=== PATIENT | female | born 1935 | race Caucasian/White ===

== ENCOUNTER 2016-09-03 09:01 | Emergency (ER) | payer MEDICARE, BC ==
[~2016-09-03] VITALS: Ht 170.2 cm; Wt 65.0 kg
[~2016-09-03 09:01] MED LIST: ALBU17I INH; AMIO200T PO; ATOR40TA16 PO; CALC750T PO; DIPH25CA PO; FURO20TA PO; GUAI200UDC PO; IPRA0.03; JINT1TAB PO; LISI10TA3 PO; METO50TA11 PO; MULT-65 PO; OMEG12002 PO; POTA-163 PO; PRED20 PO; VENTAER INH; XARE20TA PO
[2016-09-03 09:05] VITALS: BP 112/74; PULSE 106; RESP 20; TEMP 98.6; O2SAT 94; O2SAT 95
[2016-09-03] MEDS ORDERED: TRAM1CAP21 PO (09:12)
[2016-09-03] MEDS ORDERED: OMEG12002 PO (09:12)
[2016-09-03] MEDS ORDERED: CALC1TAB77 PO (09:12)
[2016-09-03] MEDS ORDERED: JINT1TAB PO (09:12)
[2016-09-03] MEDS ORDERED: VENTAER INH (09:16)
[2016-09-03] MEDS ORDERED: IPRA17I INH (09:16)
--- NOTE | 2016-09-03 09:27 | PD ---
HPI Chief Complaint: weak and dizzy Time Seen by Provider: 09:05 Travel History International Travel<30 days: No Contact w/Intl Traveler<30days: No Traveled to known affect area: No History of Present Illness HPI The patient was seen and examined in the presence of the nurse. This patient complains of feeling dizziness and generalized weakness. Duration one day. Severity is moderate. No alleviating factors. She has had a stroke before and is wheelchair bound. sHe has chronic A. fib on Xarelto. She denies injury or acute pain. PFSH Past Medical History Hx Anticoagulant Therapy: Yes (ASA) Arthritis: Yes (whole body) Asthma: No Autoimmune Disease: No Heart Rhythm Problems: No Cancer: No Cardiovascular Problems: Yes High Cholesterol: Yes Chest Pain: No Congestive Heart Failure: Yes COPD: No Cerebrovascular Accident: Yes (RT SIDE WEAKNESS A RESULT) Diminished Hearing: No Endocrine: No Gastrointestinal Disorders: No GERD: No Genitourinary: No Headaches: No Hiatal Hernia: No Hypertension: Yes (25 years ago) Immune Disorder: No Implanted Vascular Access Dvce: Yes Kidney Stones: No Musculoskeletal: Yes Neurologic: Yes Psychiatric: No Reproductive: No Respiratory: Yes Immunizations Current: Yes Migraines: No Renal Failure: No Seizures: No Sickle Cell Disease: No Sleep Apnea: Yes Menopausal: Yes Dilation and Curettage (D&C): Yes Tubal Ligation: Yes Past Surgical History Abdominal Surgery: No AICD: No Arteriovenous Shunt: No Body Medical Devices: hx: left shoulder surgery with hardware Cardiac Surgery: No Ear Surgery: No Endocrine Surgery: No Eye Surgery: No Genitourinary Surgery: No Gynecologic Surgery: No Insulin Pump: No Joint Replacement: No Neurologic Surgery: Yes (C7 FUSION 25 years ago) Oral Surgery: No Pacemaker: No Thoracic Surgery: No Tonsillectomy: Yes Other Surgery: Yes Social History Alcohol Use: Yes (2 glasses of wine on occasion) Tobacco Use: No Substance Use: No Allergies-Medications (Allergen,Severity, Reaction): Uncoded Allergies: narcotics (Allergy, Intermediate, Hives, 05/01/14) Reported Meds & Prescriptions Reported Meds & Active Scripts Active Reported Ventolin Hfa 18 GM Inh (Albuterol Sulfate) 90 Mcg/Act Aer 2 Puff INH Q4-6H PRN Atrovent HFA 12.9 GM Inh (Ipratropium [facility]) 17 Mcg/Act Aer 2 Puff INH TID Pelham 3 1200 mg (Pelham-3 Fatty Acids) 1 Cap Cap 1 Cap PO DAILY Calcium 500+D3 (Calcium Carbonate-Cholecalciferol) 1,250-400 Mg-Unit Tab 1 Tab PO DAILY Tramadol ER 24 HR (Tramadol HCl) 100 Mg Caper 100 Mg PO DAILY Jinteli 1/5 (Norethindrone-Ethinyl Estradiol) 1-5 Mg-Mcg Tab 1 Tab PO DAILY Multi-Vitamin Daily (Multiple Vitamin) 1 Tab Tab 1 Tab PO DAILY Atorvastatin (Atorvastatin Calcium) 40 Mg Tab 40 Mg PO HS Xarelto (Rivaroxaban) 20 Mg Tab 20 Mg PO DAILY@2100 30 Days Amiodarone (Amiodarone HCl) 200 Mg Tab 200 Mg PO DAILY Diphenhydramine (Diphenhydramine HCl) 25 Mg Cap 25 Mg PO HS Furosemide 20 Mg Tab 20 Mg PO DAILY 30 Days Metoprolol Succinate ER 24 HR (Metoprolol Succinate) 50 Mg Tab 50 Mg PO BID Potassium Chloride ER (Potassium Chloride) 20 Meq Tab 20 Meq PO DAILY Review of Systems General / Constitutional: No: Fever Eyes: No: Visual changes HENT: Positive: Lightheadedness, No: Headaches Cardiovascular: No: Chest Pain or Discomfort Respiratory: No: Shortness of Breath Gastrointestinal: Positive: Diarrhea, No: Abdominal Pain Genitourinary: No: Dysuria Musculoskeletal: Positive: Weakness, No: Pain Skin: No Rash Neurologic: Positive: Weakness, Dizziness Psychiatric: No: Depression Endocrine: No: Polydipsia Hematologic/Lymphatic: No: Easy Bruising Physical Exam Narrative GENERAL: Well-nourished, well-developed patient in no apparent distress. SKIN: Warm and dry. HEAD: Atraumatic. Normocephalic. EYES: Pupils equal and round. No scleral icterus. No injection or drainage. ENT: No nasal bleeding or discharge. Mucous membranes pink and moist. NECK: Trachea midline. No JVD. No meningeal signs CARDIOVASCULAR: Irregularly irregular rhythm. No murmur appreciated. RESPIRATORY: No accessory muscle use. Clear to auscultation. Breath sounds equal bilaterally. GASTROINTESTINAL: Abdomen soft, non-tender, nondistended. Hepatic and splenic margins not palpable. MUSCULOSKELETAL: No obvious deformities. No clubbing. No cyanosis. Minor symmetric edema the feet and ankles. NEUROLOGICAL: Awake and alert. No obvious cranial nerve deficits. Motor grossly within normal limits. Normal speech. PSYCHIATRIC: Appropriate mood and affect; insight and judgment seems a bit reduced Data Data Last Documented VS Vital Signs Date Time Temp Pulse Resp B/P Pulse Ox O2 Delivery O2 Flow Rate FiO2 09/03/16 09:34 95 Nasal Cannula 3 09/03/16 09:05 98.6 106 20 112/74 Orders Basic Metabolic Panel (Bmp) (09/03/16 09:18) Complete Blood Count With Diff (09/03/16:18) Urinalysis - C+S If Indicated (09/03/16:18) Ct Brain W/O Iv Contrast(Rout) (09/03/16:18) Ecg Monitoring (09/03/16:18) Iv Access Insert/Monitor (09/03/16:18) Oximetry (09/03/16:18) Sodium Chloride 0.9% Flush (Ns Flush) (09/03/16 09:30) Cath For Specimen (09/03/16:18) Labs Laboratory Tests Test 09/03/16 09:30 White Blood Count 14.2 TH/MM3 Red Blood Count 4.80 MIL/MM3 Hemoglobin 15.1 GM/DL Hematocrit 45.2 % Mean Corpuscular Volume 94.2 FL Mean Corpuscular Hemoglobin 31.4 PG Mean Corpuscular Hemoglobin 33.4 % Concent Red Cell Distribution Width 13.5 % Platelet Count 292 TH/MM3 Mean Platelet Volume 8.5 FL Neutrophils (%) (Auto) 85.9 % Lymphocytes (%) (Auto) 5.2 % Monocytes (%) (Auto) 6.4 % Eosinophils (%) (Auto) 2.3 % Basophils (%) (Auto) 0.2 % Neutrophils # (Auto) 12.2 TH/MM3 Lymphocytes # (Auto) 0.7 TH/MM3 Monocytes # (Auto) 0.9 TH/MM3 Eosinophils # (Auto) 0.3 TH/MM3 Basophils # (Auto) 0.0 TH/MM3 CBC Comment DIFF FINAL Differential Comment Urine Color YELLOW Urine Turbidity CLEAR Urine pH 6.5 Urine Specific [place] 1.018 Urine Protein NEG mg/dL Urine Glucose (UA) NEG mg/dL Urine Ketones NEG mg/dL Urine Occult Blood NEG Urine Nitrite NEG Urine Bilirubin NEG Urine Urobilinogen LESS THAN 2.0 MG/DL Urine Leukocyte Esterase NEG Urine RBC LESS THAN 1 /hpf Urine WBC 2 /hpf Urine Squamous Epithelial 3 /hpf Cells Urine Mucus FEW /lpf Microscopic Urinalysis Comment CATH-CULT NOT IND Sodium Level 139 MEQ/L Potassium Level 4.1 MEQ/L Chloride Level 107 MEQ/L Carbon Dioxide Level 26.1 MEQ/L Anion Gap 6 MEQ/L Blood Urea Nitrogen 19 MG/DL Creatinine 1.18 MG/DL Estimat Glomerular Filtration 44 ML/MIN Rate Random Glucose 78 MG/DL Calcium Level 8.2 MG/DL [facility] Medical Decision Making Medical Screen Exam Complete: Yes Emergency Medical Condition: Yes Medical Record Reviewed: Yes Differential Diagnosis Dehydration, intracranial hemorrhage, bronchitis Narrative Course I have reviewed the patient's electronic medical record. History of A. fib. Has been here for stroke and A. fib problems before IV placed CBC is normal Metabolic profile is normal Catheterized urine is clean I reviewed her EKG which shows A. fib with a rate of about 100 Extended cardiac monitoring reveals A. fib Brain CT is normal On recheck she is now a sinus rhythm in the 70s She feels much better. I have observed her for almost 3 hours and she has had no recurrence of symptoms Her is now at bedside reports that he thinks that she was straining on the toilet and passed out. She may have had a vasovagal type episode I don't see any neurologic deficits to suggest stroke Stable at this point for outpatient follow-up He is going to call the primary care and shuttle spotter for follow-ups and bring her back if she has a recurrent episode Diagnosis Primary Impression: Syncopal episodes Qualified Code: R55 - Vasovagal syncope Additional Impressions: Atrial fibrillation with rapid ventricular response Weakness Additional Instructions: The patient was advised to follow up with their physician and return if they worsen. Med/Other Pt SpecificInfo: Other Disposition: DISCHARGE HOME Condition: Stable Kingsley Clayton MD Sep 03, 2016 09:26
[2016-09-03] MEDS ORDERED: SODIUM CHLORIDE 0.9% FLUSH 5 ML FLUSH IVF PRN (09:30)
[2016-09-03 09:48] LABS: AUTOMATED NEUTROPHIL # 12.2 TH/MM3 (1.8-7.7); BASOPHIL % 0.2 % (0.0-2.0); EOSINOPHIL # 0.3 TH/MM3 (0-0.4); EOSINOPHIL % 2.3 % (0.0-4.0); HEMATOCRIT 45.2 % (35.0-46.0); HEMO FLAGS DIFF FINAL; LYMPH % 5.2 % (9.0-44.0); LYMPHOCYTE # 0.7 TH/MM3 (1.0-4.8); MEAN CELL VOLUME 94.2 FL (80.0-100.0); MEAN CORPUSCULAR HEMOGLOBIN 31.4 PG (27.0-34.0); MEAN CORPUSCULAR HGB CONC 33.4 % (32.0-36.0); MONO % 6.4 % (0.0-8.0); NEUT % 85.9 % (16.0-70.0); PLATELET COUNT 292 TH/MM3 (150-450); RED CELL DISTRIBUTION WIDTH 13.5 % (11.6-17.2); WHITE BLOOD COUNT 14.2 TH/MM3 (4.0-11.0)
[2016-09-03 09:54] LABS: BLOOD, URINE NEG (NEG); COMMENT (UR) CATH-CULT NOT IND; CULTURE IF INDICATED CATH CULTURE NOT IND; GLUCOSE,URINE NEG (NEG); KETONE, URINE NEG (NEG); MUCUS URINE FEW /lpf (OCC); NITRITE,URINE NEG (NEG); PH, URINE 6.5 (5.0-8.5); SQUAMOUS EPITHELIAL CELL URINE 3 /hpf (0-5); URINE COLOR YELLOW (YELLW/STRAW)
[2016-09-03 10:10] LABS: BICARBONATE 26.1 MEQ/L (21.0-32.0); POTASSIUM 4.1 MEQ/L (3.5-5.1)
--- NOTE | 2016-09-03 10:36 | RADRPT ---
EXAM DATE/TIME: 09/03/2016 09:33 [facility] COMPARISON: CT BRAIN W/O CONTRAST, April 30, 2016, 19:06. INDICATIONS : Dizziness. General weakness. RADIATION DOSE: 56.35 CTDIvol (mGy) MEDICAL HISTORY : Cerebrovascular disease. SURGICAL HISTORY : Fusion, cervical. ENCOUNTER: Initial ACUITY: 1 day PAIN SCALE: 0/10 LOCATION: cranial TECHNIQUE: Multiple contiguous axial images were obtained of the head. Using automated exposure control and adj ustment of the mA and/or kV according to patient size, radiation dose was kept as low as reasonably a chievable to obtain optimal diagnostic quality images. FINDINGS: There is stable symmetric ventriculomegaly and prominent periventricular white matter hypodensity whi ch appears grossly stable. There are old bilateral central gaines matter lacunar infarcts. There is no evidence of intracranial hemorrhage or mass. There is nothing to suggest acute infarction. The extrac ranial structures are stable, benign intact. CONCLUSION: No acute cranial findings Bg Johnson MD on September 03, 2016 at 10:07 Board Certified Radiologist. This report was verified electronically.
[2016-09-03 11:30] VITALS: BP 151/99; PULSE 71; RESP 20; O2SAT 98
[2016-09-03 13:00] VITALS: BP 130/72; PULSE 84; RESP 20; O2SAT 94
--- NOTE | 2016-09-03 14:16 | EKG ---
Date Performed: 09/03/2016 Time Performed: 09:15:16 PTAGE: 80 years EKG: ATRIAL FIBRILLATION BORDERLINE RIGHT AXIS DEVIATION MODERATE ST DEPRESSION ABNORMAL ECG PREVIOUS TRACING : 04/30/2016 19.15 DOCTOR: Rui Chavez Interpretating Date/Time 09/03/2016 14:13:10
== END 2016-09-03 13:22 | disposition home or self-care (01) ==
LOC: NEPE 09:01
DX: R55 Syncope and collapse (principal); I48.2 Chronic atrial fibrillation; R53.1 Weakness; Z79.01 Long term (current) use of anticoagulants
CPT/HCPCS: 70450; 80048; 81001; 85025; 93005; 99285; P9612

== ENCOUNTER → 2017-02-04 | Outpatient (CLI) | payer MEDICARE, BC ==
[~2017-02-04] MED LIST changes: -ALBU17I INH; +CALC1TAB77 PO; -CALC750T PO; -GUAI200UDC PO; -IPRA0.03; +IPRA17I INH; -LISI10TA3 PO; -PRED20 PO; +TRAM1CAP21 PO
[2017-02-04 13:39] LABS: BLOOD GAS BASE EXCESS -2.8 mmol/L (-2-2); BLOOD GAS CARBOXYHEMOGLOBIN 1.6 % (0-4); BLOOD GAS HCO3 21 mmol/L (22-26); BLOOD GAS METHEMOGLOBIN 1.2 % (0-2); BLOOD GAS O2 HGB SATURATION 90 % (90-100); BLOOD GAS OXYGEN CONTENT 17.2 Vol % (12.0-20.0); BLOOD GAS PCO2 30 mmHg (38-42); BLOOD GAS PO2 65 mmHg (61-120); BLOOD GAS TOTAL HGB 13.5 G/DL (12.0-16.0); TEMP CORR TO 98.6
[2017-02-04 13:40] LABS: CRITICAL VALUE NO; DRAW SITE RT RADIAL; FIO2 21 %; NUMBER OF ARTERIAL PUNCTURES 1; STAT NO; ULNAR PULSE PRESENT
--- NOTE | 2017-02-05 08:43 | RSPPFT ---
DATE OF PROCEDURE: 02/04/17 COMMENTS: VOLUMES DYNAMIC: FVC and FEV1 severely reduced. FLOWS: FEV1% mildly reduced; FEF 25-75 severely reduced. FLOW VOLUME LOOP: Pattern of variable intrathoracic airways obstruction. IMPRESSION: Severe obstructive ventilatory defect with a very good response to bronchodilator treatment. Patient was unable to perform diffusion or static lung volumes.
== END ==
LOC: HRSP 11:46
PROVIDERS: ATTEND Internal Medicine
DX: J44.9 Chronic obstructive pulmonary disease, unspecified (principal)
CPT/HCPCS: 36600; 82805; 94060

== ENCOUNTER 2017-09-05 13:08 | Inpatient (IN) | payer MEDICARE, BC ==
[~2017-09-05] VITALS: Ht 167.6 cm; Wt 55.0 kg
[2017-09-05] VITALS (10 sets, daily range): BP systolic 100–126; BP diastolic 56–69; PULSE 74–82; RESP 16–24; TEMP 96.3–98; O2SAT 77–97
[~2017-09-05 13:08] MED LIST changes: +METO1TAB9 PO; -METO50TA11 PO
[2017-09-05] MEDS: RESP: ALBUTEROL 2.5 MG/IPRATROPIUM 0.5 MG NEB (SCH) INH ×2 (13:26→13:27)
[2017-09-05] MEDS ORDERED: IPRA0.06 EACH NARE (13:35)
[2017-09-05] MEDS ORDERED: ALBUAER3 PO (13:35)
[2017-09-05] MEDS ORDERED: ACET-898 PO (13:35)
[2017-09-05] MEDS ORDERED: XARE15TA PO (13:35)
[2017-09-05] MEDS ORDERED: METO50TA PO (13:35)
[2017-09-05] MEDS ORDERED: ARTISOL3 EACH EYE (13:35)
[2017-09-05] MEDS ORDERED: ADVA100A INH (13:35)
[2017-09-05] MEDS ORDERED: METO-426 PO (13:35)
[2017-09-05] MEDS ORDERED: CETI10 PO (13:35)
[2017-09-05] MEDS ORDERED: DILT1CAP3 PO (13:35)
--- NOTE | 2017-09-05 13:37 | PD ---
HPI Chief Complaint: Respiratory Distress Time Seen by Provider: 13:12 Travel History International Travel<30 days: No Contact w/Intl Traveler<30days: No Traveled to known affect area: No History of Present Illness HPI This 81-year-old female is complaining of shortness of breath. She has a history of COPD. She says that she woke up this morning and was feeling short of breath. She is not aware of any fever or chills. She is not having any chest pain. She has a history of stroke and has not ambulatory. She has not been able to walk for about 2 years. She has severe rheumatoid arthritis. She has minimal smoking history. Today at the [facility] her oxygen saturation was in the 70s which is much lower than she has been previously PFSH Past Medical History Hx Anticoagulant Therapy: Yes (ASA) Arthritis: Yes (whole body) Asthma: No Autoimmune Disease: No Heart Rhythm Problems: No Cancer: No Cardiovascular Problems: Yes High Cholesterol: Yes Chest Pain: No Congestive Heart Failure: Yes COPD: No Cerebrovascular Accident: Yes (RT SIDE WEAKNESS A RESULT) Diminished Hearing: No Endocrine: No Gastrointestinal Disorders: No GERD: No Genitourinary: No Headaches: No Hiatal Hernia: No Hypertension: Yes (25 years ago) Immune Disorder: No Implanted Vascular Access Dvce: Yes Kidney Stones: No Musculoskeletal: Yes Neurologic: Yes Psychiatric: No Reproductive: No Respiratory: Yes Immunizations Current: Yes Migraines: No Renal Failure: No Seizures: No Sickle Cell Disease: No Sleep Apnea: Yes Menopausal: Yes Dilation and Curettage (D&C): Yes Tubal Ligation: Yes Past Surgical History Abdominal Surgery: No AICD: No Arteriovenous Shunt: No Body Medical Devices: hx: left shoulder surgery with hardware Cardiac Surgery: No Ear Surgery: No Endocrine Surgery: No Eye Surgery: No Genitourinary Surgery: No Gynecologic Surgery: No Insulin Pump: No Joint Replacement: No Neurologic Surgery: Yes (C7 FUSION 25 years ago) Oral Surgery: No Pacemaker: No Thoracic Surgery: No Tonsillectomy: Yes Other Surgery: Yes Social History Alcohol Use: Yes (2 glasses of wine on occasion) Tobacco Use: No (former) Substance Use: No Allergies-Medications (Allergen,Severity, Reaction): Coded Allergies: adhesive tape (Verified Allergy, Intermediate, 09/05/17) Uncoded Allergies: narcotics (Allergy, Intermediate, Hives., 09/05/17) Reported Meds & Prescriptions Reported Meds & Active Scripts Active Reported Proair Hfa (Albuterol Sulfate) 90 Mcg Hfa.aer.ad 2 Puff PO QID PRN Artificial Tears (Dextran 70/Hypromellose) 1 Each Droperette 1-2 Drop EACH EYE DIRECTED Acetaminophen Extra Strength (Acetaminophen) 500 Mg Tablet 1,000 Mg PO Q6HR PRN Metoprolol Tartrate 75 Mg Tab 75 Mg PO DAILY Metoprolol Tartrate 50 Mg Tab 50 Mg PO HS Ipratropium Nasal 0.06% Tobyhanna 2 Tobyhanna EACH NARE TID Diltiazem 24Hr ER (Diltiazem HCl) 180 Mg Cap.sa.24h 180 Mg PO DAILY Cetirizine (Cetirizine HCl) 10 Mg Tab 10 Mg PO DAILY Advair Diskus Inh (Fluticasone-Salmeterol Inh) 100-50 Mcg/Blist Aer 1 Puff INH BID Rinse mouth after use. Xarelto (Rivaroxaban) 15 Mg Tab 15 Mg PO DAILY Tramadol ER 24 HR (Tramadol HCl) 100 Mg Caper 100 Mg PO BID PRN Jinteli 1/5 (Norethindrone-Ethinyl Estradiol) 1-5 Mg-Mcg Tab 1 Tab PO DAILY Multi-Vitamin Daily (Multiple Vitamin) 1 Tab Tab 1 Tab PO DAILY Atorvastatin (Atorvastatin Calcium) 40 Mg Tab 40 Mg PO HS Amiodarone (Amiodarone HCl) 200 Mg Tab 200 Mg PO DAILY Furosemide 20 Mg Tab 20 Mg PO DAILY 30 Days Potassium Chloride ER (Potassium Chloride) 20 Meq Tab 10 Meq PO DAILY Review of Systems Except as stated in HPI: all other systems reviewed are Neg General / Constitutional: No: Fever, Chills Eyes: No: Diploplia HENT: No: Headaches, Vertigo Cardiovascular: No: Chest Pain or Discomfort Respiratory: Positive: Cough, Shortness of Breath, Wheezing Gastrointestinal: No: Vomiting, Diarrhea Genitourinary: No: Urgency, Frequency Musculoskeletal: Positive: Arthralgias, No: Myalgias Skin: No Rash Neurologic: Positive: Weakness Endocrine: No: Heat Intolerance, Cold Intolerance Physical Exam Narrative GENERAL: Thin chronically ill appearing female. She tilts to the right SKIN: Focused skin assessment warm/dry. There is senile purpura HEAD: Atraumatic. Normocephalic. EYES: Pupils equal and round. No scleral icterus. No injection or drainage. ENT: No nasal bleeding or discharge. Mucous membranes pink and moist. NECK: Trachea midline. No JVD. CARDIOVASCULAR: Regular rate and rhythm. No murmur appreciated. RESPIRATORY: accessory muscle use. Diminished breath sounds bilaterally, occasional rhonchi and scattered wheezes GASTROINTESTINAL: Abdomen soft, non-tender, nondistended. Hepatic and splenic margins not palpable. MUSCULOSKELETAL: Multiple deformities of the hands consistent with rheumatoid arthritis. There is weakness of both legs NEUROLOGICAL: Awake and alert. No obvious cranial nerve deficits. Motor grossly within normal limits. Normal speech. PSYCHIATRIC: Appropriate mood and affect; insight and judgment normal. Data Data Last Documented VS Vital Signs Date Time Temp Pulse Resp B/P (MAP) Pulse Ox O2 Delivery O2 Flow Rate FiO2 09/05/17 14:03 18 96 Nasal Cannula 4.00 09/05/17 13:20 98.0 78 126/69 (88) Orders Orders Complete Blood Count With Diff (09/05/17 13:19) Comprehensive Metabolic Panel (09/05/17 13:19) B-Type Natriuretic Peptide (09/05/17 13:19) Act Partial Throm Time (Ptt) (09/05/17 13:19) Prothrombin Time / Inr (Pt) (09/05/17 13:19) Troponin I (09/05/17 13:19) Urinalysis - C+S If Indicated (09/05/17 13:19) Influenzae A/B Antigen (09/05/17 13:19) Blood Culture (09/05/17 13:19) Iv Access Insert/Monitor (09/05/17 13:19) Electrocardiogram (09/05/17 13:19) Ecg Monitoring (09/05/17 13:19) Oximetry (09/05/17 13:19) Oxygen Administration (09/05/17 13:19) Chest, Single Ap (09/05/17 13:19) Sodium Chloride 0.9% Flush (Ns Flush) (09/05/17 13:30) Albuterol-Ipratropium Neb (Duoneb Neb) (09/05/17 13:30) Admit Order (Ed Use Only) (09/05/17 15:01) Labs Laboratory Tests Test 09/05/17 13:45 White Blood Count 11.6 TH/MM3 Red Blood Count 4.24 MIL/MM3 Hemoglobin 12.9 GM/DL Hematocrit 38.6 % Mean Corpuscular Volume 91.0 FL Mean Corpuscular Hemoglobin 30.4 PG Mean Corpuscular Hemoglobin Concent 33.4 % Red Cell Distribution Width 13.3 % Platelet Count 351 TH/MM3 Mean Platelet Volume 7.9 FL Neutrophils (%) (Auto) 81.6 % Lymphocytes (%) (Auto) 7.2 % Monocytes (%) (Auto) 5.9 % Eosinophils (%) (Auto) 3.2 % Basophils (%) (Auto) 2.1 % Neutrophils # (Auto) 9.5 TH/MM3 Lymphocytes # (Auto) 0.8 TH/MM3 Monocytes # (Auto) 0.7 TH/MM3 Eosinophils # (Auto) 0.4 TH/MM3 Basophils # (Auto) 0.2 TH/MM3 CBC Comment AUTO DIFF Differential Comment AUTO DIFF CONFIRMED Prothrombin Time 14.0 SEC Prothromb Time International Ratio 1.4 RATIO Activated Partial Thromboplast Time 37.8 SEC Blood Urea Nitrogen 20 MG/DL Creatinine 1.50 MG/DL Random Glucose 88 MG/DL Total Protein 7.5 GM/DL Albumin 2.5 GM/DL Calcium Level 8.0 MG/DL Alkaline Phosphatase 63 U/L Aspartate Amino Transf (AST/SGOT) 64 U/L Alanine Aminotransferase (ALT/SGPT) 62 U/L Total Bilirubin 0.9 MG/DL Sodium Level 136 MEQ/L Potassium Level 4.5 MEQ/L Chloride Level 103 MEQ/L Carbon Dioxide Level 24.9 MEQ/L Anion Gap 8 MEQ/L Estimat Glomerular Filtration Rate 33 ML/MIN Troponin I LESS THAN 0.02 NG/ML B-Type Natriuretic Peptide 205 PG/ML [facility] Medical Decision Making Medical Screen Exam Complete: Yes Emergency Medical Condition: Yes Medical Record Reviewed: Yes Differential Diagnosis Differential includes pneumonia, CHF, COPD exacerbation Narrative Course Patient had been given Solu-Medrol en route by paramedics. She has been given repeated nebulizer treatments her wheezing has resolved she still has occasional rhonchi. Her oxygen saturation on 5 L is 94%. I did cut off her oxygen and her saturation dropped to 86 very quickly. Chest x-ray shows progression of some interstitial bilateral changes. Her white count is 11,000. Case discussed with Dr. Duarte. She will be admitted for COPD exacerbation Diagnosis Primary Impression: COPD exacerbation Additional Impression: Hypoxia Admitting Information Admitting Physician Requests: Admit Ramon Andres MD Sep 05, 2017 13:37
[2017-09-05 14:04] LABS: AUTOMATED NEUTROPHIL # 9.5 TH/MM3 (1.8-7.7); BASOPHIL # 0.2 TH/MM3 (0-0.2); BASOPHIL % 2.1 % (0.0-2.0); EOSINOPHIL # 0.4 TH/MM3 (0-0.4); EOSINOPHIL % 3.2 % (0.0-4.0); HEMATOCRIT 38.6 % (35.0-46.0); HEMOGLOBIN 12.9 GM/DL (11.6-15.3); LYMPH % 7.2 % (9.0-44.0); LYMPHOCYTE # 0.8 TH/MM3 (1.0-4.8); MEAN CORPUSCULAR HEMOGLOBIN 30.4 PG (27.0-34.0); MEAN CORPUSCULAR HGB CONC 33.4 % (32.0-36.0); MEAN PLATELET VOLUME 7.9 FL (7.0-11.0); MONO % 5.9 % (0.0-8.0); MONOCYTE # 0.7 TH/MM3 (0-0.9); NEUT % 81.6 % (16.0-70.0); PLATELET COUNT 351 TH/MM3 (150-450); RED BLOOD COUNT 4.24 MIL/MM3 (4.00-5.30); RED CELL DISTRIBUTION WIDTH 13.3 % (11.6-17.2); WHITE BLOOD COUNT 11.6 TH/MM3 (4.0-11.0)
[2017-09-05 14:12] LABS: CHLORIDE 103 MEQ/L (98-107); SODIUM (NA) 136 MEQ/L (136-145)
[2017-09-05 14:16] LABS: ALBUMIN 2.5 GM/DL (3.4-5.0); BICARBONATE 24.9 MEQ/L (21.0-32.0); BLOOD UREA NITROGEN 20 MG/DL (7-18); GLUCOSE,RANDOM 88 MG/DL (74-106)
[2017-09-05 14:18] LABS: INTERNATIONAL NORMALIZED RATIO 1.4 RATIO
[2017-09-05 14:19] LABS: ALT (GPT) 62 U/L (10-53); AST (GOT) 64 U/L (15-37); GLOMERULAR FILTRATION RATE 33 ML/MIN (>89)
[2017-09-05 14:20] LABS: TOTAL BILIRUBIN ADULT 0.9 MG/DL (0.2-1.0); TOTAL PROTEIN 7.5 GM/DL (6.4-8.2)
[2017-09-05 14:22] LABS: ALKALINE PHOSPHATASE 63 U/L (45-117)
[2017-09-05 14:24] LABS: TROPONIN I LESS THAN 0.02 NG/ML (0.02-0.05)
--- NOTE | 2017-09-05 14:25 | RADRPT ---
EXAM DATE/TIME: 09/05/2017 13:41 [facility] COMPARISON: CHEST PA & LAT, April 30, 2016, 22:31. CHEST SINGLE AP, February 24, 2016, 10:10. INDICATIONS : Short of breath. MEDICAL HISTORY : Congestive heart failure. Hypercholesterolemia. Rheumatoid arthritis. Hypertension. Stroke. Osteo porosis. Gout. A-fib. Sleep apnea. SURGICAL HISTORY : Fusion, cervical. Tubal ligation. Right shoulder. D&C. ENCOUNTER: Initial ACUITY: 1 day PAIN SCORE: 0/10 LOCATION: chest FINDINGS: A single portable frontal view the chest shows interstitial prominence throughout the lungs bilateral ly. This involves the upper lobes and lower lobes. These have progressed from the prior study. No int ra-alveolar infiltrates. No effusions. Heart is normal in size. Aorta is calcified. Orthopedic screw is seen involving the left scapula. CONCLUSION: Progression in bilateral chronic interstitial changes. No acute infiltrate. Shaggy Cantor Jr., MD on September 05, 2017 at 14:21 Board Certified Radiologist. This report was verified electronically.
[2017-09-05] MEDS: SODIUM CHLOR 0.9% 1000 ML INJ 1,000 ML IV SCH (16:54)
[2017-09-05] MEDS: RESP: ALBUTEROL 2.5 MG/IPRATROPIUM 0.5 MG NEB (SCH) NEB (19:06)
--- NOTE | 2017-09-05 19:46 | MH ---
cc: HALLEY EPPS MD DATE OF ADMISSION 09/05/2017 ADMISSION DIAGNOSIS Exacerbation of COPD, hypoxemia. HISTORY OF PRESENT ILLNESS This 81-year white female, relatively new to the undersigned physician, has a history of COPD and normally is not oxygen dependent. She has been complaining of some increased shortness of breath and was started on nebulizer treatments with albuterol and Ipratropium bromide. The patient initially had some improvement, but over the last 48 hours she has had increasing shortness of breath. On the morning of admission, she was lethargic and visibly short of breath. The home health nurse was there to see her and checked oxygen saturation which revealed a level of 79% on room air. At that time, the undersigned physician was notified and the personnel at the assisted living facility were instructed to contact EMS and have the patient transferred to this facility for further evaluation and treatment. The patient denies any cough or sputum production. She has no chest pain or palpitations. She has had no abdominal pain, nausea or vomiting. The patient spends most of the day in the bed, but she is up in a wheelchair for several hours each day. She requires total assistance with all of her activities of daily living. She has a previous history of a cerebrovascular accident and she also has rheumatoid arthritis with advanced musculoskeletal deformities as a result. The patient has a history of atrial fibrillation and remains on Xarelto for prophylaxis against embolism. She has had no melena or hematochezia. She states her bowels are moving regularly. She is continent of urine for the most part. She has had no lateralizing neurologic deficits. No visual changes. No headache. She does have some audible wheezing at times. Her appetite has been good. PAST MEDICAL HISTORY 1. Rheumatoid arthritis 2. Cervical and lumbar disk disease with spinal stenosis, 3. Hypertension, 4. Peripheral vascular disease, 5. History of CVA 6. Paroxysmal atrial fibrillation for which she sees Dr. Velez 7. Chronic obstructive pulmonary disease 8. Osteoporosis. 9. History of alcohol abuse. 10. Status post cervical spine surgery 11. Tonsillectomy 12. Foot surgery. 13. History of recurrent postmenopausal vaginal bleeding from a probable fibroid. It is being treated with hormone suppression. MEDICATIONS Current are 1. Ipratropium bromide. 2. Albuterol nebulizer solution 0.5 mg/2.5 mg per three mL, 3 mL four times a day as needed. 3. Artificial tears 1.4% 1-2 drops in each eye four times a day as needed. 4. Acetaminophen 500 mg 2 tablets every 6 hours as needed for mild pain 5. Xarelto 15 mg daily. 6. Multivitamin 1 tablet daily. 7. Cetirizine 10 mg at bedtime 8. Ipratropium bromide nasal spray 0.03% two sprays in each nostril three times a day as needed. 9. Diltiazem ER 180 mg daily. 10. Advair diskus 100/50 mcg one inhalation twice daily. 11. Albuterol sulfate inhaler two puffs four times a day as needed. 12. Klor-Con 20 mEq 1/2 tablet daily. 13. Metoprolol tartrate 50 mg 1.5 tablets in the morning and 1 tablet in the evening. 14. Furosemide 20 mg daily. 15. Amiodarone 200 mg daily. 16. Atorvastatin 40 mg daily 17. Ginteli 1/5 mg - mcg 1 tablet daily. 18. Tramadol ER 100 mg 1-2 tablets daily as needed for pain 19. Melatonin 5 mg at bedtime as needed for insomnia. ALLERGIES NARCOTIC ANALGESICS - RASH FAMILY HISTORY Noncontributory SOCIAL HISTORY She is . She lives in an assisted living facility. 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 She smoked one pack of cigarettes a day for 30 years but quit in the . She does drink two glasses of wine each night with dinner. REVIEW OF SYSTEMS Negative except as outlined above. PHYSICAL EXAMINATION VITAL SIGNS: Upon arrival to the emergency department, blood pressure 126/69 with a heart rate of 78, respirations 24, temperature 98 degrees Fahrenheit, oxygen saturation on room air was 77%. At the current time, blood pressure is 113/59 with a heart rate of 82, respirations 16, temperature 96.9 degrees Fahrenheit, oxygen saturation on three liters per minute per nasal cannula is between 94 and 95%. GENERAL: This is a well-nourished elderly white female lying in bed with obvious extensive musculoskeletal deformities but in no acute distress. HEENT: Pupils equal, round, reactive to light. Extraocular movements are intact. Sclerae anicteric. Conjunctivae are pink. Mouth and throat reveal dry mucous membranes. No erythema or exudates. NECK: Supple without lymphadenopathy, JVD, bruits or thyromegaly. CARDIOVASCULAR: An irregular rate and rhythm with 2/6 systolic murmur heard best at the right upper sternal border. LUNGS: Expiratory wheezes bilaterally. There is restricted air exchange. No rhonchi or rales noted. BACK/SPINE: Reveal kyphotic and scoliotic deformities of the thoracic spine. ABDOMEN: Soft, nontender, nondistended with bowel sounds present. No masses palpable. No HSM. /RECTAL: Deferred. LOWER EXTREMITIES: No appreciable edema. No calf tenderness. No Homans' sign. Absent distal pulses. MUSCULOSKELETAL: Flexion contractures of the bilateral hands and elbows. There is reduced range of motion of bilateral shoulders. There is flexion contractures of bilateral knees. There is wasting of the large muscle groups of the extremities and upper back. NEUROLOGIC: The patient is awake and alert, oriented x3. Speech is intact. Cranial nerves are intact. There are no obvious lateralizing deficits. Mood good. Affect appropriate. LABORATORY DATA White blood cell count was 11.6, hemoglobin 12.9, hematocrit 38.6, platelet count normal at 351,000, white blood count differential showed 81.6 polys, 7.2 lymphocytes, 5.9 monocytes. Comprehensive metabolic profile was significant for a BUN of 20, creatinine of 1.5, calcium was low at 8.0. AST was 64 which is elevated. ALT elevated at 62. Albumin low at 2.5. BNP was 205, troponin less than 0.02. INR 1.4, APTT of 37.8. IMAGING STUDIES Chest x-ray revealed progression of bilateral chronic interstitial changes. No acute infiltrate. CARDIOLOGY STUDIES EKG reveals sinus rhythm with a rate of 78 bpm, no acute ST or T-wave changes. No conduction abnormalities noted. IMPRESSION AND PLAN 1. This 81-year-old white female presents with hypoxemia and wheezing consistent with an exacerbation of COPD. She will be admitted to a medical-surgical bed with telemetry. She will be provided with supplemental oxygen to bring oxygen saturations greater than 92%. We will provide nebulizer treatments with DuoNebs and begin Solu-Medrol. I am going to order a CT scan of the chest without contrast to evaluate the extent of the pulmonary interstitial fibrotic changes, as the patient may have progressing pulmonary fibrosis which could be contributing to her current status. We will monitor oxygen saturations and wean oxygen as tolerated. I do not believe patient needs an antibiotic at this point as she has no cough. No evidence of an infiltrate, no fever. 2. History of paroxysmal atrial fibrillation. She is going to continue with current dosage of Xarelto. No evidence of any bleeding complications. She is currently in sinus rhythm. We will place the patient on telemetry to monitor for any recurrence of atrial fibrillation and any rapid ventricular response. I have ordered a TSH as the patient is on Amiodarone which can affect thyroid studies. Based on results, we will determine if the patient needs any thyroid supplementation. 3. Elevated creatinine. The patient's creatinine is higher than it has been previously, based on previous hospital records. She appears to have some mild dehydration. I am going to provide the patient with some IV fluids. We will monitor BUN and creatinine. We will track intake and output closely. 4. Abnormal liver function studies. Her AST and ALT are elevated. I have reviewed her prior medical records and her hospitalizations as far back is 2014 have revealed abnormal LFTs. I do not see that there has ever been an evaluation. At this point, I am going to check hepatitis titers, JAUN, ferritin level and iron level. We will consider CT or ultrasound of the liver if needed. I have discontinued the patient's atorvastatin, as it could be contributing to elevation in liver function studies. 5. Bilateral severe rheumatoid arthritis with musculoskeletal deformities. The patient will have Tylenol and tramadol available to receive as needed for pain relief. 6. Allergic rhinitis. We will continue with Cetirizine at 10 mg daily. I have explained to the patient her current condition and the plan of care. She expressed understanding and agreement. MD JONG Perez/ /6:39 PM /7:11 PM
[2017-09-05] MEDS: METOPROLOL TARTRATE 50 MG TAB PO SCH (21:00)
[2017-09-05] MEDS ORDERED: ATORVASTATIN 40 MG TAB PO SCH (21:00)
[2017-09-05] MEDS: methylPREDNISolone SOD SUCC 40 MG/1 ML VIAL IV PUSH SCH (21:28)
--- NOTE | 2017-09-05 23:35 | RADRPT ---
EXAM DATE/TIME: 09/05/2017 22:57 [facility] COMPARISON: No previous studies available for comparison. INDICATIONS : Short of breath. Evaluate for pulmonary fibrosis. RADIATION DOSE: 11.23 CTDIvol (mGy) MEDICAL HISTORY : Chronic obstructive pulmonary disease. Cerebrovascular disease. Congestive heart failure. Hypertensi on. SURGICAL HISTORY : Tubal ligation. ENCOUNTER: Initial ACUITY: 1 day PAIN SCALE: 0/10 LOCATION: Bilateral chest TECHNIQUE: Volumetric scanning of the chest was performed. Using automated exposure control and adjustment of t he mA and/or kV according to patient size, radiation dose was kept as low as reasonably achievable to obtain optimal diagnostic quality images. DICOM format image data is available electronically for r eview and comparison. Follow-up recommendations for detected pulmonary nodules are based at a minimum on nodule size and pa tient risk factors according to Fleischner Society Guidelines. FINDINGS: Moderate to severe thickening of the interlobular septa with honeycombing seen of both lungs. This is fairly diffuse but with a slight upper lobe predominance, not typical of usual interstitial pneumoni tis. Tiny pleural effusions are present. Heart is enlarged, especially the left atrium. There is aortic and mitral valve calcification. There is atherosclerosis and tortuosity of the thoracic aorta. No aneurysm. Multiple mediastinal lymph nodes measuring up to 12 mm in greater short axis dimension are present. Diffusely increased density liver present. CONCLUSION: 1. Moderate to severe nonspecific chronic interstitial lung disease. 2. Trace bilateral pleural effusions. 3. Upper limits of normal to slightly enlarged mediastinal lymph nodes. 4. Tortuous and atherosclerotic thoracic aorta. No aneurysm. 5. Left atrial enlargement. There is aortic and mitral valve calcification. 6. Increased density liver. Differential includes side effects from medication such as amiodarone and mineral deposition. If the patient has a history of amiodarone use, this may also explain the pulmon ed fibrosis findings. Bg Haley MD on September 05, 2017 at 23:24 Board Certified Radiologist. This report was verified electronically.
[2017-09-05 23:48] LABS: BILIRUBIN, URINE NEG (NEG); BLOOD, URINE MOD (NEG); GLUCOSE,URINE NEG (NEG); KETONE, URINE TRACE mg/dL (NEG); NITRITE,URINE NEG (NEG); URINE LEUKOCYTE ESTERASE SMALL (NEG)
[2017-09-05 23:59] LABS: URINE COLOR YELLOW (YELLW/STRAW)
[2017-09-06] VITALS (8 sets, daily range): BP systolic 104–121; BP diastolic 56–83; PULSE 76–87; RESP 18–24; TEMP 95.8–98.2; O2SAT 92–94
[2017-09-06] LABS: BACTERIA, URINE MOD /hpf
[2017-09-06] MEDS: SODIUM CHLOR 0.9% 1000 ML INJ 1,000 ML IV SCH ×2 (06:35→17:58)
[2017-09-06] MEDS: methylPREDNISolone SOD SUCC 40 MG/1 ML VIAL IV PUSH SCH ×3 (06:35→20:38)
[2017-09-06 07:17] LABS: AUTOMATED NEUTROPHIL # 7.7 TH/MM3 (1.8-7.7); BASOPHIL % 0.4 % (0.0-2.0); EOSINOPHIL % 0.1 % (0.0-4.0); HEMATOCRIT 32.3 % (35.0-46.0); HEMOGLOBIN 11.2 GM/DL (11.6-15.3); LYMPH % 4.2 % (9.0-44.0); LYMPHOCYTE # 0.3 TH/MM3 (1.0-4.8); MEAN CELL VOLUME 91.6 FL (80.0-100.0); MEAN CORPUSCULAR HEMOGLOBIN 31.7 PG (27.0-34.0); MEAN CORPUSCULAR HGB CONC 34.6 % (32.0-36.0); MEAN PLATELET VOLUME 7.7 FL (7.0-11.0); MONOCYTE # 0.2 TH/MM3 (0-0.9); NEUT % 93.3 % (16.0-70.0); PLATELET COUNT 328 TH/MM3 (150-450); RED BLOOD COUNT 3.53 MIL/MM3 (4.00-5.30); RED CELL DISTRIBUTION WIDTH 13.3 % (11.6-17.2); WHITE BLOOD COUNT 8.2 TH/MM3 (4.0-11.0)
[2017-09-06 07:35] LABS: ALBUMIN 2.1 GM/DL (3.4-5.0); BICARBONATE 23.4 MEQ/L (21.0-32.0); CALCIUM 7.3 MG/DL (8.5-10.1)
[2017-09-06 07:41] LABS: CALCIUM-PROTEIN CORRECTED 7.8 MG/DL (8.5-10.1); CREATININE 1.2 MG/DL (0.50-1.00); TOTAL BILIRUBIN ADULT 0.8 MG/DL (0.2-1.0); TOTAL PROTEIN 6.2 GM/DL (6.4-8.2)
[2017-09-06] MEDS: RESP: ALBUTEROL 2.5 MG/IPRATROPIUM 0.5 MG NEB (SCH) NEB ×3 (07:52→19:45)
--- NOTE | 2017-09-06 08:46 | HHI.PR ---
Subjective Remarks Feeling better. States no SOB with O2 in place. No cough. Appetite good. Denies chest pain, nausea or emesis. Current Medications Medications (Trade) Dose Ordered Sig/Mart Route Start Time Stop Time Status Last Admin (NS Flush) 2 ml UNSCH PRN IVF 09/05/17 13:30 Sodium Chloride 1,000 ml @ 84 mls/hr [id number] IV 09/05/17 16:30 09/06/17 06:35 (Duoneb Neb) 1 ampule Q6HR WHILE AWAKE NEB NEB 09/05/17 20:00 09/06/17 07:52 (Tylenol) 1,000 mg Q6HR PRN PO 09/05/17 20:00 (Cordarone) 200 mg DAILY PO 09/06/17 09:00 (ZyrTEC) 10 mg DAILY PO 09/06/17 09:00 (Lasix) 20 mg DAILY PO 09/06/17 09:00 (Lopressor) 50 mg HS PO 09/05/17 21:00 (Lopressor) 75 mg DAILY PO 09/06/17 09:00 (KCl) 10 meq DAILY PO 09/06/17 09:00 (Xarelto) 15 mg DAILY PO 09/06/17 09:00 (Tears Naturale Opth Soln) 1 drop TID EACH EYE 09/06/17 09:00 (Cardizem Cd) 180 mg DAILY PO 09/06/17 09:00 Non-Formulary Medication 1 tab DAILY PO 09/06/17 09:00 Future Hold (SoluMEDROL INJ) 40 mg Q8HR IV PUSH 09/05/17 22:00 09/06/17 06:35 (Ultram) 50 mg Q8HR PRN PO 09/05/17 22:00 Objective Vital Signs Date Time Temp Pulse Resp B/P (MAP) Pulse Ox O2 Delivery O2 Flow Rate FiO2 09/06/17 04:00 96.2 84 20 116/56 (76) 92 09/06/17 02:00 95.8 76 24 121/83 (96) 94 09/05/17 20:20 74 09/05/17 20:06 77 09/05/17 20:00 96.3 80 16 100/59 (73) 94 09/05/17 20:00 94 Nasal Cannula 4.00 Humidified 09/05/17 19:06 93 Nasal Cannula 4.00 09/05/17 16:37 96.9 82 16 113/59 (77) 94 09/05/17 15:57 90 18 105/56 (72) 95 Nasal Cannula 3.00 09/05/17 14:03 18 96 Nasal Cannula 4.00 09/05/17 14:03 96 Nasal Cannula 4.00 09/05/17 13:45 100 Nasal Cannula 6.00 09/05/17 13:28 97 Nasal Cannula 6.00 09/05/17 13:20 98.0 78 24 126/69 (88) 95 09/05/17 13:10 24 77 Room Air I/O 09/05/17 09/05/17 09/05/17 09/06/17 09/06/17 09/06/17 07:00 15:00 23:00 07:00 15:00 23:00 Intake Total 1194 ml Balance 1194 ml Intake Oral 240 ml IV Total 954 ml # Voids 3 # Bowel Movements 0 CV: RRR with systolic murmur Lungs: CTA Abd: soft, NT, ND, +BS Result Diagram: 09/06/17 0635 09/06/17 0635 Assessment and Plan Problem List: (1) Hypoxemia ICD Codes: R09.02 - Hypoxemia Status: Acute Plan: CT chest reveals increased interstitial lung disease. Radiology suggests possible result of Amiodarone. Amiodarone induced pulmonary toxicity can present in similar fashion as acute or subacute fibrosis with hypoxemia. 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 Will consult Pulmonology for assistance with treatment. Patient is currently receiving Solumedrol. Continue with supplemental O2 and nebs. Wheezing improved. I explained to the patient about the possible Amiodarone induced toxicity and that it will need to be treated for months with uncertain prognosis of improvement. (2) Paroxysmal atrial fibrillation ICD Codes: I48.0 - Paroxysmal atrial fibrillation Status: Chronic Plan: Will discontinue Amiodarone as above. Cont Metoprolol and Xarelto. Monitor for RVR (3) Abnormal LFTs ICD Codes: R94.5 - Abnormal results of liver function studies Status: Chronic Plan: The patient has had abnormal LFT's in past. Since she is new to me, I do not have recent labs to see if this is chronic or recurrent. I have discontinued Statin. LFT's better today. Will follow. Hepatitis titers pending. Iron low and ferritin normal. JAUN pending. Portion of liver visualized on CT may be suggestive of Amiodarone induced hepatotoxicity. (4) Hyperlipidemia ICD Codes: E78.5 - Hyperlipidemia, unspecified Status: Chronic Plan: Statin discontinued due to abnormal LFT's (5) Rheumatoid arthritis ICD Codes: M06.9 - Rheumatoid arthritis, unspecified Status: Chronic Plan: Patient has extensive joint deformities and disability. Tylenol and Tramadol prn. (6) Hypertension ICD Codes: I10 - Hypertension Status: Chronic Plan: Blood pressure under adequate control with current medications Problem Qualifiers (1) Hyperlipidemia: Qualified Codes: E78.2 - Mixed hyperlipidemia (2) Rheumatoid arthritis: (3) Hypertension: Qualified Codes: I10 - Essential (primary) hypertension Riki Duarte MD Sep 06, 2017 08:46
[2017-09-06] MEDS ORDERED: AMIODARONE 200 MG TAB PO SCH (09:00)
[2017-09-06] MEDS ORDERED: NORETHINDRONE ETHINYL ESTRADIOL PO SCH (09:00)
[2017-09-06] MEDS: ARTIFICIAL TEARS OPTH SOLN 15 ML BTL EACH EYE SCH ×3 (09:04→17:58)
[2017-09-06] MEDS: METOPROLOL TARTRATE 25 MG TAB PO SCH (09:08)
[2017-09-06] MEDS: CETIRIZINE HCL 10 MG TAB PO SCH (09:08)
[2017-09-06] MEDS: DILTIAZEM-CD 180 MG CAP ER PO SCH (09:08)
[2017-09-06] MEDS: RIVAROXABAN 15 MG TAB PO SCH (09:08)
[2017-09-06] MEDS: FUROSEMIDE 20 MG TAB PO SCH (09:10)
[2017-09-06] MEDS: POTASSIUM CHLORIDE 20 MEQ CONTROLLED RELEASE TAB PO SCH (09:10)
[2017-09-06 11:32] LABS: HEPATITIS A AB IGM NEGATIVE (NEGATIVE); HEPATITIS B CORE AB IGM NEGATIVE (NEGATIVE)
--- NOTE | 2017-09-06 14:12 | EKG ---
Date Performed: 09/05/2017 Time Performed: 13:37:35 PTAGE: 81 years EKG: Sinus rhythm NORMAL ECG PREVIOUS TRACING : 09/03/2016 09.15 Since the prior tracing, the rhythm is more regular and the serial change may represent resolution of atrial fibrillation. There is too much baseline artifact o n both tracings to be certain that the prior tracing was definitely atrial fibrillation. Clinical cor relation remains important. DOCTOR: Sharon Manuel Interpretating Date/Time 09/06/2017 14:11:10
[2017-09-06] MEDS: [UNRECOGNIZED DRUG - OTHER] PO SCH (14:27)
[2017-09-06 15:35] LABS: ANA SCREEN NEG (NEG)
--- NOTE | 2017-09-06 18:32 | MB ---
cc: DAYNE OSCAR M.D. DATE OF CONSULTATION: 09/06/2017. REASON FOR CONSULTATION: COPD exacerbation, pulmonary fibrosis. HISTORY OF PRESENT ILLNESS: The patient is a 81-year-old female who was admitted with increasing shortness of breath, no cough, no expectoration. No fever. No chills. Treated with intravenous steroids and bronchodilator with improvement. Chest x-ray with pulmonary fibrosis, etiology not clear. The patient does have multiple medical problems including rheumatoid arthritis and she is on amiodarone as well. PAST MEDICAL HISTORY: Her past medical history is that of: 1. COPD. 2. Rheumatoid arthritis. 3. Hypertension. 4. Previous CVA. 5. Paroxysmal atrial fibrillation. 6. Alcohol abuse. 7. Cervical spine surgery. 8. Tonsillectomy and adenoidectomy as a child. MEDICATIONS: Her medications include: 1. Nebulized albuterol and Ipratropium. 2. Xarelto. 3. Cetirizine. 4. Diltiazem. 5. Advair twice a day. 6. Albuterol PRN. 7. Potassium. 8. Metoprolol. 9. Lasix. 10. Amiodarone. 11. Atorvastatin. 12. . 13. Tramadol. 14. Melatonin. ALLERGIES: NARCOTIC ANALGESICS. FAMILY HISTORY: Noncontributory. SOCIAL HISTORY: The patient has a thirty pack/year smoking history; however, has not smoked since 1989. She drinks two glasses of wine a day with dinner. REVIEW OF SYSTEMS: A twelve-point review of systems is as per the history of present illness and past history, otherwise negative. PHYSICAL EXAMINATION: GENERAL: On exam, the patient is alert. She tells me she is breathing a little bit better since she came in. VITAL SIGNS: Temperature 98, pulse 80, respirations 20, blood pressure 126/70. HEAD, EYES, EARS, NOSE, THROAT: Unremarkable. Eyes without icterus. NECK: Without adenopathy, thyroid enlargement, central trachea. CHEST: A few scattered rhonchi at the bases. CARDIAC: PMI not appreciated. S1 and S2 audible. No murmur, no rub. ABDOMEN: Lax. Bowel sounds audible. EXTREMITIES: No cyanosis, clubbing or edema. SKIN: Normal. LYMPHATIC: No lymphadenopathy. LABORATORY STUDIES: White count 11,000, hemoglobin 12, hematocrit 38. BUN is 20, creatinine 1.5, INR 1.4. IMAGING STUDIES: Chest x-ray shows worsening chronic interstitial change. IMPRESSION: 1. COPD exacerbation. 2. Pulmonary fibrosis, questionably worsening. 3. Paroxysmal atrial fibrillation. 4. Abnormal liver functions. 5. Rheumatoid arthritis. PLAN: The patient does have pulmonary fibrosis of significance, the etiology of which is not obvious. The patient has several reasons for developing interstitial lung disease including her rheumatoid arthritis, amiodarone therapy or chronic fibrosis with no specific etiology. At this point, she seems to be improving with IV steroid therapy, bronchodilator therapy and this should be continued as long as she continues improving. Amiodarone therapy has been discontinued because of possible toxicity which is appropriate as well. We will follow her course along with you, and depending on progress proceed further. I do thank you for asking me to partake in Mrs. López's care. Dayne Oscar MD WWW/SILVIO /5:58 PM /6:20 PM
[2017-09-06] MEDS: METOPROLOL TARTRATE 50 MG TAB PO SCH (20:38)
[2017-09-07] VITALS (23 sets, daily range): BP systolic 103–149; BP diastolic 50–71; PULSE 75–85; RESP 17–60; TEMP 97.1–98.6; O2SAT 85–100
[2017-09-07] MEDS: RESP: ALBUTEROL 2.5 MG/IPRATROPIUM 0.5 MG NEB (SCH) NEB ×5 (05:02→20:55)
[2017-09-07] MEDS: methylPREDNISolone SOD SUCC 40 MG/1 ML VIAL IV PUSH SCH ×4 (05:10→23:53)
[2017-09-07] MEDS: SODIUM CHLOR 0.9% 1000 ML INJ 1,000 ML IV SCH (05:11)
[2017-09-07 08:47] LABS: CHLORIDE 112 MEQ/L (98-107); SODIUM (NA) 142 MEQ/L (136-145)
[2017-09-07 08:50] LABS: ALBUMIN 2.3 GM/DL (3.4-5.0); CALCIUM 7.9 MG/DL (8.5-10.1)
[2017-09-07 08:51] LABS: BLOOD UREA NITROGEN 20 MG/DL (7-18); GLUCOSE,RANDOM 121 MG/DL (74-106)
--- NOTE | 2017-09-07 08:52 | RADRPT ---
EXAM DATE/TIME: 09/07/2017 08:25 [facility] COMPARISON: CHEST PA & LAT, April 30, 2016, 22:31. CHEST SINGLE AP, September 05, 2017, 13:41. INDICATIONS : Short of breath. MEDICAL HISTORY : Congestive heart failure. Hypercholesterolemia. Rheumatoid arthritis. SURGICAL HISTORY : Fusion, cervical. Tubal ligation. Right shoulder. D&C. ENCOUNTER: Initial ACUITY: 4 - 6 days PAIN SCORE: 3/10 LOCATION: Bilateral chest FINDINGS: The heart size is normal. There is diffuse chronic appearing interstitial disease being worse at the upper lungs. There is minimal blunting of the costophrenic angles which may represent minimal effusio ns. Surgical hardware is seen at the left scapula. CONCLUSION: Diffuse interstitial disease. Much of this appears chronic. Some degree of superimposed edema cannot be excluded. Bg Silverman MD on September 07, 2017 at 8:46 Board Certified Radiologist. This report was verified electronically.
[2017-09-07 08:54] LABS: ALT (GPT) 62 U/L (10-53); AST (GOT) 47 U/L (15-37); GLOMERULAR FILTRATION RATE 53 ML/MIN (>89)
[2017-09-07 08:55] LABS: TOTAL BILIRUBIN ADULT 0.8 MG/DL (0.2-1.0); TOTAL PROTEIN 6.9 GM/DL (6.4-8.2)
[2017-09-07 08:56] LABS: ALKALINE PHOSPHATASE 55 U/L (45-117)
[2017-09-07] MEDS ORDERED: FUROSEMIDE 20 MG/2 ML VIAL IV PUSH ONE (09:00)
[2017-09-07] MEDS ORDERED: methylPREDNISolone SOD SUCC 125 MG/2 ML VIAL IV ONE (09:00)
[2017-09-07] MEDS: ARTIFICIAL TEARS OPTH SOLN 15 ML BTL EACH EYE SCH ×3 (09:00→18:00)
--- NOTE | 2017-09-07 09:24 | PQ ---
Physician Query Response Document PATIENT: MARCUS CABAN : 1935 ADMIT DATE: 09/05/2017 3:02 PM DISCH DATE: RESPONDING PROVIDER #: Nicole QUERY TEXT: Respiratory Failure Acuity and Type Based on your medical judgment, please clarify which, if any, of the following conditions are respons ible for these findings:. Please specify the type and acuity (includes suspected or probable cause ) Such as: -- Acute respiratory failure - With hypoxia - With hypercapnia -- Chronic respiratory failure - With hypoxia - With hypercapnia -- Acute on chronic respiratory failure - With hypoxia - With hypercapnia -- Other, please specify The patient's Clinical Indicators include: Physical exam on admission w finding of Respiratory distress and initial o2 sats 77% INDICATIONS RR > 20 accessory muscle use. Diminished breath sounds bilaterally, occasional rhonchi and scattered wheezes with labored breathing. Patient is not on oxygen at home. INITIAL TREATMENT WITH O2 6L WITH TITRATED Q 2 HR / PRN AND IS CURRENTLY ON 02 3 - 4 L DUONEB Q 15 MIN X3 AND Q 6 HR WA AND SOLUMEDROL IV Q 8 HR Query created by: Soni Juarez on 09/06/2017 8:13 AM RESPONSE TEXT: the patient has acute respiratory failure with hypoxemia due to subacute pulmonary fibrosis. The etio logy of the pulmonary fibrosis is uncertain but pulmonary toxicity from amiodarone is suspected. Electronically signed by: Riki Duarte MD 09/07/2017 9:20 AM
[2017-09-07] MEDS: POTASSIUM CHLORIDE 20 MEQ CONTROLLED RELEASE TAB PO SCH (09:38)
[2017-09-07] MEDS: DILTIAZEM-CD 180 MG CAP ER PO SCH (09:38)
[2017-09-07] MEDS: [UNRECOGNIZED DRUG - OTHER] PO SCH (09:38)
[2017-09-07] MEDS: CETIRIZINE HCL 10 MG TAB PO SCH (09:39)
[2017-09-07] MEDS: METOPROLOL TARTRATE 25 MG TAB PO SCH (09:39)
[2017-09-07] MEDS: RIVAROXABAN 15 MG TAB PO SCH (09:39)
[2017-09-07] MEDS: FUROSEMIDE 20 MG/2 ML VIAL IV PUSH ONE (10:00)
[2017-09-07] MEDS ORDERED: CHLORHEXIDINE GLUCONATE 2 % 1 PACK (2 CLOTHS)(extra cloths) TOPICAL PRN (10:00)
--- NOTE | 2017-09-07 10:00 | HHI.PR ---
Subjective Remarks Patient had worsening hypoxemia and shortness of breath overnight. Her oxygen was titrated to a 50% Venti mask I was not notified until this morning of the change in status. The patient had received additional nebulizer treatments which symptomatically seem to help but oxygen saturations were remaining between 90-92% on the 50% Ventimask. Respiratory effort had increased. The patient denies any chest pain, palpitations, nausea or vomiting. She has no cough or sputum production. The patient was transferred to the ICU for close monitoring of respiratory status. She has been given additional nebulizer treatments and high-dose steroids IV. ABG pending at this time. Current Medications Medications (Trade) Dose Ordered Sig/Mart Route Start Time Stop Time Status Last Admin (NS Flush) 2 ml UNSCH PRN IVF 09/05/17 13:30 Sodium Chloride 1,000 ml @ 84 mls/hr [id number] IV 09/05/17 16:30 09/07/17 05:11 (Duoneb Neb) 1 ampule Q6HR WHILE AWAKE NEB NEB 09/05/17 20:00 09/07/17 08:08 (Tylenol) 1,000 mg Q6HR PRN PO 09/05/17 20:00 (ZyrTEC) 10 mg DAILY PO 09/06/17 09:00 09/06/17 09:08 (Lasix) 20 mg DAILY PO 09/06/17 09:00 Future hold 09/06/17 09:10 (Lopressor) 50 mg HS PO 09/05/17 21:00 09/06/17 20:38 (Lopressor) 75 mg DAILY PO 09/06/17 09:00 09/06/17 09:08 (KCl) 10 meq DAILY PO 09/06/17 09:00 09/06/17 09:10 (Xarelto) 15 mg DAILY PO 09/06/17 09:00 09/06/17 09:08 (Tears Naturale Opth Soln) 1 drop TID EACH EYE 09/06/17 09:00 (Cardizem Cd) 180 mg DAILY PO 09/06/17 09:00 09/06/17 09:08 (SoluMEDROL INJ) 40 mg Q8HR IV PUSH 09/05/17 22:00 09/07/17 05:10 (Ultram) 50 mg Q8HR PRN PO 09/05/17 22:00 Patient Own Medication PT OWN MED:FYAVOLV 1MG-5... DAILY PO 09/06/17 14:00 09/06/17 14:27 Objective Vital Signs Date Time Temp Pulse Resp B/P (MAP) Pulse Ox O2 Delivery O2 Flow Rate FiO2 09/07/17 09:15 97.5 85 21 140/70 (93) 90 09/07/17 04:00 98.1 83 17 149/67 (94) 91 09/07/17 00:00 97.2 75 18 108/60 (76) 94 09/06/17 20:00 96.3 78 18 113/58 (76) 94 09/06/17 20:00 94 Nasal Cannula 4.00 09/06/17 20:00 78 09/06/17 19:50 92 Nasal Cannula 4.00 09/06/17 16:00 98.2 81 22 113/72 (86) 92 09/06/17 12:00 97.0 82 24 104/72 (83) 92 I/O 09/06/17 09/06/17 09/06/17 09/07/17 09/07/17 09/07/17 07:00 15:00 23:00 07:00 15:00 23:00 Intake Total 1194 ml 725 ml 955 ml 948 ml Balance 1194 ml 725 ml 955 ml 948 ml Intake Oral 240 ml 725 ml 0 ml IV Total 954 ml 955 ml 948 ml # Voids 3 2 2 # Bowel Movements 0 0 In general the patient is in mild respiratory distress at this time Cardiovascular: Regular rate and rhythm Lungs: Fibrotic rales bilaterally worse on the left than the right, no wheezes or rhonchi Abdomen: Soft, nontender nondistended with bowel sounds present Result Diagram: 09/06/17 0635 09/07/17 0751 Imaging Last 48 hours Impressions Chest X-Ray 09/07/17 0000 Signed Impressions: Service Date/Time: Thursday, September 07, 2017 08:25 - CONCLUSION: Diffuse interstitial disease. Much of this appears chronic. Some degree of superimposed edema cannot be excluded. Bg Silverman MD Chest X-Ray 09/05/17 1319 Signed Impressions: Service Date/Time: August 13:41 - CONCLUSION: Progression in bilateral chronic interstitial changes. No acute infiltrate. Shaggy Cantor Jr., MD Assessment and Plan Problem List: (1) Acute idiopathic pulmonary fibrosis ICD Codes: J84.112 - Idiopathic pulmonary fibrosis Status: Acute Plan: The patient is experiencing an acute exacerbation of pulmonary fibrosis. She has worsening hypoxemia. She is been transferred to the intensive care unit. I have increased steroids, started IV antibiotics and patient currently on a partial nonrebreather mask with adequate oxygenation. ABG reveals no CO2 retention. I've explained to the patient and her by telephone that this is a very serious situation. Prognosis is guarded. We'll continue to aggressively treat the patient. I have discussed the patient's desires if her respiratory status were to deteriorate further. The patient has a DNR and living will. She does not wish to be intubated or have any CPR or defibrillation. I have made her a no code. Patient states she would agree to BiPAP if needed. (2) Paroxysmal atrial fibrillation ICD Codes: I48.0 - Paroxysmal atrial fibrillation Status: Chronic Plan: The patient is currently in sinus rhythm. Continue with anticoagulation. (3) Abnormal LFTs ICD Codes: R94.5 - Abnormal results of liver function studies Status: Chronic Plan: Liver function studies are essentially stable with elevation. JAUN was negative. Hepatitis titers are negative. Ammonia level was within normal limits. Will follow. Consider further evaluation once patient is more stable. (4) Rheumatoid arthritis ICD Codes: M06.9 - Rheumatoid arthritis, unspecified Status: Chronic Plan: Patient has extensive joint deformities and disability. Tylenol and Tramadol prn. (5) Hypertension ICD Codes: I10 - Hypertension Status: Chronic Plan: Blood pressure under adequate control with current medications (6) Hyperlipidemia ICD Codes: E78.5 - Hyperlipidemia, unspecified Status: Chronic Plan: Statin discontinued due to abnormal LFT's Physician Attestation 60 minutes spent [id number] with the patient and on the unit conferring with the nurses in reference to patient's current condition, performing examination and communicating with patient's by telephone. Problem Qualifiers (1) Rheumatoid arthritis: (2) Hypertension: Qualified Codes: I10 - Essential (primary) hypertension (3) Hyperlipidemia: Qualified Codes: E78.2 - Mixed hyperlipidemia Riki Duarte MD Sep 07, 2017 10:00
[2017-09-07] MEDS ORDERED: Vancomycin Consult Pharmacy 1 EA OTHER SCH (10:15)
[2017-09-07] MEDS ORDERED: VANCOMYCIN INJ 1,000 MG in SODIUM CHLOR 0.9% 250 ML INJ 250 ML IV ONE (10:15)
[2017-09-07] MEDS ORDERED: AZITHROMYCIN INJ 500 MG in SODIUM CHLOR 0.9% 250 ML INJ 250 ML IV SCH (11:00)
[2017-09-07] MEDS: cefTRIAXone INJ 1,000 MG in SODIUM CHLORIDE 0.9% INJ 100 ML IV SCH (12:31)
[2017-09-07] MEDS: PANTOPRAZOLE SOD 40 MG DELAYED RELEASE TAB PO SCH (12:41)
[2017-09-07] MEDS: DEXT 5%-NACL 0.45% 1000 ML INJ 1,000 ML IV SCH (12:45)
[2017-09-07] MEDS: DOCUSATE SODIUM 100 MG CAP PO SCH ×2 (14:00→21:08)
--- NOTE | 2017-09-07 15:27 | HHI.PR ---
Subjective Remarks no acute distress on O2 by simple mask Objective Vital Signs Date Time Temp Pulse Resp B/P (MAP) Pulse Ox O2 Delivery O2 Flow Rate FiO2 09/07/17 14:01 97 Venturi Mask 6.00 09/07/17 14:00 78 60 113/57 (75) 98 09/07/17 13:00 80 24 116/57 (76) 97 09/07/17 12:00 82 19 132/58 (82) 92 09/07/17 11:36 96 Venturi Mask 6.00 50 09/07/17 11:19 97.5 09/07/17 11:00 84 31 97 09/07/17 10:00 84 23 98 09/07/17 09:30 96 Partial Rebreather 10.00 09/07/17 09:30 92 Partial Non-Rebreather 7.00 09/07/17 09:15 97.5 85 21 140/70 (93) 90 09/07/17 09:15 84 09/07/17 09:00 90 Venturi Mask 6.00 50 09/07/17 08:00 97.1 81 18 117/58 (77) 85 09/07/17 04:00 98.1 83 17 149/67 (94) 91 09/07/17 00:00 97.2 75 18 108/60 (76) 94 09/06/17 20:00 96.3 78 18 113/58 (76) 94 09/06/17 20:00 94 Nasal Cannula 4.00 09/06/17 20:00 78 09/06/17 19:50 92 Nasal Cannula 4.00 09/06/17 16:00 98.2 81 22 113/72 (86) 92 I/O 09/06/17 09/06/17 09/06/17 09/07/17 09/07/17 09/07/17 07:00 15:00 23:00 07:00 15:00 23:00 Intake Total 1194 ml 725 ml 955 ml 948 ml 606 ml Balance 1194 ml 725 ml 955 ml 948 ml 606 ml Intake Oral 240 ml 725 ml 0 ml 240 ml IV Total 954 ml 955 ml 948 ml 366 ml # Voids 3 2 2 3 # Bowel Movements 0 0 1 Result Diagram: 09/06/17 0635 09/07/17 0758 Objective Remarks GENERAL: SKIN: Warm and dry. HEAD: Atraumatic. Normocephalic. EYES: Pupils equal and round. No scleral icterus. No injection or drainage. ENT: No nasal bleeding or discharge. Mucous membranes pink and moist. NECK: Trachea midline. No JVD. CARDIOVASCULAR: Regular rate and rhythm. RESPIRATORY: No accessory muscle use. bilateral rhonchi. GASTROINTESTINAL: Abdomen soft, non-tender, nondistended. Hepatic and splenic margins not palpable. MUSCULOSKELETAL: Extremities without clubbing, cyanosis, or edema. No obvious deformities. NEUROLOGICAL: Awake and alert. No obvious cranial nerve deficits. Motor grossly within normal limits. Five out of 5 muscle strength in the arms and legs. Normal speech. PSYCHIATRIC: Appropriate mood and affect; insight and judgment normal. Assessment and Plan Assessment and Plan respiratory filure copd pulm fibrosis plan O2 NEEDED BRONCHODILATORS STEROIDS WILL FOLLOW Discharge Planning Vital Signs Date Time Temp Pulse Resp B/P (MAP) Pulse Ox O2 Delivery O2 Flow Rate FiO2 09/07/17 14:01 97 Venturi Mask 6.00 09/07/17 14:00 78 60 113/57 (75) 98 09/07/17 13:00 80 24 116/57 (76) 97 09/07/17 12:00 82 19 132/58 (82) 92 09/07/17 11:36 96 Venturi Mask 6.00 50 09/07/17 11:19 97.5 09/07/17 11:00 84 31 97 09/07/17 10:00 84 23 98 09/07/17 09:30 96 Partial Rebreather 10.00 09/07/17 09:30 92 Partial Non-Rebreather 7.00 09/07/17 09:15 97.5 85 21 140/70 (93) 90 09/07/17 09:15 84 09/07/17 09:00 90 Venturi Mask 6.00 50 09/07/17 08:00 97.1 81 18 117/58 (77) 85 09/07/17 04:00 98.1 83 17 149/67 (94) 91 09/07/17 00:00 97.2 75 18 108/60 (76) 94 09/06/17 20:00 96.3 78 18 113/58 (76) 94 09/06/17 20:00 94 Nasal Cannula 4.00 09/06/17 20:00 78 09/06/17 19:50 92 Nasal Cannula 4.00 09/06/17 16:00 98.2 81 22 113/72 (12) 92 Dayne Oscar MD Sep 07, 2017 15:27
[2017-09-07] MEDS: RESP: ALBUTEROL 2.5 MG/IPRATROPIUM 0.5 MG NEB (PRN) NEB (17:53)
[2017-09-07] MEDS: traMADol HCL 50 MG TAB PO PRN (19:12)
[2017-09-07] MEDS: METOPROLOL TARTRATE 50 MG TAB PO SCH (21:08)
[2017-09-08] VITALS (38 sets, daily range): BP systolic 104–188; BP diastolic 51–105; PULSE 63–89; RESP 21–43; TEMP 97.6–98.3; O2SAT 84–99
[2017-09-08] MEDS: CHLORHEXIDINE GLUCONATE 2 % 1 PACK (2 CLOTHS)(taper/protocol) TOPICAL SCH (03:08)
[2017-09-08] MEDS: RESP: ALBUTEROL 2.5 MG/IPRATROPIUM 0.5 MG NEB (SCH) NEB ×4 (03:54→22:25)
[2017-09-08] MEDS: methylPREDNISolone SOD SUCC 40 MG/1 ML VIAL IV PUSH SCH ×4 (05:49→23:50)
[2017-09-08 07:07] LABS: AUTOMATED NEUTROPHIL # 14.6 TH/MM3 (1.8-7.7); EOSINOPHIL % 0.2 % (0.0-4.0); HEMATOCRIT 32.6 % (35.0-46.0); HEMOGLOBIN 11.1 GM/DL (11.6-15.3); LYMPH % 1.7 % (9.0-44.0); LYMPHOCYTE # 0.3 TH/MM3 (1.0-4.8); MEAN CELL VOLUME 91.8 FL (80.0-100.0); MEAN CORPUSCULAR HEMOGLOBIN 31.4 PG (27.0-34.0); MEAN CORPUSCULAR HGB CONC 34.2 % (32.0-36.0); MEAN PLATELET VOLUME 7.6 FL (7.0-11.0); MONO % 2.4 % (0.0-8.0); MONOCYTE # 0.4 TH/MM3 (0-0.9); NEUT % 95.7 % (16.0-70.0); PLATELET COUNT 356 TH/MM3 (150-450); RED BLOOD COUNT 3.55 MIL/MM3 (4.00-5.30); RED CELL DISTRIBUTION WIDTH 13.5 % (11.6-17.2); WHITE BLOOD COUNT 15.3 TH/MM3 (4.0-11.0)
[2017-09-08 08:23] LABS: ALBUMIN 2.2 GM/DL (3.4-5.0); BICARBONATE 23.1 MEQ/L (21.0-32.0); CALCIUM 7.3 MG/DL (8.5-10.1); CALCIUM-PROTEIN CORRECTED 7.8 MG/DL (8.5-10.1); CREATININE 1.1 MG/DL (0.50-1.00); TOTAL BILIRUBIN ADULT 0.7 MG/DL (0.2-1.0); TOTAL PROTEIN 6.2 GM/DL (6.4-8.2)
[2017-09-08] MEDS: ARTIFICIAL TEARS OPTH SOLN 15 ML BTL EACH EYE SCH ×3 (09:00→18:00)
--- NOTE | 2017-09-08 09:26 | HHI.PR ---
Subjective Remarks Patient reports that she is comfortable with high flow oxygen at FiO2 70% and 25 L/m. Blood gas this morning done on partial nonrebreather revealed oxygen saturation <90%. Current saturation 99%. No cough or sputum production. Ate breakfast well this morning. Denies pain. Has not had a bowel movement but feels like she may have one today. Urine output has been adequate. Current Medications Medications (Trade) Dose Ordered Sig/Mart Route Start Time Stop Time Status Last Admin (NS Flush) 2 ml UNSCH PRN IVF 09/05/17 13:30 (Tylenol) 1,000 mg Q6HR PRN PO 09/05/17 20:00 (Lasix) 20 mg DAILY PO 09/06/17 09:00 Future hold 09/06/17 09:10 (Lopressor) 50 mg HS PO 09/05/17 21:00 09/07/17 21:08 (Lopressor) 75 mg DAILY PO 09/06/17 09:00 09/07/17 09:39 (KCl) 10 meq DAILY PO 09/06/17 09:00 09/07/17 09:38 (Xarelto) 15 mg DAILY PO 09/06/17 09:00 09/07/17 09:39 (Tears Naturale Opth Soln) 1 drop TID EACH EYE 09/06/17 09:00 (Cardizem Cd) 180 mg DAILY PO 09/06/17 09:00 09/07/17 09:38 (Ultram) 50 mg Q8HR PRN PO 09/05/17 22:00 09/07/17 19:12 Patient Own Medication PT OWN MED:FYAVOLV 1MG-5... DAILY PO 09/06/17 14:00 09/07/17 09:38 (SoluMEDROL INJ) 60 mg Q6HR IV PUSH 09/07/17 12:00 09/08/17 05:49 Ceftriaxone Sodium 1000 mg/ Sodium Chloride 100 ml @ 200 mls/hr Q24H IV 09/07/17 10:00 09/07/17 12:31 Dextrose/Sodium Chloride 1,000 ml @ 42 mls/hr [id number] IV 09/07/17 09:45 09/07/17 12:45 Miscellaneous Information Patient in critical care unit? Ass... Q361D .XX 09/07/17 10:00 09/07/17 10:00 (Chlorhexidine 2% Cloth) 3 pack DAILY@04 TOPICAL 09/08/17 04:00 09/12/17 04:01 09/08/17 03:08 (Chlorhexidine 2% Cloth) 3 pack UNSCH PRN TOPICAL 09/07/17 10:00 09/12/17 09:51 (Protonix) 40 mg DAILY PO 09/07/17 10:00 09/07/17 12:41 (Duoneb Neb) 1 ampule Q6HR NEB NEB 09/07/17 10:00 09/08/17 03:54 (Duoneb Neb) 1 ampule Q2HR NEB PRN NEB 09/07/17 10:00 09/07/17 17:53 Pharmacy Profile Note 0 ml @ 0 mls/hr UNSCH OTHER 09/07/17 10:15 Vancomycin HCl 1000 mg/Sodium Chloride 250 ml @ 250 mls/hr Q36H IV 09/09/17 01:00 Miscellaneous Information SPECIFIC LAB TO BE MELBA... ONCE ONCE .XX 09/12/17 00:45 09/12/17 00:46 (Colace) 100 mg BID PO 09/07/17 14:00 09/07/17 21:08 Objective Vital Signs Date Time Temp Pulse Resp B/P (MAP) Pulse Ox O2 Delivery O2 Flow Rate FiO2 09/08/17 08:23 98 High Flow Nasal Cannula 25.00 70 09/08/17 08:00 78 09/08/17 08:00 78 25 120/62 (81) 97 09/08/17 07:01 78 26 116/59 (78) 97 09/08/17 07:00 Partial Non-Rebreather 10.00 50 09/08/17 06:25 Partial Rebreather 10.00 09/08/17 06:17 90 Partial Non-Rebreather 09/08/17 06:00 80 26 118/58 (78) 89 09/08/17 06:00 80 09/08/17 05:00 78 26 122/61 (81) 94 09/08/17 04:01 97.7 78 26 131/64 (86) 94 09/08/17 04:00 79 09/08/17 03:00 21 127/64 (85) 97 09/08/17 02:00 80 09/08/17 02:00 28 137/72 (93) 88 09/08/17 01:00 31 117/61 (79) 97 09/08/17 00:00 63 09/08/17 00:00 97.8 78 21 114/57 (76) 97 09/07/17 23:00 78 23 116/61 (79) 99 09/07/17 22:00 79 09/07/17 22:00 80 20 120/61 (80) 94 09/07/17 21:30 97 6.00 09/07/17 21:00 23 113/54 (73) 96 09/07/17 20:56 97 Nasal Cannula 5.00 09/07/17 20:45 26 09/07/17 20:30 85 6.00 09/07/17 20:00 98.6 76 26 103/50 (67) 96 09/07/17 20:00 81 09/07/17 19:00 78 22 114/52 (72) 99 09/07/17 19:00 95 Nasal Cannula 4.00 09/07/17 18:00 80 37 132/71 (91) 100 09/07/17 17:00 80 26 122/61 (81) 94 09/07/17 16:00 78 22 114/60 (78) 95 09/07/17 15:27 98.2 09/07/17 14:01 97 Venturi Mask 6.00 09/07/17 14:00 78 60 113/57 (75) 98 09/07/17 13:00 80 24 116/57 (76) 97 09/07/17 12:00 82 19 132/58 (82) 92 09/07/17 11:36 96 Venturi Mask 6.00 50 09/07/17 11:19 97.5 09/07/17 11:00 84 31 97 09/07/17 10:00 84 23 98 09/07/17 09:30 96 Partial Rebreather 10.00 09/07/17 09:30 92 Partial Non-Rebreather 7.00 I/O 09/07/17 09/07/17 09/07/17 09/08/17 09/08/17 09/08/17 07:00 15:00 23:00 07:00 15:00 23:00 Intake Total 948 ml 606 ml 470 ml 1056 ml Output Total 200 ml Balance 948 ml 606 ml 470 ml 856 ml Intake Oral 0 ml 240 ml 120 ml 60 ml IV Total 948 ml 366 ml 350 ml 996 ml Output Urine Total 200 ml # Voids 2 3 5 # Bowel Movements 1 2 1 Cardiovascular: Regular rhythm with systolic murmur Lungs: Fibrotic rales bilaterally, no rales or rhonchi, good air exchange Abdomen: Soft, mildly distended, nontender with bowel sounds present Extremities: No edema or calf tenderness. Result Diagram: 09/08/1754809/08/17548 Assessment and Plan Problem List: (1) Acute idiopathic pulmonary fibrosis ICD Codes: J84.112 - Idiopathic pulmonary fibrosis Status: Acute Plan: Continue with current dosage of steroids. Will try to wean FiO2 keeping oxygen saturation >92%. Continue with IV antibiotics and nebulizer treatments. (2) Paroxysmal atrial fibrillation ICD Codes: I48.0 - Paroxysmal atrial fibrillation Status: Chronic Plan: The patient is currently in sinus rhythm. Continue with anticoagulation. (3) Abnormal LFTs ICD Codes: R94.5 - Abnormal results of liver function studies Status: Chronic Plan: LFTs are essentially stable. Will follow. Further workup once patient is medically stable. (4) Rheumatoid arthritis ICD Codes: M06.9 - Rheumatoid arthritis, unspecified Status: Chronic Plan: Patient has extensive joint deformities and disability. Tylenol and Tramadol prn. (5) Hypertension ICD Codes: I10 - Hypertension Status: Chronic Plan: Blood pressure under adequate control with current medications (6) Hyperlipidemia ICD Codes: E78.5 - Hyperlipidemia, unspecified Status: Chronic Plan: Statin discontinued due to abnormal LFT's (7) Bacteremia ICD Codes: R78.81 - Bacteremia Status: Acute Plan: Blood culture was positive for gram-positive cocci. Patient receiving vancomycin IV. Awaiting final culture results with ID and OLAYINKA's. Currently afebrile Problem Qualifiers (1) Rheumatoid arthritis: (2) Hypertension: Qualified Codes: I10 - Essential (primary) hypertension (3) Hyperlipidemia: Qualified Codes: E78.2 - Mixed hyperlipidemia Riki Duarte MD Sep 08, 2017 09:26
[2017-09-08] MEDS: DEXT 5%-NACL 0.45% 1000 ML INJ 1,000 ML IV SCH (09:34)
[2017-09-08] MEDS: cefTRIAXone INJ 1,000 MG in SODIUM CHLORIDE 0.9% INJ 100 ML IV SCH (10:03)
[2017-09-08] MEDS: DOCUSATE SODIUM 100 MG CAP PO SCH ×2 (10:03→20:38)
[2017-09-08] MEDS: POTASSIUM CHLORIDE 20 MEQ CONTROLLED RELEASE TAB PO SCH (10:03)
[2017-09-08] MEDS: DILTIAZEM-CD 180 MG CAP ER PO SCH (10:03)
[2017-09-08] MEDS: FUROSEMIDE 20 MG TAB PO SCH (10:04)
[2017-09-08] MEDS: PANTOPRAZOLE SOD 40 MG DELAYED RELEASE TAB PO SCH (10:04)
[2017-09-08] MEDS: RIVAROXABAN 15 MG TAB PO SCH (10:20)
[2017-09-08] MEDS: METOPROLOL TARTRATE 25 MG TAB PO SCH (10:20)
[2017-09-08] MEDS: ACETAMINOPHEN 500 MG CPLT PO PRN (10:21)
[2017-09-08] MEDS: traMADol HCL 50 MG TAB PO PRN (10:26)
[2017-09-08] MEDS: [UNRECOGNIZED DRUG - OTHER] PO SCH (10:32)
--- NOTE | 2017-09-08 11:41 | HHI.PR ---
Subjective Remarks no acute distress on O2 by simple mask Objective Vital Signs Date Time Temp Pulse Resp B/P (MAP) Pulse Ox O2 Delivery O2 Flow Rate FiO2 09/08/17 10:01 80 29 113/52 (72) 97 09/08/17 10:00 71 09/08/17 09:34 96 High Flow Nasal Cannula 25.00 50 09/08/17 09:26 99 High Flow Nasal Cannula 55 09/08/17 09:01 97.7 82 35 120/75 (90) 97 09/08/17 08:23 98 High Flow Nasal Cannula 25.00 70 09/08/17 08:00 78 09/08/17 08:00 78 25 120/62 (81) 97 09/08/17 07:01 78 26 116/59 (78) 97 09/08/17 07:00 Partial Non-Rebreather 10.00 50 09/08/17 06:25 Partial Rebreather 10.00 09/08/17 06:17 90 Partial Non-Rebreather 09/08/17 06:00 80 26 118/58 (78) 89 09/08/17 06:00 80 09/08/17 05:00 78 26 122/61 (81) 94 09/08/17 04:01 97.7 78 26 131/64 (86) 94 09/08/17 04:00 79 09/08/17 03:00 21 127/64 (85) 97 09/08/17 02:00 80 09/08/17 02:00 28 137/72 (93) 88 09/08/17 01:00 31 117/61 (79) 97 09/08/17 00:00 63 09/08/17 00:00 97.8 78 21 114/57 (76) 97 09/07/17 23:00 78 23 116/61 (79) 99 09/07/17 22:00 79 09/07/17 22:00 80 20 120/61 (80) 94 09/07/17 21:30 97 6.00 09/07/17 21:00 23 113/54 (73) 96 09/07/17 20:56 97 Nasal Cannula 5.00 09/07/17 20:45 26 09/07/17 20:30 85 6.00 09/07/17 20:00 98.6 76 26 103/50 (67) 96 09/07/17 20:00 81 09/07/17 19:00 78 22 114/52 (72) 99 09/07/17 19:00 95 Nasal Cannula 4.00 09/07/17 18:00 80 37 132/71 (91) 100 09/07/17 17:00 80 26 122/61 (81) 94 09/07/17 16:00 78 22 114/60 (78) 95 09/07/17 15:27 98.2 09/07/17 14:01 97 Venturi Mask 6.00 09/07/17 14:00 78 60 113/57 (75) 98 09/07/17 13:00 80 24 116/57 (76) 97 09/07/17 12:00 82 19 132/58 (82) 92 I/O 09/07/17 09/07/17 09/07/17 09/08/17 09/08/17 09/08/17 06:59 14:59 22:59 06:59 14:59 22:59 Intake Total 948 ml 606 ml 470 ml 1056 ml 240 ml Output Total 200 ml 1 ml Balance 948 ml 606 ml 470 ml 856 ml 239 ml Intake Oral 0 ml 240 ml 120 ml 60 ml 240 ml IV Total 948 ml 366 ml 350 ml 996 ml Output Urine Total 200 ml Stool Total 1 ml # Voids 2 3 5 # Bowel Movements 1 2 1 Result Diagram: 09/08/1754809/08/17548 Objective Remarks GENERAL: SKIN: Warm and dry. HEAD: Atraumatic. Normocephalic. EYES: Pupils equal and round. No scleral icterus. No injection or drainage. ENT: No nasal bleeding or discharge. Mucous membranes pink and moist. NECK: Trachea midline. No JVD. CARDIOVASCULAR: Regular rate and rhythm. RESPIRATORY: No accessory muscle use. bilateral rhonchi. GASTROINTESTINAL: Abdomen soft, non-tender, nondistended. Hepatic and splenic margins not palpable. MUSCULOSKELETAL: Extremities without clubbing, cyanosis, or edema. No obvious deformities. NEUROLOGICAL: Awake and alert. No obvious cranial nerve deficits. Motor grossly within normal limits. Five out of 5 muscle strength in the arms and legs. Normal speech. PSYCHIATRIC: Appropriate mood and affect; insight and judgment normal. Assessment and Plan Assessment and Plan respiratory filure copd pulm fibrosis plan O2 NEEDED BRONCHODILATORS STEROIDS WILL FOLLOW Dayne Oscar MD Sep 08, 2017 11:41
[2017-09-08] MEDS: RESP: ALBUTEROL 2.5 MG/IPRATROPIUM 0.5 MG NEB (PRN) NEB (19:59)
[2017-09-08] MEDS: METOPROLOL TARTRATE 50 MG TAB PO SCH (20:38)
[2017-09-09] VITALS (37 sets, daily range): BP systolic 109–144; BP diastolic 55–70; PULSE 68–89; RESP 21–33; TEMP 97.7–98.1; O2SAT 88–100
[2017-09-09] MEDS: VANCOMYCIN 1,000 MG/NS 250 ML IV SCH ×2 (00:52)
[2017-09-09] MEDS: RESP: ALBUTEROL 2.5 MG/IPRATROPIUM 0.5 MG NEB (SCH) NEB ×4 (03:10→21:29)
[2017-09-09] MEDS: CHLORHEXIDINE GLUCONATE 2 % 1 PACK (2 CLOTHS)(taper/protocol) TOPICAL SCH (04:00)
[2017-09-09 04:49] LABS: BASOPHIL % 0.1 % (0.0-2.0); HEMATOCRIT 33.5 % (35.0-46.0); HEMOGLOBIN 10.9 GM/DL (11.6-15.3); LYMPH % 1.5 % (9.0-44.0); LYMPHOCYTE # 0.2 TH/MM3 (1.0-4.8); MEAN CELL VOLUME 91.1 FL (80.0-100.0); MEAN CORPUSCULAR HEMOGLOBIN 29.8 PG (27.0-34.0); MEAN CORPUSCULAR HGB CONC 32.7 % (32.0-36.0); MEAN PLATELET VOLUME 7.6 FL (7.0-11.0); MONO % 3.8 % (0.0-8.0); MONOCYTE # 0.5 TH/MM3 (0-0.9); NEUT % 94.6 % (16.0-70.0); PLATELET COUNT 351 TH/MM3 (150-450); RED BLOOD COUNT 3.68 MIL/MM3 (4.00-5.30); RED CELL DISTRIBUTION WIDTH 13.1 % (11.6-17.2); WHITE BLOOD COUNT 12.7 TH/MM3 (4.0-11.0)
[2017-09-09 05:16] LABS: BICARBONATE 23.1 MEQ/L (21.0-32.0); CALCIUM 7.1 MG/DL (8.5-10.1); MAGNESIUM 2.1 MG/DL (1.5-2.5)
[2017-09-09 05:35] LABS: CALCIUM-PROTEIN CORRECTED 7.8 MG/DL (8.5-10.1); TOTAL PROTEIN 5.7 GM/DL (6.4-8.2)
[2017-09-09] MEDS: methylPREDNISolone SOD SUCC 40 MG/1 ML VIAL IV PUSH SCH ×3 (05:47→17:34)
--- NOTE | 2017-09-09 08:27 | HHI.PR ---
Subjective Remarks The patient remains on high flow oxygen. FiO2 was increased this morning due to decreased oxygen saturations. She reports that she feels weak but denies any shortness of breath with the current oxygen settings. Oral intake has been fair. Denies chest pain, palpitations, nausea or vomiting. patient monitor reveals sinus rhythm. Current Medications Medications (Trade) Dose Ordered Sig/Mart Route Start Time Stop Time Status Last Admin (NS Flush) 2 ml UNSCH PRN IVF 09/05/17 13:30 (Tylenol) 1,000 mg Q6HR PRN PO 09/05/17 20:00 09/08/17 10:21 (Lasix) 20 mg DAILY PO 09/06/17 09:00 Future hold 09/08/17 10:04 (Lopressor) 50 mg HS PO 09/05/17 21:00 09/08/17 20:38 (Lopressor) 75 mg DAILY PO 09/06/17 09:00 09/08/17 10:20 (KCl) 10 meq DAILY PO 09/06/17 09:00 09/08/17 10:03 (Xarelto) 15 mg DAILY PO 09/06/17 09:00 09/08/17 10:20 (Cardizem Cd) 180 mg DAILY PO 09/06/17 09:00 09/08/17 10:03 (Ultram) 50 mg Q8HR PRN PO 09/05/17 22:00 09/08/17 10:26 Patient Own Medication PT OWN MED:FYAVOLV 1MG-5... DAILY PO 09/06/17 14:00 09/08/17 10:32 (SoluMEDROL INJ) 60 mg Q6HR IV PUSH 09/07/17 12:00 09/09/17 05:47 Ceftriaxone Sodium 1000 mg/ Sodium Chloride 100 ml @ 200 mls/hr Q24H IV 09/07/17 10:00 09/08/17 10:03 Dextrose/Sodium Chloride 1,000 ml @ 42 mls/hr [id number] IV 09/07/17 09:45 09/07/17 12:45 Miscellaneous Information Patient in critical care unit? Ass... Q361D .XX 09/07/17 10:00 09/07/17 10:00 (Chlorhexidine 2% Cloth) 3 pack DAILY@04 TOPICAL 09/08/17 04:00 3/1/18 04:01 09/09/17 04:00 (Chlorhexidine 2% Cloth) 3 pack UNSCH PRN TOPICAL 09/07/17 10:00 09/12/17 09:51 (Protonix) 40 mg DAILY PO 09/07/17 10:00 09/08/17 10:04 (Duoneb Neb) 1 ampule Q6HR NEB NEB 09/07/17 10:00 09/09/17 03:10 (Duoneb Neb) 1 ampule Q2HR NEB PRN NEB 09/07/17 10:00 09/08/17 19:59 Pharmacy Profile Note 0 ml @ 0 mls/hr UNSCH OTHER 09/07/17 10:15 Vancomycin HCl 1000 mg/Sodium Chloride 250 ml @ 250 mls/hr Q36H IV 09/09/17 01:00 09/09/17 00:52 Miscellaneous Information SPECIFIC LAB TO BE MELBA... ONCE ONCE .XX 09/12/17 00:45 09/12/17 00:46 (Colace) 100 mg BID PO 09/07/17 14:00 09/08/17 20:38 (Tears Naturale Opth Soln) 1 drop TID EACH EYE 09/09/17 09:00 (Oscal) 500 mg BID PO 09/09/17 09:00 Objective Vital Signs Date Time Temp Pulse Resp B/P (MAP) Pulse Ox O2 Delivery O2 Flow Rate FiO2 09/09/17 08:05 93 High Flow Nasal Cannula 30.00 60 09/09/17 08:00 71 09/09/17 07:41 95 High Flow Nasal Cannula 20.00 50 09/09/17 07:01 97.9 78 24 141/65 (90) 92 09/09/17 07:00 Nasal Cannula 20.00 50 09/09/17 06:01 76 25 128/65 (86) 93 09/09/17 06:00 77 09/09/17 05:01 78 25 133/69 (90) 93 09/09/17 04:01 97.7 78 21 130/70 (90) 91 09/09/17 04:00 78 09/09/17 03:01 76 28 133/64 (87) 95 09/09/17 02:01 74 25 128/62 (84) 95 2/26/18 02:00 75 2/ 01:01 74 25 127/69 (88) 92 09/09/17 00:01 97.8 74 24 109/55 (73) 96 18 00:00 74 18 23:01 76 23 119/61 (80) 87 /18 23:00 74 2//18 22:01 74 24 125/59 (81) 97 18 21:01 74 25 113/56 (75) 95 09/08/17 20:07 95 High Flow Nasal Cannula 20.00 50 09/08/17 20:01 97.7 78 24 148/66 (93) 88 09/08/17 20:00 75 09/08/17 19:01 76 30 120/59 (79) 84 09/08/17 19:00 Partial Non-Rebreather 20.00 40 09/08/17 18:01 98.3 74 22 119/56 (77) 90 09/08/17 18:00 89 09/08/17 17:01 74 24 104/51 (68) 96 09/08/17 16:01 76 26 118/54 (75) 88 09/08/17 16:00 71 09/08/17 15:35 96 High Flow Nasal Cannula 20.00 40 18 15:33 74 22 113/61 (78) 97 18 15:33 74 22 113/61 (78) 97 / 15:01 72 25 142/78 (99) 99 09/08/17 14:00 69 09/08/17 13:01 97.9 76 28 124/66 (85) 96 09/08/17 12:01 78 26 121/61 (81) 95 18 12:00 78 27 121/61 (81) 96 09/08/18 12:00 87 09/08/17 11:49 96 High Flow Nasal Cannula 20.00 50 18 11:21 19 18 11:21 19 //18 11:01 78 43 113/55 (74) 97 18 11:01 78 43 113/55 (74) 97 09/08/17 10:01 80 29 113/52 (72) 97 09/08/18 10:01 80 29 113/52 (72) 97 2/25/18 10:00 71 09/08/17 09:34 96 High Flow Nasal Cannula 25.00 50 09/08/17 09:26 99 High Flow Nasal Cannula 55 09/08/17 09:01 97.7 82 35 120/75 (90) 97 I/O 09/08/17 09/08/17 09/08/17 09/09/17 09/09/17 09/09/17 07:00 15:00 23:00 07:00 15:00 23:00 Intake Total 1056 ml 240 ml 360 ml 1578 ml Output Total 200 ml 1 ml 600 ml Balance 856 ml 239 ml 360 ml 978 ml Intake Oral 60 ml 240 ml 360 ml 60 ml IV Total 996 ml 1518 ml Output Urine Total 200 ml 600 ml Stool Total 1 ml # Voids 5 # Bowel Movements 1 0 Cardiovascular: Regular rate and rhythm Lungs: Fibrotic rales bilaterally but no wheezes, rhonchi Abdomen, soft, nontender, mildly distended with bowel sounds present. No masses. Extremities reveal no edema or calf tenderness. Result Diagram: 09/09/1743209/09/17432 Assessment and Plan Problem List: (1) Acute idiopathic pulmonary fibrosis ICD Codes: J84.112 - Idiopathic pulmonary fibrosis Status: Acute Plan: The patient will continue with high flow oxygen, steroids and antibiotics. Continue with nebulizer treatments. (2) Paroxysmal atrial fibrillation ICD Codes: I48.0 - Paroxysmal atrial fibrillation Status: Chronic Plan: The patient is currently in sinus rhythm. Continue with anticoagulation. (3) Abnormal LFTs ICD Codes: R94.5 - Abnormal results of liver function studies Status: Chronic Plan: LFTs are essentially stable. Will follow. Further workup once patient is medically stable. (4) Rheumatoid arthritis ICD Codes: M06.9 - Rheumatoid arthritis, unspecified Status: Chronic Plan: Patient has extensive joint deformities and disability. Tylenol and Tramadol prn. (5) Hypertension ICD Codes: I10 - Hypertension Status: Chronic Plan: Blood pressure under adequate control with current medications (6) Hyperlipidemia ICD Codes: E78.5 - Hyperlipidemia, unspecified Status: Chronic Plan: Statin discontinued due to abnormal LFT's (7) Bacteremia ICD Codes: R78.81 - Bacteremia Status: Acute Plan: Blood culture positive for staph species coagulase-negative. Awaiting final ID and OLAYINKA's. Continue with vancomycin for now. (8) Hypocalcemia ICD Codes: E83.51 - Hypocalcemia Status: Acute Plan: Patient have started calcium carbonate orally. Will follow calcium level. (9) At high risk for deep venous thrombosis ICD Codes: Z91.89 - Other specified personal risk factors, not elsewhere classified Status: Acute Plan: Patient is currently receiving Xarelto Problem Qualifiers (1) Rheumatoid arthritis: (2) Hypertension: Qualified Codes: I10 - Essential (primary) hypertension (3) Hyperlipidemia: Qualified Codes: E78.2 - Mixed hyperlipidemia Riki Duarte MD Sep 09, 2017 08:27
[2017-09-09] MEDS: DILTIAZEM-CD 180 MG CAP ER PO SCH (09:57)
[2017-09-09] MEDS: cefTRIAXone INJ 1,000 MG in SODIUM CHLORIDE 0.9% INJ 100 ML IV SCH (09:57)
[2017-09-09] MEDS: DOCUSATE SODIUM 100 MG CAP PO SCH ×2 (09:58→20:34)
[2017-09-09] MEDS: CALCIUM CARBONATE 1.25 GM (CA 500 MG) TAB PO SCH ×2 (09:58→20:35)
[2017-09-09] MEDS: METOPROLOL TARTRATE 25 MG TAB PO SCH (09:58)
[2017-09-09] MEDS: PANTOPRAZOLE SOD 40 MG DELAYED RELEASE TAB PO SCH (09:58)
[2017-09-09] MEDS: POTASSIUM CHLORIDE 20 MEQ CONTROLLED RELEASE TAB PO SCH (09:58)
[2017-09-09] MEDS: FUROSEMIDE 20 MG TAB PO SCH (09:58)
[2017-09-09] MEDS: RIVAROXABAN 15 MG TAB PO SCH (09:59)
[2017-09-09] MEDS: [UNRECOGNIZED DRUG - OTHER] PO SCH (10:02)
[2017-09-09] MEDS: ARTIFICIAL TEARS OPTH SOLN 15 ML BTL EACH EYE SCH ×3 (11:20→17:34)
--- NOTE | 2017-09-09 15:58 | HHI.PR ---
Subjective Remarks no SOB on O2 by simple mask Objective Vital Signs Date Time Temp Pulse Resp B/P (MAP) Pulse Ox O2 Delivery O2 Flow Rate FiO2 09/09/17 15:49 98 High Flow Nasal Cannula 20.00 50 09/09/17 14:00 75 09/09/17 14:00 78 26 135/67 (89) 98 09/09/17 13:56 78 27 135/67 (89) 98 09/09/17 13:05 78 27 130/66 (87) 98 09/09/17 12:01 98.1 78 24 128/67 (87) 98 09/09/17 12:00 68 09/09/17 11:01 80 26 127/62 (83) 97 09/09/17 10:01 80 28 123/66 (85) 96 09/09/17 10:00 89 09/09/17 09:46 96 High Flow Nasal Cannula 25.00 60 09/09/17 09:01 86 33 141/70 (93) 94 09/09/17 08:05 93 High Flow Nasal Cannula 30.00 60 09/09/17 08:01 78 23 136/69 (91) 90 09/09/17 08:00 71 09/09/17 07:41 95 High Flow Nasal Cannula 20.00 50 09/09/17 07:01 97.9 78 24 141/65 (90) 92 09/09/17 07:00 Nasal Cannula 20.00 50 09/09/17 06:01 76 25 128/65 (86) 93 09/09/17 06:00 77 09/09/17 05:01 78 25 133/69 (90) 93 09/09/17 04:01 97.7 78 21 130/70 (90) 91 09/09/17 04:00 78 09/09/17 03:01 76 28 133/64 (87) 95 09/09/17 02:01 74 25 128/62 (84) 95 09/09/17 02:00 75 09/09/17 01:01 74 25 127/69 (88) 92 09/09/17 00:01 97.8 74 24 109/55 (73) 96 09/09/17 00:00 74 09/08/17 23:01 76 23 119/61 (80) 87 09/08/17 23:00 74 09/08/17 22:01 74 24 125/59 (81) 97 09/08/17 21:01 74 25 113/56 (75) 95 09/08/17 20:07 95 High Flow Nasal Cannula 20.00 50 09/08/17 20:01 97.7 78 24 148/66 (93) 88 09/08/17 20:00 75 09/08/17 19:01 76 30 120/59 (79) 84 09/08/17 19:00 Partial Non-Rebreather 20.00 40 09/08/17 18:01 98.3 74 22 119/56 (77) 90 09/08/17 18:00 89 09/08/17 17:01 74 24 104/51 (68) 96 09/08/17 16:01 76 26 118/54 (75) 88 09/08/17 16:00 71 I/O 09/08/17 09/08/17 09/08/17 09/09/17 09/09/17 09/09/17 07:00 15:00 23:00 07:00 15:00 23:00 Intake Total 1056 ml 240 ml 360 ml 1578 ml 120 ml Output Total 200 ml 1 ml 600 ml 1 ml Balance 856 ml 239 ml 360 ml 978 ml 119 ml Intake Oral 60 ml 240 ml 360 ml 60 ml 120 ml IV Total 996 ml 1518 ml Output Urine Total 200 ml 600 ml Stool Total 1 ml 1 ml # Voids 5 # Bowel Movements 1 0 1 Result Diagram: 09/09/1743209/09/17432 Objective Remarks GENERAL: SKIN: Warm and dry. HEAD: Atraumatic. Normocephalic. EYES: Pupils equal and round. No scleral icterus. No injection or drainage. ENT: No nasal bleeding or discharge. Mucous membranes pink and moist. NECK: Trachea midline. No JVD. CARDIOVASCULAR: Regular rate and rhythm. RESPIRATORY: No accessory muscle use. bilateral rhonchi. GASTROINTESTINAL: Abdomen soft, non-tender, nondistended. Hepatic and splenic margins not palpable. MUSCULOSKELETAL: Extremities without clubbing, cyanosis, or edema. No obvious deformities. NEUROLOGICAL: Awake and alert. No obvious cranial nerve deficits. Motor grossly within normal limits. Five out of 5 muscle strength in the arms and legs. Normal speech. PSYCHIATRIC: Appropriate mood and affect; insight and judgment normal. Assessment and Plan Assessment and Plan respiratory filure copd pulm fibrosis plan O2 NEEDED BRONCHODILATORS STEROIDS INCREASE ACTIVITY Dayne Oscar MD Sep 09, 2017 15:58
[2017-09-09] MEDS: METOPROLOL TARTRATE 50 MG TAB PO SCH (20:35)
[2017-09-09] MEDS: ACETAMINOPHEN 500 MG CPLT PO PRN (20:38)
[2017-09-10] VITALS (33 sets, daily range): BP systolic 118–156; BP diastolic 53–74; PULSE 70–80; RESP 20–31; TEMP 97.7–98.8; O2SAT 89–98
[2017-09-10] MEDS: methylPREDNISolone SOD SUCC 40 MG/1 ML VIAL IV PUSH SCH ×4 (00:31→18:57)
[2017-09-10] MEDS: SODIUM CHLORIDE 0.9% FLUSH 10 ML FLUSH IVF PRN ×2 (00:32→07:18)
[2017-09-10] MEDS: CHLORHEXIDINE GLUCONATE 2 % 1 PACK (2 CLOTHS)(taper/protocol) TOPICAL SCH (04:00)
[2017-09-10] MEDS: RESP: ALBUTEROL 2.5 MG/IPRATROPIUM 0.5 MG NEB (SCH) NEB ×4 (04:19→21:18)
--- NOTE | 2017-09-10 08:21 | HHI.PR ---
Subjective Remarks Patient's overall stable. She remains on high flow oxygen. Oxygen saturations range between 92-95%. She denies any shortness of breath. The patient is taking by mouth adequately. She had a bowel movement yesterday. Denies any chest pain, palpitations, nausea or vomiting. Patient was evaluated by speech therapy and passed her swallow eval. It was recommended she receive her medications with applesauce. Current Medications Medications (Trade) Dose Ordered Sig/Mart Route Start Time Stop Time Status Last Admin (NS Flush) 2 ml UNSCH PRN IVF 09/05/17 13:30 09/10/17 07:18 (Tylenol) 1,000 mg Q6HR PRN PO 09/05/17 20:00 09/09/17 20:38 (Lasix) 20 mg DAILY PO 09/06/17 09:00 Future hold 09/09/17 09:58 (Lopressor) 50 mg HS PO 09/05/17 21:00 09/09/17 20:35 (Lopressor) 75 mg DAILY PO 09/06/17 09:00 09/09/17 09:58 (KCl) 10 meq DAILY PO 09/06/17 09:00 09/09/17 09:58 (Xarelto) 15 mg DAILY PO 09/06/17 09:00 09/09/17 09:59 (Cardizem Cd) 180 mg DAILY PO 09/06/17 09:00 09/09/17 09:57 (Ultram) 50 mg Q8HR PRN PO 09/05/17 22:00 09/08/17 10:26 Patient Own Medication PT OWN MED:FYAVOLV 1MG-5... DAILY PO 09/06/17 14:00 09/09/17 10:02 (SoluMEDROL INJ) 60 mg Q6HR IV PUSH 09/07/17 12:00 09/10/17 07:18 Ceftriaxone Sodium 1000 mg/ Sodium Chloride 100 ml @ 200 mls/hr Q24H IV 09/07/17 10:00 09/09/17 09:57 Miscellaneous Information Patient in critical care unit? Ass... Q361D .XX 09/07/17 10:00 09/07/17 10:00 (Chlorhexidine 2% Cloth) 3 pack DAILY@04 TOPICAL 09/08/17 04:00 09/12/17 04:01 09/10/17 04:00 (Chlorhexidine 2% Cloth) 3 pack UNSCH PRN TOPICAL 09/07/17 10:00 09/12/17 09:51 (Protonix) 40 mg DAILY PO 09/07/17 10:00 09/09/17 09:58 (Duoneb Neb) 1 ampule Q6HR NEB NEB 09/07/17 10:00 09/10/17 04:19 (Duoneb Neb) 1 ampule Q2HR NEB PRN NEB 09/07/17 10:00 09/08/17 19:59 Pharmacy Profile Note 0 ml @ 0 mls/hr UNSCH OTHER 09/07/17 10:15 Vancomycin HCl 1000 mg/Sodium Chloride 250 ml @ 250 mls/hr Q36H IV 09/09/17 01:00 09/09/17 00:52 Miscellaneous Information SPECIFIC LAB TO BE MELBA... ONCE ONCE .XX 09/12/17 00:45 09/12/17 00:46 (Colace) 100 mg BID PO 09/07/17 14:00 09/09/17 09:58 (Tears Naturale Opth Soln) 1 drop TID EACH EYE 09/09/17 09:00 09/09/17 17:34 (Oscal) 500 mg BID PO 09/09/17 09:00 09/09/17 20:35 Objective Vital Signs Date Time Temp Pulse Resp B/P (MAP) Pulse Ox O2 Delivery O2 Flow Rate FiO2 09/10/17 07:01 74 21 138/65 (89) 92 09/10/17 07:00 88 Nasal Cannula 30.00 50 09/10/17 06:01 76 27 135/65 (88) 95 09/10/17 06:00 75 09/10/17 05:01 76 21 133/65 (87) 90 09/10/17 04:01 98.0 76 28 126/63 (84) 95 09/10/17 04:00 76 09/10/17 03:01 76 24 124/63 (83) 93 09/10/17 02:01 76 25 122/59 (80) 97 09/10/17 02:00 75 09/10/17 01:01 76 26 118/53 (74) 96 09/10/17 00:01 97.7 76 25 134/67 (89) 94 2/27/18 00:00 77 09/09/17 23:01 76 28 144/70 (94) 94 09/09/17 22:01 76 27 132/65 (87) 94 09/09/17 22:00 86 Nasal Cannula 30.00 50 09/09/17 22:00 75 09/09/17 21:30 88 High Flow Nasal Cannula 22.00 50 09/09/17 20:01 98.0 78 31 137/67 (90) 96 09/09/17 20:00 77 09/09/17 20:00 93 Nasal Cannula 20.00 50 09/09/17 18:00 71 09/09/17 18:00 76 25 132/64 (86) 98 09/09/17 17:00 75 22 122/60 (80) 99 09/09/17 16:00 76 24 135/68 (90) 97 09/09/17 16:00 75 09/09/17 15:49 98 High Flow Nasal Cannula 20.00 50 09/09/17 15:00 74 27 132/63 (86) 100 09/09/17 14:00 75 09/09/17 14:00 78 26 135/67 (89) 98 09/09/17 13:56 78 27 135/67 (89) 98 09/09/17 13:05 78 27 130/66 (87) 98 09/09/17 12:01 98.1 78 24 128/67 (87) 98 09/09/17 12:00 68 09/09/17 11:01 80 26 127/62 (83) 97 09/09/17 10:01 80 28 123/66 (85) 96 09/09/17 10:00 89 09/09/17 09:46 96 High Flow Nasal Cannula 25.00 60 09/09/17 09:01 86 33 141/70 (93) 94 I/O 09/09/17 09/09/17 09/09/17 09/10/17 09/10/17 09/10/17 07:00 15:00 23:00 07:00 15:00 23:00 Intake Total 1578 ml 120 ml 120 ml 320 ml Output Total 600 ml 1 ml 700 ml 850 ml Balance 978 ml 119 ml -580 ml -850 ml 320 ml Intake Oral 60 ml 120 ml 120 ml 320 ml IV Total 1518 ml Output Urine Total 600 ml 700 ml 850 ml Stool Total 1 ml # Bowel Movements 0 1 0 Cardiovascular: Regular rate and rhythm with systolic murmur Lungs: Bilateral fibrotic rales otherwise clear to auscultation. Good air exchange Abdomen: Soft, nontender, nondistended with bowel sounds present Extremities: No calf tenderness or Homans sign. No edema. Result Diagram: 09/09/1743209/09/17432 Assessment and Plan Problem List: (1) Acute idiopathic pulmonary fibrosis ICD Codes: J84.112 - Idiopathic pulmonary fibrosis Status: Acute Plan: We'll try to get the patient out of bed today. Continue with steroids, oxygen, nebulizer treatments, antibiotics. She has stabilized at this time. Opened the improvement in respiratory status we can reduce oxygen oxygen. (2) Paroxysmal atrial fibrillation ICD Codes: I48.0 - Paroxysmal atrial fibrillation Status: Chronic Plan: The patient is currently in sinus rhythm. Continue with anticoagulation. (3) Abnormal LFTs ICD Codes: R94.5 - Abnormal results of liver function studies Status: Chronic Plan: LFTs are essentially stable. Will follow. Further workup once patient is medically stable. (4) Rheumatoid arthritis ICD Codes: M06.9 - Rheumatoid arthritis, unspecified Status: Chronic Plan: Patient has extensive joint deformities and disability. Tylenol and Tramadol prn. (5) Hypertension ICD Codes: I10 - Hypertension Status: Chronic Plan: Blood pressure under adequate control with current medications (6) Bacteremia ICD Codes: R78.81 - Bacteremia Status: Acute Plan: Awaiting final culture results. Continue with vancomycin for now. (7) Hypocalcemia ICD Codes: E83.51 - Hypocalcemia Status: Acute Plan: Continue calcium carbonate. Follow calcium level (8) At high risk for deep venous thrombosis ICD Codes: Z91.89 - Other specified personal risk factors, not elsewhere classified Status: Acute Plan: Patient is currently receiving Xarelto (9) Hyperlipidemia ICD Codes: E78.5 - Hyperlipidemia, unspecified Status: Chronic Plan: Statin discontinued due to abnormal LFT's Problem Qualifiers (1) Rheumatoid arthritis: (2) Hypertension: Qualified Codes: I10 - Essential (primary) hypertension (3) Hyperlipidemia: Qualified Codes: E78.2 - Mixed hyperlipidemia Riki Duarte MD Sep 10, 2017 08:21
[2017-09-10] MEDS: [UNRECOGNIZED DRUG - OTHER] PO SCH (08:41)
[2017-09-10] MEDS: PANTOPRAZOLE SOD 40 MG DELAYED RELEASE TAB PO SCH (08:42)
[2017-09-10] MEDS: DILTIAZEM-CD 180 MG CAP ER PO SCH (08:42)
[2017-09-10] MEDS: POTASSIUM CHLORIDE 20 MEQ CONTROLLED RELEASE TAB PO SCH (08:42)
[2017-09-10] MEDS: METOPROLOL TARTRATE 25 MG TAB PO SCH (08:42)
[2017-09-10] MEDS: DOCUSATE SODIUM 100 MG CAP PO SCH ×3 (08:42→21:00)
[2017-09-10] MEDS: RIVAROXABAN 15 MG TAB PO SCH (08:43)
[2017-09-10] MEDS: CALCIUM CARBONATE 1.25 GM (CA 500 MG) TAB PO SCH ×2 (08:43→21:06)
[2017-09-10] MEDS: FUROSEMIDE 20 MG TAB PO SCH (08:43)
[2017-09-10] MEDS: ARTIFICIAL TEARS OPTH SOLN 15 ML BTL EACH EYE SCH ×3 (08:44→17:45)
[2017-09-10] MEDS: FERROUS SULFATE 325 MG (65 MG ELEMENTAL IRON) TAB PO SCH (09:24)
[2017-09-10] MEDS: cefTRIAXone INJ 1,000 MG in SODIUM CHLORIDE 0.9% INJ 100 ML IV SCH (11:00)
[2017-09-10] MEDS: traMADol HCL 50 MG TAB PO PRN (11:10)
[2017-09-10] MEDS: VANCOMYCIN 1,000 MG/NS 250 ML IV SCH ×2 (12:31)
--- NOTE | 2017-09-10 17:15 | ECHRPT ---
Indication: sob CONCLUSIONS Normal left ventricular size. Normal LV systolic function (EF 55%). [id number] mitral valve regurgitation. Aortic valve sclerosis is present. Mild aortic valve regurgitation. Mild to moderate aortic stenosis. Mitral anular calcification. There is mild tricuspid valve regurgitation. The estimated pulmonary arterial pressure is 51 mmHg. BP: / HR: Rhythm: MEASUREMENTS (Male / Female) Normal Values Technical Quality:Fair 2D ECHO LV Diastolic Diameter PLAX 4.2 cm 4.2 - 5.9 / 3.9 - 5.3 cm LV Systolic Diameter PLAX 3.0 cm IVS Diastolic Thickness 1.0 cm 0.6 - 1.0 / 0.6 - 0.9 cm LVPW Diastolic Thickness 0.7 cm 0.6 - 1.0 / 0.6 - 0.9 cm LV Relative Wall Thickness 0.4 RV Internal Dim ED PLAX 2.1 cm LVOT Diameter 2.3 cm M-MODE Aortic Root Diameter MM 3.0 cm LA Systolic Diameter MM 3.5 cm LA Ao Ratio MM 1.2 AV Cusp Separation MM 1.3 cm DOPPLER AV Peak Velocity 276.5 cm/s AV Peak Gradient 30.6 mmHg AV Mean Gradient 14.5 mmHg AV Velocity Time Integral 57.5 cm AI Peak Velocity 413.0 cm/s AI Peak Gradient 68.2 mmHg AI Pressure Half Time 637.0 ms LVOT Peak Velocity 69.9 cm/s LVOT Peak Gradient 2.0 mmHg LVOT Velocity Time Integral 18.4 cm AV Area Cont Eq vti 1.3 cm AV Area Cont Eq pk 1.1 cm LV E' Lateral Velocity 8.4 cm/s LV E' Septal Velocity 7.4 cm/s TR Peak Velocity 321.0 cm/s TR Peak Gradient 41.2 mmHg Right Atrial Pressure 10.0 mmHg Pulmonary Artery Systolic Pressu 51.2 mmHg Right Ventricular Systolic Press 51.2 mmHg FINDINGS LEFT VENTRICLE Normal left ventricular size. The left ventricular systolic function is normal with an estimated ejection fraction of 55%. RIGHT VENTRICLE Normal right ventricular size and systolic function. LEFT ATRIUM The left atrial size is normal. RIGHT ATRIUM The right atrial size is normal. ATRIAL SEPTUM Normal atrial septal thickness without atrial level shunting by limited color doppler interrogation. AORTA The aortic root and proximal ascending aorta are normal in size on limited imaging. MITRAL VALVE Structurally normal mitral valve. [id number] mitral valve regurgitation. AORTIC VALVE Trileaflet aortic valve. Aortic valve sclerosis is present. Mild aortic valve regurgitation. P1/2t 637 Aortic valve area is 1.3 cm. Aortic valve mean gradient is 14.5 mmHg. TRICUSPID VALVE Structurally normal tricuspid valve. There is mild tricuspid valve regurgitation. The estimated pulmonary arterial pressure is 51.2 mmHg. PULMONARY VALVE No pulmonary valve regurgitation or stenosis. VESSELS The inferior vena cava is normal in size. PERICARDIUM No pericardial effusion. Dasha Mock MD, FACC (Electronically Signed) Final Date:10 September 2017 17:14
--- NOTE | 2017-09-10 18:59 | HHI.PR ---
Subjective Remarks no SOB on O2 by simple mask Objective Vital Signs Date Time Temp Pulse Resp B/P (MAP) Pulse Ox O2 Delivery O2 Flow Rate FiO2 09/10/17 18:00 76 27 132/64 (86) 94 09/10/17 18:00 76 09/10/17 17:00 76 20 123/59 (80) 95 09/10/17 16:00 76 09/10/17 16:00 98.4 76 27 131/71 (91) 95 09/10/17 15:52 95 High Flow Nasal Cannula 30.00 45 09/10/17 15:00 74 09/10/17 15:00 74 31 137/74 (95) 90 09/10/17 14:00 74 09/10/17 14:00 74 28 139/63 (88) 95 09/10/17 14:00 74 09/10/17 13:00 74 09/10/17 13:00 74 20 142/67 (92) 96 09/10/17 12:00 74 09/10/17 12:00 98.2 76 21 143/66 (91) 94 09/10/17 12:00 74 09/10/17 11:00 74 24 130/62 (84) 95 09/10/17 10:30 98 High Flow Nasal Cannula 30.00 50 09/10/17 10:00 74 09/10/17 10:00 74 24 130/62 (84) 95 09/10/17 09:00 78 26 123/55 (77) 89 09/10/17 08:00 98.8 80 26 156/72 (100) 89 09/10/17 08:00 80 09/10/17 07:01 74 21 138/65 (89) 92 09/10/17 07:00 88 Nasal Cannula 30.00 50 09/10/17 06:01 76 27 135/65 (88) 95 09/10/17 06:00 75 09/10/17 05:01 76 21 133/65 (87) 90 09/10/17 04:01 98.0 76 28 126/63 (84) 95 09/10/17 04:00 76 09/10/17 03:01 76 24 124/63 (83) 93 09/10/17 02:01 76 25 122/59 (80) 97 09/10/17 02:00 75 09/10/17 01:01 76 26 118/53 (74) 96 09/10/17 00:01 97.7 76 25 134/67 (89) 94 09/10/17 00:00 77 09/09/17 23:01 76 28 144/70 (94) 94 09/09/17 22:01 76 27 132/65 (87) 94 09/09/17 22:00 86 Nasal Cannula 30.00 50 09/09/17 22:00 75 09/09/17 21:30 88 High Flow Nasal Cannula 22.00 50 09/09/17 20:01 98.0 78 31 137/67 (90) 96 09/09/17 20:00 77 09/09/17 20:00 93 Nasal Cannula 20.00 50 I/O 09/09/17 09/09/17 09/09/17 09/10/17 09/10/17 09/10/17 07:00 15:00 23:00 07:00 15:00 23:00 Intake Total 1578 ml 120 ml 120 ml 320 ml 960 ml Output Total 600 ml 1 ml 700 ml 850 ml Balance 978 ml 119 ml -580 ml -850 ml 320 ml 960 ml Intake Oral 60 ml 120 ml 120 ml 320 ml 960 ml IV Total 1518 ml Output Urine Total 600 ml 700 ml 850 ml Stool Total 1 ml # Voids 4 # Bowel Movements 0 1 0 2 Result Diagram: 09/09/1743209/09/17432 Objective Remarks GENERAL: SKIN: Warm and dry. HEAD: Atraumatic. Normocephalic. EYES: Pupils equal and round. No scleral icterus. No injection or drainage. ENT: No nasal bleeding or discharge. Mucous membranes pink and moist. NECK: Trachea midline. No JVD. CARDIOVASCULAR: Regular rate and rhythm. RESPIRATORY: No accessory muscle use. bilateral rhonchi. GASTROINTESTINAL: Abdomen soft, non-tender, nondistended. Hepatic and splenic margins not palpable. MUSCULOSKELETAL: Extremities without clubbing, cyanosis, or edema. No obvious deformities. NEUROLOGICAL: Awake and alert. No obvious cranial nerve deficits. Motor grossly within normal limits. Five out of 5 muscle strength in the arms and legs. Normal speech. PSYCHIATRIC: Appropriate mood and affect; insight and judgment normal. Assessment and Plan Assessment and Plan respiratory filure copd pulm fibrosis plan O2 NEEDED BRONCHODILATORS STEROIDS INCREASE ACTIVITY Dayne Oscar MD Sep 10, 2017 18:59
[2017-09-10] MEDS: METOPROLOL TARTRATE 50 MG TAB PO SCH (21:06)
[2017-09-11] VITALS (34 sets, daily range): BP systolic 123–156; BP diastolic 57–102; PULSE 68–76; RESP 19–30; TEMP 97.9–98.4; O2SAT 87–100
[2017-09-11] MEDS: SODIUM CHLORIDE 0.9% FLUSH 10 ML FLUSH IVF PRN ×2 (00:51→06:17)
[2017-09-11] MEDS: methylPREDNISolone SOD SUCC 40 MG/1 ML VIAL IV PUSH SCH ×4 (00:51→18:28)
[2017-09-11] MEDS: RESP: ALBUTEROL 2.5 MG/IPRATROPIUM 0.5 MG NEB (SCH) NEB (02:50)
[2017-09-11] MEDS: CHLORHEXIDINE GLUCONATE 2 % 1 PACK (2 CLOTHS)(taper/protocol) TOPICAL SCH (04:00)
[2017-09-11 04:50] LABS: AUTOMATED NEUTROPHIL # 15.5 TH/MM3 (1.8-7.7); BASOPHIL # 0.1 TH/MM3 (0-0.2); BASOPHIL % 0.5 % (0.0-2.0); EOSINOPHIL % 0.1 % (0.0-4.0); HEMOGLOBIN 11.3 GM/DL (11.6-15.3); LYMPH % 1.1 % (9.0-44.0); LYMPHOCYTE # 0.2 TH/MM3 (1.0-4.8); MEAN CELL VOLUME 91.6 FL (80.0-100.0); MEAN CORPUSCULAR HEMOGLOBIN 32.5 PG (27.0-34.0); MEAN CORPUSCULAR HGB CONC 35.5 % (32.0-36.0); MEAN PLATELET VOLUME 7.7 FL (7.0-11.0); MONO % 3.6 % (0.0-8.0); MONOCYTE # 0.6 TH/MM3 (0-0.9); NEUT % 94.7 % (16.0-70.0); PLATELET COUNT 358 TH/MM3 (150-450); RED BLOOD COUNT 3.49 MIL/MM3 (4.00-5.30); RED CELL DISTRIBUTION WIDTH 13.5 % (11.6-17.2); WHITE BLOOD COUNT 16.4 TH/MM3 (4.0-11.0)
[2017-09-11 04:56] LABS: CHLORIDE 106 MEQ/L (98-107); SODIUM (NA) 141 MEQ/L (136-145)
[2017-09-11 04:59] LABS: BICARBONATE 25.8 MEQ/L (21.0-32.0); BLOOD UREA NITROGEN 31 MG/DL (7-18); CALCIUM 7.5 MG/DL (8.5-10.1); GLUCOSE,RANDOM 119 MG/DL (74-106)
[2017-09-11 05:02] LABS: ALT (GPT) 69 U/L (10-53); AST (GOT) 39 U/L (15-37); CREATININE 0.99 MG/DL (0.50-1.00); GLOMERULAR FILTRATION RATE 54 ML/MIN (>89)
[2017-09-11 05:04] LABS: TOTAL BILIRUBIN ADULT 0.6 MG/DL (0.2-1.0); TOTAL PROTEIN 5.6 GM/DL (6.4-8.2)
[2017-09-11 05:05] LABS: ALKALINE PHOSPHATASE 56 U/L (45-117)
[2017-09-11] MEDS: ARTIFICIAL TEARS OPTH SOLN 15 ML BTL EACH EYE SCH ×3 (08:38→18:28)
[2017-09-11] MEDS: CALCIUM CARBONATE 1.25 GM (CA 500 MG) TAB PO SCH ×2 (08:39→20:55)
[2017-09-11] MEDS: [UNRECOGNIZED DRUG - OTHER] PO SCH (08:39)
[2017-09-11] MEDS: METOPROLOL TARTRATE 25 MG TAB PO SCH (08:39)
[2017-09-11] MEDS: RIVAROXABAN 15 MG TAB PO SCH (08:39)
[2017-09-11] MEDS: DOCUSATE SODIUM 100 MG CAP PO SCH ×2 (08:40→20:57)
[2017-09-11] MEDS: PANTOPRAZOLE SOD 40 MG DELAYED RELEASE TAB PO SCH (08:40)
[2017-09-11] MEDS: FUROSEMIDE 20 MG TAB PO SCH (08:40)
[2017-09-11] MEDS: POTASSIUM CHLORIDE 20 MEQ CONTROLLED RELEASE TAB PO SCH (08:40)
[2017-09-11] MEDS: DILTIAZEM-CD 180 MG CAP ER PO SCH (08:40)
[2017-09-11] MEDS: FERROUS SULFATE 325 MG (65 MG ELEMENTAL IRON) TAB PO SCH (08:41)
[2017-09-11] MEDS: cefTRIAXone INJ 1,000 MG in SODIUM CHLORIDE 0.9% INJ 100 ML IV SCH (10:17)
[2017-09-11] MEDS: RESP: ALBUTEROL 2.5 MG/IPRATROPIUM 0.5 MG NEB (PRN) NEB ×3 (10:21→19:49)
--- NOTE | 2017-09-11 12:56 | HHI.PR ---
Subjective Remarks Patient is out of bed in a chair. Respiratory therapy has been able to reduce oxygen flow to 25 L/m. Oxygen saturations ranging 90-93%. Patient denies pain , shortness of breath, nausea or vomiting. Bowels are moving regularly. Appetite is good. Urine output is adequate. She remains afebrile. Occasional cough but no sputum production. Current Medications Medications (Trade) Dose Ordered Sig/Mart Route Start Time Stop Time Status Last Admin (NS Flush) 2 ml UNSCH PRN IVF 09/05/17 13:30 09/11/17 06:17 (Tylenol) 1,000 mg Q6HR PRN PO 09/05/17 20:00 09/09/17 20:38 (Lasix) 20 mg DAILY PO 09/06/17 09:00 Future hold 09/10/17 08:43 (Lopressor) 50 mg HS PO 09/05/17 21:00 09/10/17 21:06 (Lopressor) 75 mg DAILY PO 09/06/17 09:00 09/11/17 08:39 (KCl) 10 meq DAILY PO 09/06/17 09:00 09/11/17 08:40 (Xarelto) 15 mg DAILY PO 09/06/17 09:00 09/11/17 08:39 (Cardizem Cd) 180 mg DAILY PO 09/06/17 09:00 09/11/17 08:40 (Ultram) 50 mg Q8HR PRN PO 09/05/17 22:00 09/10/17 11:10 Patient Own Medication PT OWN MED:FYAVOLV 1MG-5... DAILY PO 09/06/17 14:00 09/11/17 08:39 (SoluMEDROL INJ) 60 mg Q6HR IV PUSH 09/07/17 12:00 09/11/17 12:33 Ceftriaxone Sodium 1000 mg/ Sodium Chloride 100 ml @ 200 mls/hr Q24H IV 09/07/17 10:00 09/11/17 10:17 Miscellaneous Information Patient in critical care unit? Ass... Q361D .XX 09/07/17 10:00 09/07/17 10:00 (Chlorhexidine 2% Cloth) 3 pack DAILY@04 TOPICAL 09/08/17 04:00 09/12/17 04:01 09/11/17 04:00 (Chlorhexidine 2% Cloth) 3 pack UNSCH PRN TOPICAL 09/07/17 10:00 09/12/17 09:51 (Protonix) 40 mg DAILY PO 09/07/17 10:00 09/11/17 08:40 (Duoneb Neb) 1 ampule Q2HR NEB PRN NEB 09/07/17 10:00 09/11/17 10:21 Pharmacy Profile Note 0 ml @ 0 mls/hr UNSCH OTHER 09/07/17 10:15 Vancomycin HCl 1000 mg/Sodium Chloride 250 ml @ 250 mls/hr Q36H IV 09/09/17 01:00 09/10/17 12:31 Miscellaneous Information SPECIFIC LAB TO BE MELBA... ONCE ONCE .XX 09/12/17 00:45 09/12/17 00:46 (Colace) 100 mg BID PO 09/07/17 14:00 09/11/17 08:40 (Tears Naturale Opth Soln) 1 drop TID EACH EYE 09/09/17 09:00 09/11/17 12:34 (Oscal) 500 mg BID PO 09/09/17 09:00 09/11/17 08:39 (Ferrous Sulfate) 325 mg DAILY PO 09/10/17 09:00 09/11/17 08:41 Objective Vital Signs Date Time Temp Pulse Resp B/P (MAP) Pulse Ox O2 Delivery O2 Flow Rate FiO2 09/11/17 11:59 96 Nasal Cannula 25.00 40 09/11/17 11:00 74 25 142/63 (89) 92 09/11/17 10:24 91 High Flow Nasal Cannula 30.00 40 09/11/17 10:00 72 09/11/17 10:00 74 28 138/68 (91) 94 09/11/17 09:00 74 29 140/61 (87) 90 09/11/17 08:00 76 25 134/65 (88) 87 09/11/17 08:00 74 09/11/17 07:00 97.9 72 26 145/64 (91) 94 09/11/17 07:00 96 Nasal Cannula 30.00 50 09/11/17 06:01 72 24 150/75 (100) 97 09/11/17 06:00 73 09/11/17 05:01 72 19 138/66 (90) 91 09/11/17 04:01 98.4 72 27 145/70 (95) 94 09/11/17 04:00 72 09/11/17 03:01 72 21 150/73 (98) 93 09/11/17 02:01 72 19 136/68 (90) 90 09/11/17 02:00 72 09/11/17 01:01 72 26 129/62 (84) 94 09/11/17 00:01 98.0 74 24 140/71 (94) 90 09/11/17 00:00 73 09/10/17 23:01 72 25 120/58 (78) 94 09/10/17 22:01 74 21 120/58 (78) 93 09/10/17 22:00 72 09/10/17 21:01 70 26 140/65 (90) 97 09/10/17 20:01 98.0 72 23 126/69 (88) 96 09/10/17 20:00 71 09/10/17 20:00 92 Nasal Cannula 30.00 50 09/10/17 19:25 95 High Flow Nasal Cannula 30.00 40 09/10/17 19:01 74 20 120/58 (78) 91 09/10/17 18:00 76 27 132/64 (86) 94 09/10/17 18:00 76 09/10/17 17:00 76 20 123/59 (80) 95 09/10/17 16:00 76 09/10/17 16:00 98.4 76 27 131/71 (91) 95 09/10/17 15:52 95 High Flow Nasal Cannula 30.00 45 09/10/17 15:00 74 09/10/17 15:00 74 31 137/74 (95) 90 09/10/17 14:00 74 09/10/17 14:00 74 28 139/63 (88) 95 09/10/17 14:00 74 09/10/17 13:00 74 09/10/17 13:00 74 20 142/67 (92) 96 I/O 09/10/17 09/10/17 09/10/17 09/11/17 09/11/17 09/11/17 07:00 15:00 23:00 07:00 15:00 23:00 Intake Total 670 ml 960 ml 620 ml 100 ml Output Total 850 ml Balance -850 ml 670 ml 960 ml 620 ml 100 ml Intake Oral 320 ml 960 ml 620 ml IV Total 350 ml 100 ml Output Urine Total 850 ml # Voids 4 5 1 # Bowel Movements 0 2 0 1 Cardiovascular: Regular rate and rhythm Lungs: Scattered fibrotic rales worse on the left than the right, no wheezes or rhonchi, moderately reduced air exchange Abdomen: Soft, nontender bowel sounds present Lower extremities: No edema. Result Diagram: 09/11/1741909/11/17419 Assessment and Plan Problem List: (1) Acute idiopathic pulmonary fibrosis ICD Codes: J84.112 - Idiopathic pulmonary fibrosis Status: Acute Plan: Oxygen flow rate has been decreased. Patient appears to have some improvement today. Will continue with high-dose steroids, nebulizer treatments , antibiotics. Have encouraged patient to be out of bed as much as tolerated. Have encouraged incentive spirometry. (2) Paroxysmal atrial fibrillation ICD Codes: I48.0 - Paroxysmal atrial fibrillation Status: Chronic Plan: Patient remains in sinus rhythm. Continue anticoagulation (3) Abnormal LFTs ICD Codes: R94.5 - Abnormal results of liver function studies Status: Chronic Plan: LFTs are essentially stable. Will follow. Further workup once patient is medically stable. (4) Rheumatoid arthritis ICD Codes: M06.9 - Rheumatoid arthritis, unspecified Status: Chronic Plan: Patient has extensive joint deformities and disability. Tylenol and Tramadol prn. (5) Hypertension ICD Codes: I10 - Hypertension Status: Chronic Plan: Blood pressure under adequate control with current medications (6) Bacteremia ICD Codes: R78.81 - Bacteremia Status: Acute Plan: Blood cultures positive for coagulase-negative staph species. Awaiting final ID and OLAYINKA's. Patient currently receiving vancomycin (7) Hypocalcemia ICD Codes: E83.51 - Hypocalcemia Status: Acute Plan: Calcium level improving. Continue with calcium carbonate. (8) At high risk for deep venous thrombosis ICD Codes: Z91.89 - Other specified personal risk factors, not elsewhere classified Status: Acute Plan: Patient is currently receiving Xarelto (9) Hyperlipidemia ICD Codes: E78.5 - Hyperlipidemia, unspecified Status: Chronic Plan: Statin discontinued due to abnormal LFT's Discussed Condition With The patient's was at the bedside. I explained to the patient and her that her acute exacerbation of pulmonary fibrosis could've been precipitated by medication. We have discontinued the amiodarone. It may take months to see a significant improvement in her respiratory status. She has now had some improvement as demonstrated by the decrease in oxygen flow rate. We will continue with the current regimen of medication with the ultimate goal of weaning the oxygen down to a standard nasal cannula with a rate less than 10 L/ m. If this occurs, may be able to discharge the patient home. They would prefer for the patient's return to the assisted living facility in which she was residing prior to admission. Problem Qualifiers (1) Rheumatoid arthritis: (2) Hypertension: Qualified Codes: I10 - Essential (primary) hypertension (3) Hyperlipidemia: Qualified Codes: E78.2 - Mixed hyperlipidemia Riki Duarte MD Sep 11, 2017 12:56
[2017-09-11] MEDS: METOPROLOL TARTRATE 50 MG TAB PO SCH (20:55)
[2017-09-12] VITALS (37 sets, daily range): BP systolic 124–158; BP diastolic 53–96; PULSE 68–78; RESP 18–31; TEMP 97.4–98.2; O2SAT 90–100
[2017-09-12] MEDS: SODIUM CHLORIDE 0.9% FLUSH 10 ML FLUSH IVF PRN ×2 (00:40→05:52)
[2017-09-12] MEDS: methylPREDNISolone SOD SUCC 40 MG/1 ML VIAL IV PUSH SCH ×2 (00:40→05:52)
[2017-09-12] MEDS: VANCOMYCIN 1,000 MG/NS 250 ML IV SCH ×2 (00:44)
[2017-09-12] MEDS ORDERED: PHARMACY ORDERED LAB ONE (00:45)
[2017-09-12] MEDS: CHLORHEXIDINE GLUCONATE 2 % 1 PACK (2 CLOTHS)(taper/protocol) TOPICAL SCH (04:00)
[2017-09-12] MEDS: RESP: ALBUTEROL 2.5 MG/IPRATROPIUM 0.5 MG NEB (PRN) NEB (07:27)
--- NOTE | 2017-09-12 08:27 | HHI.PR ---
Subjective Remarks The patient is currently on 6 L/m per nasal cannula. Oxygen saturations range between 90-92%. She denies any shortness of breath. Occasional cough. She was out of bed for 2 hours yesterday. By mouth intake is good. Urine output good. Bowels moving. Denies any chest pain or palpitations. Current Medications Medications (Trade) Dose Ordered Sig/Mart Route Start Time Stop Time Status Last Admin (NS Flush) 2 ml UNSCH PRN IVF 09/05/17 13:30 09/12/17 05:52 (Tylenol) 1,000 mg Q6HR PRN PO 09/05/17 20:00 09/09/17 20:38 (Lasix) 20 mg DAILY PO 09/06/17 09:00 Future hold 09/10/17 08:43 (Lopressor) 50 mg HS PO 09/05/17 21:00 09/11/17 20:55 (Lopressor) 75 mg DAILY PO 09/06/17 09:00 09/11/17 08:39 (KCl) 10 meq DAILY PO 09/06/17 09:00 09/11/17 08:40 (Xarelto) 15 mg DAILY PO 09/06/17 09:00 09/11/17 08:39 (Cardizem Cd) 180 mg DAILY PO 09/06/17 09:00 09/11/17 08:40 (Ultram) 50 mg Q8HR PRN PO 09/05/17 22:00 09/10/17 11:10 Patient Own Medication PT OWN MED:FYAVOLV 1MG-5... DAILY PO 09/06/17 14:00 09/11/17 08:39 (SoluMEDROL INJ) 60 mg Q6HR IV PUSH 09/07/17 12:00 09/12/17 05:52 Miscellaneous Information Patient in critical care unit? Ass... Q361D .XX 09/07/17 10:00 09/07/17 10:00 (Chlorhexidine 2% Cloth) 3 pack UNSCH PRN TOPICAL 09/07/17 10:00 09/12/17 09:51 (Protonix) 40 mg DAILY PO 09/07/17 10:00 09/11/17 08:40 (Duoneb Neb) 1 ampule Q2HR NEB PRN NEB 09/07/17 10:00 09/12/17 07:27 (Colace) 100 mg BID PO 09/07/17 14:00 09/11/17 08:40 (Tears Naturale Opth Soln) 1 drop TID EACH EYE 09/09/17 09:00 09/11/17 18:28 (Oscal) 500 mg BID PO 09/09/17 09:00 09/11/17 20:55 (Ferrous Sulfate) 325 mg DAILY PO 09/10/17 09:00 09/11/17 08:41 (Ceftin) 500 mg Q12HR PO 09/12/17 09:00 UNV Objective Vital Signs Date Time Temp Pulse Resp B/P (MAP) Pulse Ox O2 Delivery O2 Flow Rate FiO2 09/12/17 07:28 93 Nasal Cannula 6.00 09/12/17 06:11 71 09/12/17 06:01 72 25 145/70 (95) 92 09/12/17 05:01 70 28 140/68 (92) 97 09/12/17 04:01 98.0 70 24 140/67 (91) 92 09/12/17 04:00 71 09/12/17 03:01 76 30 148/89 (108) 92 09/12/17 02:01 70 23 133/66 (88) 94 09/12/17 02:00 70 09/12/17 01:01 72 24 130/61 (84) 90 09/12/17 00:01 98.2 72 25 131/65 (87) 98 09/12/17 00:00 71 09/11/17 23:01 72 26 123/61 (81) 99 09/11/17 22:01 76 24 133/64 (87) 90 09/11/17 21:01 76 30 152/67 (95) 93 09/11/17 20:01 98.0 72 26 142/67 (92) 95 09/11/17 20:00 93 Nasal Cannula 6.00 09/11/17 20:00 73 09/11/17 19:50 93 Nasal Cannula 6.00 09/11/17 19:01 74 29 139/57 (84) 95 09/11/17 18:00 74 30 134/64 (87) 97 09/11/17 18:00 74 09/11/17 17:00 74 26 129/77 (94) 91 09/11/17 16:00 98.2 68 26 134/63 (86) 100 09/11/17 16:00 68 09/11/17 15:15 98 Nasal Cannula 6.00 09/11/17 15:10 95 High Flow Nasal Cannula 20.00 40 09/11/17 15:00 68 20 141/74 (96) 87 09/11/17 14:10 94 High Flow Nasal Cannula 25.00 40 09/11/17 14:00 70 09/11/17 14:00 70 21 154/72 (99) 93 09/11/17 13:00 70 23 156/102 (120) 89 09/11/17 12:00 98.2 70 20 144/75 (98) 91 09/11/17 12:00 70 09/11/17 11:59 96 Nasal Cannula 25.00 40 09/11/17 11:00 74 25 142/63 (89) 92 09/11/17 10:24 91 High Flow Nasal Cannula 30.00 40 09/11/17 10:00 72 09/11/17 10:00 74 28 138/68 (91) 94 09/11/17 09:00 74 29 140/61 (87) 90 I/O 09/11/17 09/11/17 09/11/17 09/12/17 09/12/17 09/12/17 07:00 15:00 23:00 07:00 15:00 23:00 Intake Total 620 ml 100 ml 960 ml 240 ml Balance 620 ml 100 ml 960 ml 240 ml Intake Oral 620 ml 960 ml 240 ml IV Total 100 ml # Voids 5 1 2 4 # Bowel Movements 0 1 1 0 Cardiovascular: Regular rate and rhythm with soft systolic murmur Lungs: Scattered fibrotic rales but no wheezes or rhonchi. Good air exchange. Abdomen: Soft, nontender, nondistended with bowel sounds present Lower extremities reveal no edema, calf tenderness or Homans sign. The bilateral heels are intact without any tenderness or erythema. Result Diagram: 09/11/1741909/11/17419 Assessment and Plan Problem List: (1) Acute idiopathic pulmonary fibrosis ICD Codes: J84.112 - Idiopathic pulmonary fibrosis Status: Acute Plan: The patient is now on a nasal cannula without high flow oxygen. I plan to keep her in the ICU one more day to ensure that she maintains her current respiratory status and does not deteriorate. Will have the patient out of bed. Will reduce Solu-Medrol to 60 mg every [address] Rocephin and place patient on cefuroxime. Continue with nebulizer treatments. (2) Paroxysmal atrial fibrillation ICD Codes: I48.0 - Paroxysmal atrial fibrillation Status: Chronic Plan: Patient remains in sinus rhythm. Continue anticoagulation (3) Abnormal LFTs ICD Codes: R94.5 - Abnormal results of liver function studies Status: Chronic Plan: LFTs are essentially stable. Will follow. Further workup once patient is medically stable. (4) Rheumatoid arthritis ICD Codes: M06.9 - Rheumatoid arthritis, unspecified Status: Chronic Plan: Patient has extensive joint deformities and disability. Tylenol and Tramadol prn. (5) Hypertension ICD Codes: I10 - Hypertension Status: Chronic Plan: Blood pressure under adequate control with current medications (6) Bacteremia ICD Codes: R78.81 - Bacteremia Status: Resolved Plan: Blood cultures revealed Staphylococcus species coagulase-negative. This is likely a skin contaminant. I will discontinue vancomycin. (7) Hypocalcemia ICD Codes: E83.51 - Hypocalcemia Status: Acute Plan: Calcium level improving. Continue with calcium carbonate. (8) At high risk for deep venous thrombosis ICD Codes: Z91.89 - Other specified personal risk factors, not elsewhere classified Status: Acute Plan: Patient is currently receiving Xarelto (9) Hyperlipidemia ICD Codes: E78.5 - Hyperlipidemia, unspecified Status: Chronic Plan: Statin discontinued due to abnormal LFT's Discussed Condition With Left voicemail for patient's , Bg, notifying him of the patient's improvement and plan a care. Discharge Planning I plan for the patient to be in the ICU another day and then transferred to the medical/surgical floor. Ultimately she wants to return home to the assisted- living facility in which she resides. As long as she is on a nasal cannula, this will be possible. Problem Qualifiers (1) Rheumatoid arthritis: (2) Hypertension: Qualified Codes: I10 - Essential (primary) hypertension (3) Hyperlipidemia: Qualified Codes: E78.2 - Mixed hyperlipidemia Riki Duarte MD Sep 12, 2017 08:27
[2017-09-12] MEDS: DOCUSATE SODIUM 100 MG CAP PO SCH ×2 (09:00→21:00)
[2017-09-12] MEDS: methylPREDNISolone SOD SUCC 125 MG/2 ML VIAL IV PUSH SCH ×3 (09:00→21:14)
[2017-09-12] MEDS: CEFUROXIME AXETIL 500 MG TAB PO SCH ×2 (09:03→21:13)
[2017-09-12] MEDS: CALCIUM CARBONATE 1.25 GM (CA 500 MG) TAB PO SCH ×2 (09:03→21:14)
[2017-09-12] MEDS: METOPROLOL TARTRATE 25 MG TAB PO SCH (09:04)
[2017-09-12] MEDS: DILTIAZEM-CD 180 MG CAP ER PO SCH (09:04)
[2017-09-12] MEDS: PANTOPRAZOLE SOD 40 MG DELAYED RELEASE TAB PO SCH (09:04)
[2017-09-12] MEDS: FUROSEMIDE 20 MG TAB PO SCH (09:04)
[2017-09-12] MEDS: FERROUS SULFATE 325 MG (65 MG ELEMENTAL IRON) TAB PO SCH (09:04)
[2017-09-12] MEDS: RIVAROXABAN 15 MG TAB PO SCH (09:05)
[2017-09-12] MEDS: POTASSIUM CHLORIDE 10 MEQ CONTROLLED RELEASE TAB PO SCH (09:05)
[2017-09-12] MEDS: [UNRECOGNIZED DRUG - OTHER] PO SCH (09:09)
[2017-09-12] MEDS: ARTIFICIAL TEARS OPTH SOLN 15 ML BTL EACH EYE SCH ×3 (09:09→17:38)
--- NOTE | 2017-09-12 14:56 | HHI.PR ---
Subjective Remarks no SOB now on 6 l/ o2 Objective Vital Signs Date Time Temp Pulse Resp B/P (MAP) Pulse Ox O2 Delivery O2 Flow Rate FiO2 09/12/17 14:01 74 28 136/59 (84) 98 09/12/17 14:00 74 09/12/17 13:01 74 18 138/69 (92) 91 09/12/17 12:01 97.7 72 24 146/74 (98) 96 09/12/17 12:00 72 09/12/17 11:01 76 22 140/74 (96) 94 09/12/17 10:00 78 29 140/67 (91) 93 09/12/17 10:00 78 09/12/17 09:01 78 28 158/81 (106) 90 09/12/17 08:01 97.8 76 22 145/66 (92) 90 09/12/17 08:00 92 Nasal Cannula 6.00 09/12/17 08:00 69 09/12/17 07:28 93 Nasal Cannula 6.00 09/12/17 07:01 70 28 148/74 (98) 100 09/12/17 06:11 71 09/12/17 06:01 72 25 145/70 (95) 92 09/12/17 05:01 70 28 140/68 (92) 97 09/12/17 04:01 98.0 70 24 140/67 (91) 92 09/12/17 04:00 71 09/12/17 03:01 76 30 148/89 (108) 92 09/12/17 02:01 70 23 133/66 (88) 94 09/12/17 02:00 70 09/12/17 01:01 72 24 130/61 (84) 90 09/12/17 00:01 98.2 72 25 131/65 (87) 98 09/12/17 00:00 71 09/11/17 23:01 72 26 123/61 (81) 99 09/11/17 22:01 76 24 133/64 (87) 90 09/11/17 21:01 76 30 152/67 (95) 93 09/11/17 20:01 98.0 72 26 142/67 (92) 95 09/11/17 20:00 93 Nasal Cannula 6.00 09/11/17 20:00 73 09/11/17 19:50 93 Nasal Cannula 6.00 2/28/18 19:01 74 29 139/57 (84) 95 09/11/17 18:00 74 30 134/64 (87) 97 09/11/17 18:00 74 09/11/17 17:00 74 26 129/77 (94) 91 09/11/17 16:00 98.2 68 26 134/63 (86) 100 09/11/17 16:00 68 09/11/17 15:15 98 Nasal Cannula 6.00 09/11/17 15:10 95 High Flow Nasal Cannula 20.00 40 09/11/17 15:00 68 20 141/74 (96) 87 I/O 09/11/17 09/11/17 09/11/17 09/12/17 09/12/17 09/12/17 07:00 15:00 23:00 07:00 15:00 23:00 Intake Total 620 ml 100 ml 960 ml 240 ml Balance 620 ml 100 ml 960 ml 240 ml Intake Oral 620 ml 960 ml 240 ml IV Total 100 ml # Voids 5 1 2 4 # Bowel Movements 0 1 1 0 Result Diagram: 09/11/17 0420 09/11/17 0420 Objective Remarks GENERAL: SKIN: Warm and dry. HEAD: Atraumatic. Normocephalic. EYES: Pupils equal and round. No scleral icterus. No injection or drainage. ENT: No nasal bleeding or discharge. Mucous membranes pink and moist. NECK: Trachea midline. No JVD. CARDIOVASCULAR: Regular rate and rhythm. RESPIRATORY: No accessory muscle use. bilateral rhonchi. GASTROINTESTINAL: Abdomen soft, non-tender, nondistended. Hepatic and splenic margins not palpable. MUSCULOSKELETAL: Extremities without clubbing, cyanosis, or edema. No obvious deformities. NEUROLOGICAL: Awake and alert. No obvious cranial nerve deficits. Motor grossly within normal limits. Five out of 5 muscle strength in the arms and legs. Normal speech. PSYCHIATRIC: Appropriate mood and affect; insight and judgment normal. Assessment and Plan Assessment and Plan respiratory filure copd pulm fibrosis improving plan O2 NEEDED BRONCHODILATORS STEROIDS INCREASE ACTIVITY may D/C WHEN O2 REQUIREMENT DOWN TO 4L/NC OR LESS Dayne Oscar MD Sep 12, 2017 14:56
[2017-09-12] MEDS: METOPROLOL TARTRATE 50 MG TAB PO SCH (21:14)
[2017-09-13] VITALS (40 sets, daily range): BP systolic 125–147; BP diastolic 55–74; PULSE 64–77; RESP 17–42; TEMP 97.6–98.2; O2SAT 84–100
[2017-09-13 05:04] LABS: CHLORIDE 106 MEQ/L (98-107); SODIUM (NA) 141 MEQ/L (136-145)
[2017-09-13 05:05] LABS: AUTOMATED NEUTROPHIL # 24.4 TH/MM3 (1.8-7.7); BASOPHIL % 0.1 % (0.0-2.0); EOSINOPHIL % 0.1 % (0.0-4.0); HEMATOCRIT 36.5 % (35.0-46.0); HEMOGLOBIN 12.2 GM/DL (11.6-15.3); LYMPH % 0.8 % (9.0-44.0); LYMPHOCYTE # 0.2 TH/MM3 (1.0-4.8); MEAN CELL VOLUME 90.1 FL (80.0-100.0); MEAN CORPUSCULAR HEMOGLOBIN 30.2 PG (27.0-34.0); MEAN CORPUSCULAR HGB CONC 33.5 % (32.0-36.0); MEAN PLATELET VOLUME 8.5 FL (7.0-11.0); MONO % 3.2 % (0.0-8.0); MONOCYTE # 0.8 TH/MM3 (0-0.9); NEUT % 95.8 % (16.0-70.0); PLATELET COUNT 359 TH/MM3 (150-450); RED BLOOD COUNT 4.05 MIL/MM3 (4.00-5.30); RED CELL DISTRIBUTION WIDTH 13.1 % (11.6-17.2); WHITE BLOOD COUNT 25.4 TH/MM3 (4.0-11.0)
[2017-09-13 05:08] LABS: ALBUMIN 2.2 GM/DL (3.4-5.0); BICARBONATE 29.5 MEQ/L (21.0-32.0); BLOOD UREA NITROGEN 35 MG/DL (7-18); CALCIUM 7.5 MG/DL (8.5-10.1); GLUCOSE,RANDOM 129 MG/DL (74-106)
[2017-09-13 05:11] LABS: ALT (GPT) 99 U/L (10-53); AST (GOT) 68 U/L (15-37); GLOMERULAR FILTRATION RATE 53 ML/MIN (>89)
[2017-09-13 05:13] LABS: TOTAL BILIRUBIN ADULT 0.9 MG/DL (0.2-1.0); TOTAL PROTEIN 6.1 GM/DL (6.4-8.2)
[2017-09-13 05:14] LABS: ALKALINE PHOSPHATASE 63 U/L (45-117)
[2017-09-13] MEDS: methylPREDNISolone SOD SUCC 125 MG/2 ML VIAL IV PUSH SCH (06:37)
[2017-09-13] MEDS: ACETAMINOPHEN 500 MG CPLT PO PRN (06:38)
[2017-09-13] MEDS: [UNRECOGNIZED DRUG - OTHER] PO SCH (09:00)
[2017-09-13] MEDS: ARTIFICIAL TEARS OPTH SOLN 15 ML BTL EACH EYE SCH ×3 (09:00→18:00)
--- NOTE | 2017-09-13 09:05 | HHI.PR ---
Subjective Remarks Patient denies any shortness of breath with oxygen at 6 L/m per nasal cannula. Oxygen saturations are ranging between 93-94%. Denies any significant cough or congestion. White blood cell count is increasing despite reduction in steroids. Patient has been afebrile. No evidence of any diarrhea. Nurses report that urine smells strong. Patient denies any abdominal pain, nausea or vomiting. Current Medications Medications (Trade) Dose Ordered Sig/Mart Route Start Time Stop Time Status Last Admin (NS Flush) 2 ml UNSCH PRN IVF 09/05/17 13:30 09/12/17 05:52 (Tylenol) 1,000 mg Q6HR PRN PO 09/05/17 20:00 09/13/17 06:38 (Lasix) 20 mg DAILY PO 09/06/17 09:00 Future hold 09/12/17 09:04 (Lopressor) 50 mg HS PO 09/05/17 21:00 09/12/17 21:14 (Lopressor) 75 mg DAILY PO 09/06/17 09:00 09/12/17 09:04 (Xarelto) 15 mg DAILY PO 09/06/17 09:00 09/12/17 09:05 (Cardizem Cd) 180 mg DAILY PO 09/06/17 09:00 09/12/17 09:04 (Ultram) 50 mg Q8HR PRN PO 09/05/17 22:00 09/10/17 11:10 Patient Own Medication PT OWN MED:FYAVOLV 1MG-5... DAILY PO 09/06/17 14:00 09/12/17 09:09 Miscellaneous Information Patient in critical care unit? Ass... Q361D .XX 09/07/17 10:00 09/07/17 10:00 (Protonix) 40 mg DAILY PO 09/07/17 10:00 09/12/17 09:04 (Duoneb Neb) 1 ampule Q2HR NEB PRN NEB 09/07/17 10:00 09/12/17 07:27 (Colace) 100 mg BID PO 09/07/17 14:00 09/11/17 08:40 (Tears Naturale Opth Soln) 1 drop TID EACH EYE 09/09/17 09:00 09/12/17 17:38 (Oscal) 500 mg BID PO 09/09/17 09:00 09/12/17 21:14 (Ferrous Sulfate) 325 mg DAILY PO 09/10/17 09:00 09/12/17 09:04 (Ceftin) 500 mg Q12HR PO 09/12/17 09:00 09/12/17 21:13 (KCl) 10 meq DAILY PO 09/12/17 09:00 09/12/17 09:05 (Deltasone) 20 mg BID PO 09/13/17 09:00 Objective Vital Signs Date Time Temp Pulse Resp B/P (MAP) Pulse Ox O2 Delivery O2 Flow Rate FiO2 09/13/17 08:50 95 Nasal Cannula 6.00 09/13/17 07:01 70 28 133/55 (81) 96 09/13/17 06:01 74 27 138/62 (87) 88 09/13/17 06:00 74 09/13/17 05:01 72 27 127/55 (79) 97 09/13/17 04:01 97.7 74 31 136/62 (86) 92 09/13/17 04:01 74 09/13/17 02:00 68 26 140/62 (88) 99 09/13/17 02:00 68 09/13/17 01:01 72 24 147/70 (95) 98 09/13/17 00:01 97.7 70 26 140/65 (90) 92 09/13/17 00:00 70 09/13/17 00:00 92 Nasal Cannula 6.00 09/12/17 23:01 68 27 147/65 (92) 99 09/12/17 22:33 99 Nasal Cannula 6.00 09/12/17 22:01 72 25 150/74 (99) 91 09/12/17 22:00 90 Nasal Cannula 6.00 09/12/17 22:00 72 09/12/17 21:01 72 28 139/59 (85) 97 09/12/17 21:00 93 Nasal Cannula 6.00 09/12/17 20:01 97.7 74 30 131/54 (79) 96 09/12/17 20:00 74 09/12/17 19:07 74 27 124/58 (80) 99 09/12/17 19:01 74 29 127/53 (77) 99 09/12/17 19:00 100 Nasal Cannula 6.00 09/12/17 18:00 74 09/12/17 18:00 74 28 136/96 (109) 94 09/12/17 17:00 70 24 150/67 (94) 98 09/12/17 16:00 70 09/12/17 16:00 97.4 70 25 149/68 (95) 99 09/12/17 15:01 72 31 135/76 (95) 97 09/12/17 14:01 74 28 136/59 (84) 98 09/12/17 14:00 74 09/12/17 13:01 74 18 138/69 (92) 91 09/12/17 12:01 97.7 72 24 146/74 (98) 96 09/12/17 12:00 72 09/12/17 11:01 76 22 140/74 (96) 94 09/12/17 10:00 78 29 140/67 (91) 93 09/12/17 10:00 78 09/12/17 09:01 78 28 158/81 (106) 90 I/O 09/12/17 09/12/17 09/12/17 09/13/17 09/13/17 09/13/17 07:00 15:00 23:00 07:00 15:00 23:00 Intake Total 240 ml 1100 ml 717 ml Balance 240 ml 1100 ml 717 ml Intake Oral 240 ml 1100 ml 480 ml Oral Supplement 237 ml # Voids 4 6 2 # Bowel Movements 0 1 Cardiovascular: Regular rhythm with soft systolic murmur Lungs: Scattered fibrotic rales, no rhonchi or wheezes. Good air exchange Abdomen: Soft, mildly distended, bowel sounds present, nontender, no masses Extremities: Trace edema in the bilateral lower extremities. No calf tenderness or Homans sign Skin: Intact: Result Diagram: 09/13/17 0425 09/13/17 0425 Other Results Blood culture: Staphylococcus capitis Assessment and Plan Problem List: (1) Leukocytosis ICD Codes: D72.829 - Elevated white blood cell count, unspecified Status: Acute Plan: The patient's white blood cell count is increasing despite decreasing the steroids. She is afebrile. No obvious source of infection. Will consult infectious disease for assistance in evaluation for possible occult infection. Blood culture was positive for Staphylococcus capitis which is a skin andrzej and likely a contaminant. Will repeat blood culture. Will check UA with C&S if indicated in chest x-ray. I have ordered a procalcitonin level. (2) Acute idiopathic pulmonary fibrosis ICD Codes: J84.112 - Idiopathic pulmonary fibrosis Status: Acute Plan: Will change to oral steroids. Continue with nebulizer treatments. Continue to try to wean oxygen. Patient cannot be discharged home until oxygen demand is <5 L/m. (3) Paroxysmal atrial fibrillation ICD Codes: I48.0 - Paroxysmal atrial fibrillation Status: Chronic Plan: Patient remains in sinus rhythm. Continue anticoagulation (4) Abnormal LFTs ICD Codes: R94.5 - Abnormal results of liver function studies Status: Chronic Plan: LFTs are essentially stable. Will follow. Further workup once patient is medically stable. (5) Rheumatoid arthritis ICD Codes: M06.9 - Rheumatoid arthritis, unspecified Status: Chronic Plan: Patient has extensive joint deformities and disability. Tylenol and Tramadol prn. (6) Hypertension ICD Codes: I10 - Hypertension Status: Chronic Plan: Blood pressure under adequate control with current medications (7) Bacteremia ICD Codes: R78.81 - Bacteremia Status: Resolved Plan: Blood cultures were positive for Staphylococcus capitis which is a skin andrzej and likely contaminant. (8) Hypocalcemia ICD Codes: E83.51 - Hypocalcemia Status: Acute Plan: Calcium level improving. Continue with calcium carbonate. (9) At high risk for deep venous thrombosis ICD Codes: Z91.89 - Other specified personal risk factors, not elsewhere classified Status: Acute Plan: Patient is currently receiving Xarelto (10) Hyperlipidemia ICD Codes: E78.5 - Hyperlipidemia, unspecified Status: Chronic Plan: Statin discontinued due to abnormal LFT's Problem Qualifiers (1) Leukocytosis: Qualified Codes: D72.829 - Elevated white blood cell count, unspecified (2) Rheumatoid arthritis: (3) Hypertension: Qualified Codes: I10 - Essential (primary) hypertension (4) Hyperlipidemia: Qualified Codes: E78.2 - Mixed hyperlipidemia Riki Duarte MD Sep 13, 2017 09:05
--- NOTE | 2017-09-13 09:40 | RADRPT ---
EXAM DATE/TIME: 09/13/2017 09:08 [facility] COMPARISON: CHEST SINGLE AP, September 07, 2017, 8:25. INDICATIONS : Pulmonary fibrosis. MEDICAL HISTORY : Hypertension. Stroke SURGICAL HISTORY : Tubal ligation. Left shoulder and right great toe. ENCOUNTER: Initial ACUITY: 2 weeks PAIN SCORE: 0/10 LOCATION: chest FINDINGS: Stable diffuse interstitial opacity not definitely changed with cardiomegaly. No definite effusion. O sseous structures are intact. CONCLUSION: No significant change has occurred. Rupesh Holguin MD on September 13, 2017 at 9:39 Board Certified Radiologist. This report was verified electronically.
[2017-09-13] MEDS: RIVAROXABAN 15 MG TAB PO SCH (09:57)
[2017-09-13] MEDS: predniSONE 20 MG TAB PO SCH ×2 (09:58→20:12)
[2017-09-13] MEDS: METOPROLOL TARTRATE 25 MG TAB PO SCH (09:58)
[2017-09-13] MEDS: PANTOPRAZOLE SOD 40 MG DELAYED RELEASE TAB PO SCH (09:58)
[2017-09-13] MEDS: DILTIAZEM-CD 180 MG CAP ER PO SCH (09:58)
[2017-09-13] MEDS: FUROSEMIDE 20 MG TAB PO SCH (09:58)
[2017-09-13] MEDS: DOCUSATE SODIUM 100 MG CAP PO SCH ×2 (09:58→20:13)
[2017-09-13] MEDS: FERROUS SULFATE 325 MG (65 MG ELEMENTAL IRON) TAB PO SCH (09:58)
[2017-09-13] MEDS: CALCIUM CARBONATE 1.25 GM (CA 500 MG) TAB PO SCH ×2 (09:58→20:12)
[2017-09-13] MEDS: POTASSIUM CHLORIDE 10 MEQ CONTROLLED RELEASE TAB PO SCH (09:58)
[2017-09-13] MEDS: CEFUROXIME AXETIL 500 MG TAB PO SCH ×2 (09:59→20:12)
[2017-09-13] MEDS: METOPROLOL TARTRATE 50 MG TAB PO SCH (20:12)
--- NOTE | 2017-09-13 20:14 | PD.ID.CON ---
History of Present Illness Service ID Consult Requested By Dr Duarte Reason for Consult leukocytosis Primary Care Physician Riki Duarte MD Diagnoses: History of Present Illness Pt seen , examined full note to follow 81 yo female with rheumatouid arthritis and pulmonary fibrosis poor historian is admitted with respiratory issues and non productive cough SHe is afebrile Her amiodarone was stopped over toxicity concern and she was started on sterriods WBC went up and peaked @ 25 Kk, despite of dose reduction She has no other symptoms and denies other complaints Work upo revealed Staph capitis in 1/4 blood culture bottles, UA with mild pyurin and culture c/w contamination She was starated on ceftin ID was consulted for evaluation of leukocytosis Review of Systems Except as stated in HPI: all other systems reviewed are Neg Past Family Social History Allergies: Coded Allergies: adhesive tape (Verified Allergy, Intermediate, 09/05/17) Uncoded Allergies: narcotics (Allergy, Intermediate, Hives., 09/05/17) Past Medical History 1. COPD. 2. Rheumatoid arthritis. 3. Hypertension. 4. Previous CVA. 5. Paroxysmal atrial fibrillation. 6. Alcohol abuse. Past Surgical History 7. Cervical spine surgery. 8. Tonsillectomy and adenoidectomy as a child. Active Ordered Medications Medications where reviewed in EMR Antibiotics Include: ceftin po Family History reviewed Noncontributory. Social History The patient has a thirty pack/year smoking history; however, has not smoked since 1989. She drinks two glasses of wine a day with dinner. Physical Exam Vital Signs Vital Signs Date Time Temp Pulse Resp B/P (MAP) Pulse Ox O2 Delivery O2 Flow Rate FiO2 09/13/17 18:01 97.6 68 25 138/66 (90) 97 09/13/17 18:00 77 09/13/17 18:00 68 25 97 09/13/17 17:01 66 24 134/56 (82) 99 09/13/17 17:00 66 24 99 09/13/17 16:01 98.0 70 26 142/62 (88) 84 09/13/17 16:00 70 24 86 09/13/17 16:00 77 09/13/17 15:01 66 28 135/63 (87) 99 09/13/17 15:00 66 28 98 09/13/17 14:06 74 3/2/18 14:01 97.9 70 29 138/62 (87) 98 3/2/18 14:00 70 30 98 3/2/18 13:01 72 36 145/57 (86) 94 3/2/18 13:00 72 42 94 3/2/18 12:01 70 23 140/60 (86) 94 3/2/18 12:00 77 3/2/18 12:00 72 17 94 3/2/18 11:01 98.0 70 27 144/61 (88) 100 3//18 11:00 70 27 100 3/2/18 10:01 76 26 139/61 (87) 98 3/2/18 10:00 74 3//18 10:00 74 29 96 /18 09:01 70 23 147/68 (94) 93 18 09:00 70 21 93 //18 08:50 95 Nasal Cannula 6.00 18 08:01 70 27 142/61 (88) 94 /18 08:00 77 09/13/18 08:00 70 24 95 /2/18 07:01 70 28 133/55 (81) 96 3//18 07:00 94 Nasal Cannula 6.00 18 06:01 74 27 138/62 (87) 88 3//18 06:00 74 18 05:01 72 27 127/55 (79) 97 3/2/18 04:01 97.7 74 31 136/62 (86) 92 3/2/18 04:01 74 3/18 02:00 68 26 140/62 (88) 99 18 02:00 68 3//18 01:01 72 24 147/70 (95) 98 3/18 00:01 97.7 70 26 140/65 (90) 92 218 00:00 70 218 00:00 92 Nasal Cannula 6.00 09/12/17 23:01 68 27 147/65 (92) 99 318 22:33 99 Nasal Cannula 6.00 09/12/17 22:01 72 25 150/74 (99) 91 09/12/17 22:00 90 Nasal Cannula 6.00 09/12/17 22:00 72 09/12/17 21:01 72 28 139/59 (85) 97 09/12/17 21:00 93 Nasal Cannula 6.00 Physical Exam CONSTITUTIONAL/GENERAL: This is an adequately nourished frail elderly chronically ill appearing female patient, in no apparent distress. TUBES/LINES/DRAINS: SKIN: No jaundice, rashes, or lesions. Ecchymoses on upper extremities. + skin tear, not infected L lower leg Skin temperature appropriate. Not diaphoretic. HEAD: Atraumatic. Normocephalic. EYES: Pupils equal and round and reactive. Extraocular motions intact. No scleral icterus. No injection or drainage. Fundi not examined. ENT: Hearing grossly normal. Nose without bleeding or purulent drainage. Throat without visible erythema, exudates, masses, or lesions. Oral mucosae dry NECK: Trachea midline. Supple, nontender. No palpable thyroid enlargement or nodularity. CARDIOVASCULAR: Regular rate and rhythm without murmurs, gallops, or rubs. No JVD. Peripheral pulses symmetric. RESPIRATORY/CHEST: Symmetric, unlabored respirations. Clear to auscultation. Breath sounds equal bilaterally. No wheezes, rales, or rhonchi. GASTROINTESTINAL: Abdomen soft, non-tender, nondistended. No hepato-splenomegaly , or palpable masses. No guarding. Bowel sounds present. GENITOURINARY: Without palpable bladder distension. External catheter in place with clear yellow MUSCULOSKELETAL: Extremities without clubbing, cyanosis, or edema. No joint tenderness or effusion noted. No calf tenderness. No mottling or clubbing. LYMPHATICS: No palpable cervical or supraclavicular adenopathy. NEUROLOGICAL: Awake and alert. Oriented x 3 Motor and sensory grossly within normal limits. Follows commands. Clear speech. Moves all extremities. PSYCHIATRIC: No obvious anxiety/depression. no apparent hallucinations or other psychotic thought process. Flat affect Laboratory Laboratory Tests Test 09/13/17 04:25 09/13/17 09:20 White Blood Count 25.4 Red Blood Count 4.05 Hemoglobin 12.2 Hematocrit 36.5 Mean Corpuscular Volume 90.1 Mean Corpuscular Hemoglobin 30.2 Mean Corpuscular Hemoglobin Concent 33.5 Red Cell Distribution Width 13.1 Platelet Count 359 Mean Platelet Volume 8.5 Neutrophils (%) (Auto) 95.8 Lymphocytes (%) (Auto) 0.8 Monocytes (%) (Auto) 3.2 Eosinophils (%) (Auto) 0.1 Basophils (%) (Auto) 0.1 Neutrophils # (Auto) 24.4 Lymphocytes # (Auto) 0.2 Monocytes # (Auto) 0.8 Eosinophils # (Auto) 0.0 Basophils # (Auto) 0.0 CBC Comment DIFF FINAL Differential Comment Blood Urea Nitrogen 35 Creatinine 1.00 Random Glucose 129 Total Protein 6.1 Albumin 2.2 Calcium Level 7.5 Alkaline Phosphatase 63 Aspartate Amino Transf (AST/SGOT) 68 Alanine Aminotransferase (ALT/SGPT) 99 Total Bilirubin 0.9 Sodium Level 141 Potassium Level 4.4 Chloride Level 106 Carbon Dioxide Level 29.5 Anion Gap 6 Estimat Glomerular Filtration Rate 53 Procalcitonin 0.06 Date/Time Source Procedure Growth Status 09/13/17 09:20 Blood Peripheral Aerobic Blood Culture Pending Received 09/13/17 09:20 Blood Peripheral Anaerobic Blood Culture Pending Received 09/05/17 13:55 Nasal Aspirate Influenza Types A,B Antigen (OLAYINKA) - Final NEGATIVE FOR FLU A AND B ANTIGEN.... Complete 09/05/17 23:35 Urine Clean Catch Urine Culture - Final 50-100,000 CFU/ML MIXED TAYA... Complete Result Diagram: 09/13/17 0425 09/13/17 0425 Imaging Last Impressions Chest X-Ray 09/13/17 0000 Signed Impressions: Service Date/Time: Wednesday, September 13, 2017 09:08 - CONCLUSION: No significant change has occurred. Rupesh Holguin MD Chest CT 09/05/17 0000 Signed Impressions: Service Date/Time: August 22:57 - CONCLUSION: 1. Moderate to severe nonspecific chronic interstitial lung disease. 2. Trace bilateral pleural effusions. 3. Upper limits of normal to slightly enlarged mediastinal lymph nodes. 4. Tortuous and atherosclerotic thoracic aorta. No aneurysm. 5. Left atrial enlargement. There is aortic and mitral valve calcification. 6. Increased density liver. Differential includes side effects from medication such as amiodarone and mineral deposition. If the patient has a history of amiodarone use, this may also explain the pulmonary fibrosis findings. 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
[2017-09-14] VITALS (27 sets, daily range): BP systolic 113–131; BP diastolic 50–65; PULSE 64–76; RESP 22–52; TEMP 97.7–98.3; O2SAT 89–99
[2017-09-14] MEDS: RESP: ALBUTEROL 2.5 MG/IPRATROPIUM 0.5 MG NEB (PRN) NEB (04:08)
[2017-09-14 06:17] LABS: BILIRUBIN, URINE NEG (NEG); BLOOD, URINE TRACE (NEG); GLUCOSE,URINE NEG (NEG); KETONE, URINE NEG (NEG); NITRITE,URINE NEG (NEG); URINE COLOR YELLOW (YELLW/STRAW); URINE LEUKOCYTE ESTERASE NEG (NEG)
[2017-09-14 06:35] LABS: SQUAMOUS EPITHELIAL CELL URINE 0-3 /hpf (0-5); WBC, URINE 0-2 /hpf (0-5)
[2017-09-14] MEDS: DOCUSATE SODIUM 100 MG CAP PO SCH ×2 (08:45→20:02)
[2017-09-14] MEDS: DILTIAZEM-CD 180 MG CAP ER PO SCH (08:45)
[2017-09-14] MEDS: [UNRECOGNIZED DRUG - OTHER] PO SCH (08:45)
[2017-09-14] MEDS: ARTIFICIAL TEARS OPTH SOLN 15 ML BTL EACH EYE SCH ×3 (08:46→17:56)
[2017-09-14] MEDS: PANTOPRAZOLE SOD 40 MG DELAYED RELEASE TAB PO SCH (08:46)
[2017-09-14] MEDS: CALCIUM CARBONATE 1.25 GM (CA 500 MG) TAB PO SCH ×2 (08:46→20:02)
[2017-09-14] MEDS: POTASSIUM CHLORIDE 10 MEQ CONTROLLED RELEASE TAB PO SCH (08:46)
[2017-09-14] MEDS: FERROUS SULFATE 325 MG (65 MG ELEMENTAL IRON) TAB PO SCH (08:46)
[2017-09-14] MEDS: RIVAROXABAN 15 MG TAB PO SCH (08:46)
[2017-09-14] MEDS: METOPROLOL TARTRATE 25 MG TAB PO SCH (08:46)
[2017-09-14] MEDS: predniSONE 20 MG TAB PO SCH ×2 (08:46→20:02)
[2017-09-14] MEDS: FUROSEMIDE 20 MG TAB PO SCH (08:46)
--- NOTE | 2017-09-14 16:01 | HHI.PR ---
Subjective Remarks The patient is currently receiving 3 L/m per nasal cannula oxygen. Oxygen saturations are maintaining 93-94%. When she is lying flat saturations will decrease. Appetite is adequate. Bowels are moving. Urine output adequate. The patient was out of bed in a stretcher chair for 6 hours this morning. She is extremely tired. She did refuse her blood draw this morning. Current Medications Medications (Trade) Dose Ordered Sig/Mart Route Start Time Stop Time Status Last Admin (NS Flush) 2 ml UNSCH PRN IVF 09/05/17 13:30 09/12/17 05:52 (Tylenol) 1,000 mg Q6HR PRN PO 09/05/17 20:00 09/13/17 06:38 (Lasix) 20 mg DAILY PO 09/06/17 09:00 Future hold 09/14/17 08:46 (Lopressor) 50 mg HS PO 09/05/17 21:00 09/13/17 20:12 (Lopressor) 75 mg DAILY PO 09/06/17 09:00 09/14/17 08:46 (Xarelto) 15 mg DAILY PO 09/06/17 09:00 09/14/17 08:46 (Cardizem Cd) 180 mg DAILY PO 09/06/17 09:00 09/14/17 08:45 (Ultram) 50 mg Q8HR PRN PO 09/05/17 22:00 09/10/17 11:10 Patient Own Medication PT OWN MED:FYAVOLV 1MG-5... DAILY PO 09/06/17 14:00 09/14/17 08:45 Miscellaneous Information Patient in critical care unit? Ass... Q361D .XX 09/07/17 10:00 09/07/17 10:00 (Protonix) 40 mg DAILY PO 09/07/17 10:00 09/14/17 08:46 (Duoneb Neb) 1 ampule Q2HR NEB PRN NEB 09/07/17 10:00 09/14/17 04:08 (Colace) 100 mg BID PO 09/07/17 14:00 09/14/17 08:45 (Tears Naturale Opth Soln) 1 drop TID EACH EYE 09/09/17 09:00 09/14/17 08:46 (Oscal) 500 mg BID PO 09/09/17 09:00 09/14/17 08:46 (Ferrous Sulfate) 325 mg DAILY PO 09/10/17 09:00 09/14/17 08:46 (KCl) 10 meq DAILY PO 09/12/17 09:00 09/14/17 08:46 (Deltasone) 20 mg BID PO 09/13/17 09:00 09/14/17 08:46 Objective Vital Signs Date Time Temp Pulse Resp B/P (MAP) Pulse Ox O2 Delivery O2 Flow Rate FiO2 09/14/17 15:00 68 27 117/55 (75) 99 09/14/17 14:00 72 09/14/17 14:00 72 26 113/56 (75) 93 09/14/17 13:00 70 52 116/54 (74) 95 09/14/17 12:00 97.8 68 34 115/50 (71) 89 09/14/17 12:00 68 09/14/17 11:00 70 28 121/61 (81) 94 09/14/17 10:00 74 32 126/57 (80) 95 09/14/17 10:00 74 09/14/17 09:00 72 36 122/57 (78) 90 09/14/17 08:40 85 Nasal Cannula 6.00 09/14/17 08:01 97.9 66 25 125/58 (80) 99 09/14/17 08:00 75 09/14/17 07:30 99 Nasal Cannula 4.00 09/14/17 07:30 96 Nasal Cannula 3.00 Humidified 09/14/17 07:01 68 23 115/56 (75) 98 09/14/17 06:01 72 24 113/54 (73) 97 09/14/17 06:00 72 09/14/17 05:01 76 22 125/58 (80) 98 09/14/17 04:01 98.1 68 22 123/58 (79) 96 09/14/17 04:00 68 09/14/17 03:01 64 24 125/58 (80) 99 09/14/17 02:01 68 22 125/62 (83) 89 09/14/17 02:00 66 09/14/17 01:01 66 25 122/57 (78) 98 09/14/17 00:01 97.7 68 24 130/62 (84) 92 09/14/17 00:00 68 09/13/17 23:01 66 24 140/66 (90) 97 09/13/17 22:01 64 28 145/74 (97) 99 09/13/17 22:00 66 09/13/17 21:01 66 25 137/62 (87) 96 09/13/17 20:40 97 Nasal Cannula 3.00 09/13/17 20:01 98.2 68 26 125/59 (81) 93 09/13/17 20:00 96 Nasal Cannula 3.00 32 09/13/17 20:00 67 09/13/17 18:01 97.6 68 25 138/66 (90) 97 09/13/17 18:00 77 09/13/17 18:00 68 25 97 09/13/17 17:01 66 24 134/56 (82) 99 09/13/17 17:00 66 24 99 09/13/17 16:01 98.0 70 26 142/62 (88) 84 09/13/17 16:00 70 24 86 09/13/17 16:00 77 I/O 09/13/17 09/13/17 09/13/17 09/14/17 09/14/17 09/14/17 07:00 15:00 23:00 07:00 15:00 23:00 Intake Total 717 ml 400 ml 360 ml Output Total 650 ml Balance 717 ml 400 ml -290 ml Intake Oral 480 ml 400 ml 360 ml Oral Supplement 237 ml Output Urine Total 650 ml # Voids 2 4 # Bowel Movements 1 0 Cardiovascular: Regular rate and rhythm with systolic murmur Lungs: Scattered fibrotic rales and wheezes or rhonchi Abdomen: Mild distention, soft, nontender with active bowel sounds Result Diagram: 09/13/17 0425 09/13/17 0425 Assessment and Plan Problem List: (1) Leukocytosis ICD Codes: D72.829 - Elevated white blood cell count, unspecified Status: Acute Plan: I appreciate infectious disease consult. No evidence of any infection at this time. Patient refused blood draw this morning but agrees to let draw tomorrow morning. Will follow white blood cell count as we continue to wean the steroids. Completing course of Ceftin. Blood cultures are pending. Chest x-ray was negative. (2) Acute idiopathic pulmonary fibrosis ICD Codes: J84.112 - Idiopathic pulmonary fibrosis Status: Acute Plan: Continue wean oral steroids Continue with nebulizer treatments. Oxygen now at 3 L/m per nasal cannula. (3) Paroxysmal atrial fibrillation ICD Codes: I48.0 - Paroxysmal atrial fibrillation Status: Chronic Plan: Patient remains in sinus rhythm. Continue anticoagulation (4) Abnormal LFTs ICD Codes: R94.5 - Abnormal results of liver function studies Status: Chronic Plan: LFTs are essentially stable. Will follow. Further workup once patient is medically stable. (5) Rheumatoid arthritis ICD Codes: M06.9 - Rheumatoid arthritis, unspecified Status: Chronic Plan: Patient has extensive joint deformities and disability. Tylenol and Tramadol prn. (6) Hypertension ICD Codes: I10 - Hypertension Status: Chronic Plan: Blood pressure under adequate control with current medications (7) Bacteremia ICD Codes: R78.81 - Bacteremia Status: Resolved Plan: Blood cultures were positive for Staphylococcus capitis which is a skin andrzej and likely contaminant. (8) Hypocalcemia ICD Codes: E83.51 - Hypocalcemia Status: Acute Plan: Calcium level improving. Continue with calcium carbonate. (9) At high risk for deep venous thrombosis ICD Codes: Z91.89 - Other specified personal risk factors, not elsewhere classified Status: Acute Plan: Patient is currently receiving Xarelto (10) Hyperlipidemia ICD Codes: E78.5 - Hyperlipidemia, unspecified Status: Chronic Plan: Statin discontinued due to abnormal LFT's Discharge Planning Plan to discharge patient to [facility] on Saturday. Patient transferred to intermediate care. Problem Qualifiers (1) Leukocytosis: Qualified Codes: D72.829 - Elevated white blood cell count, unspecified (2) Rheumatoid arthritis: (3) Hypertension: Qualified Codes: I10 - Essential (primary) hypertension (4) Hyperlipidemia: Qualified Codes: E78.2 - Mixed hyperlipidemia Riki Duarte MD Sep 14, 2017 16:00
--- NOTE | 2017-09-14 16:03 | HHI.FF ---
Face to Face Verification Diagnosis: (1) Acute ischemic right MCA stroke (2) Paroxysmal atrial fibrillation (3) Hypertension (4) Hypoxemia (5) Hyperlipidemia (6) Abnormal LFTs Physical Therapy Order: Evaluate and Treat Instructions: Improved mobility and transfers. Occupational Therapy Order: Evaluate and Treat, Improve ADL Home Health Nursing Order: Signs/symptoms of disease process Oxygen administration education Nursing assessment with vital signs Home Health Aide Order: To Assist In: Bathing and personal care I have seen patient Kennedi López on 09/14/17. My clinical findings support the need for the requested home health care services because: Ltd mobility - disease progression Deconditioned w/ increased weakness Limited ability to care for self I certify that my clinical findings support that this patient is homebound because: Hx COPD- exertion dyspnea/weakness Nqc-[id number]-fwoixnrd bed/chair Unable to use public transportation Riki Duarte MD Sep 14, 2017 16:03
--- NOTE | 2017-09-14 16:27 | HHI.PR ---
Subjective Remarks 81 YOWF with PAF,PF,RA,CVA has mild wheezing On 3 LNC Weak, mild sob No fever Objective Vital Signs Vital Signs Date Time Temp Pulse Resp B/P (MAP) Pulse Ox O2 Delivery O2 Flow Rate FiO2 09/14/17 15:30 96 Nasal Cannula 3.00 18 15:00 68 27 117/55 (75) 99 18 14:00 72 18 14:00 72 26 113/56 (75) 93 09/14/17 13:00 70 52 116/54 (74) 95 09/14/17 12:00 97.8 68 34 115/50 (71) 89 09/14/17 12:00 68 09/14/17 11:00 70 28 121/61 (81) 94 09/14/17 10:00 74 32 126/57 (80) 95 09/14/17 10:00 74 09/14/17 09:00 72 36 122/57 (78) 90 09/14/17 08:40 85 Nasal Cannula 6.00 09/14/17 08:01 97.9 66 25 125/58 (80) 99 09/14/17 08:00 75 09/14/17 07:30 99 Nasal Cannula 4.00 09/14/17 07:30 96 Nasal Cannula 3.00 Humidified 09/14/17 07:01 68 23 115/56 (75) 98 09/14/17 06:01 72 24 113/54 (73) 97 09/14/17 06:00 72 18 05:01 76 22 125/58 (80) 98 18 04:01 98.1 68 22 123/58 (79) 96 18 04:00 68 18 03:01 64 24 125/58 (80) 99 18 02:01 68 22 125/62 (83) 89 18 02:00 66 18 01:01 66 25 122/57 (78) 98 18 00:01 97.7 68 24 130/62 (84) 92 09/14/17 00:00 68 18 23:01 66 24 140/66 (90) 97 09/13/17 22:01 64 28 145/74 (97) 99 09/13/17 22:00 66 09/13/17 21:01 66 25 137/62 (87) 96 09/13/17 20:40 97 Nasal Cannula 3.00 09/13/17 20:01 98.2 68 26 125/59 (81) 93 09/13/17 20:00 96 Nasal Cannula 3.00 32 09/13/17 20:00 67 09/13/17 18:01 97.6 68 25 138/66 (90) 97 09/13/17 18:00 77 09/13/17 18:00 68 25 97 09/13/17 17:01 66 24 134/56 (82) 99 09/13/17 17:00 66 24 99 I/O 09/13/17 09/13/17 09/13/17 09/14/17 09/14/17 09/14/17 07:00 15:00 23:00 07:00 15:00 23:00 Intake Total 717 ml 400 ml 360 ml Output Total 650 ml Balance 717 ml 400 ml -290 ml Intake Oral 480 ml 400 ml 360 ml Oral Supplement 237 ml Output Urine Total 650 ml # Voids 2 4 # Bowel Movements 1 0 Result Diagram: 09/13/17 0425 09/13/17 0425 Objective Remarks GENERAL: frail elderly female, mild sob SKIN: Warm and dry. HEAD: Normocephalic. EYES: No scleral icterus. No injection or drainage. NECK: Supple, trachea midline. No JVD or lymphadenopathy. CARDIOVASCULAR: Regular rate and rhythm without murmurs, gallops, or rubs. RESPIRATORY: Breath sounds equal bilaterally. No accessory muscle use. Insp rales GASTROINTESTINAL: Abdomen soft, non-tender, nondistended. MUSCULOSKELETAL: No cyanosis, or edema. BACK: Nontender without obvious deformity. No CVA tenderness. A/P Assessment and Plan PF COPD RA CVA PAF PLAN: Aerosol nebs Symbicort 2 puffs bid Supplement 02 PO prednisone xarelto 15 mg daily. Nilson Zepeda MD Sep 14, 2017 16:27
[2017-09-14] MEDS: METOPROLOL TARTRATE 50 MG TAB PO SCH (20:02)
[2017-09-15] VITALS (12 sets, daily range): BP systolic 112–141; BP diastolic 56–68; PULSE 61–74; RESP 23–30; TEMP 97.8–98.6; O2SAT 65–99
[2017-09-15 05:42] LABS: BASOPHIL # 0.4 TH/MM3 (0-0.2); BASOPHIL % 1.2 % (0.0-2.0); HEMATOCRIT 31.8 % (35.0-46.0); LYMPH % 1.1 % (9.0-44.0); LYMPHOCYTE # 0.3 TH/MM3 (1.0-4.8); MEAN CELL VOLUME 91.8 FL (80.0-100.0); MEAN CORPUSCULAR HEMOGLOBIN 31.6 PG (27.0-34.0); MEAN CORPUSCULAR HGB CONC 34.5 % (32.0-36.0); MONO % 5.7 % (0.0-8.0); MONOCYTE # 1.7 TH/MM3 (0-0.9); PLATELET COUNT 338 TH/MM3 (150-450); RED BLOOD COUNT 3.47 MIL/MM3 (4.00-5.30); RED CELL DISTRIBUTION WIDTH 13.9 % (11.6-17.2); WHITE BLOOD COUNT 30.4 TH/MM3 (4.0-11.0)
[2017-09-15 06:06] LABS: ALBUMIN 1.8 GM/DL (3.4-5.0); BICARBONATE 29.5 MEQ/L (21.0-32.0); CALCIUM 7.2 MG/DL (8.5-10.1); CALCIUM-PROTEIN CORRECTED 8.3 MG/DL (8.5-10.1); CREATININE 0.73 MG/DL (0.50-1.00); TOTAL BILIRUBIN ADULT 0.8 MG/DL (0.2-1.0); TOTAL PROTEIN 5.1 GM/DL (6.4-8.2)
[2017-09-15 06:31] LABS: BANDS 1 % (0-6); LYMPHOCYTES 2 % (9-44); MONOCYTES 4 % (0-8); NEUTROPHIL # MANUAL DIFF 28.6 TH/MM3 (1.8-7.7); POLYS (SEG NEUTROPHILS) 93 % (16-70)
[2017-09-15] MEDS: DOCUSATE SODIUM 100 MG CAP PO SCH ×2 (09:00→19:39)
--- NOTE | 2017-09-15 09:11 | HHI.PR ---
Subjective Remarks Patient reports that she is feeling fatigued today. Her oxygen saturations remained >90% on 3 L/m per nasal cannula. The patient denies any cough or sputum production. Appetite is good. Had a bowel movement this morning. Stools are pasty but not loose. Denies abdominal pain. Urine output is adequate. She remains afebrile. She was out of bed in a stretcher chair yesterday. Current Medications Medications (Trade) Dose Ordered Sig/Mart Route Start Time Stop Time Status Last Admin (NS Flush) 2 ml UNSCH PRN IVF 09/05/17 13:30 09/12/17 05:52 (Tylenol) 1,000 mg Q6HR PRN PO 09/05/17 20:00 09/13/17 06:38 (Lasix) 20 mg DAILY PO 09/06/17 09:00 Future hold 09/14/17 08:46 (Lopressor) 50 mg HS PO 09/05/17 21:00 09/14/17 20:02 (Lopressor) 75 mg DAILY PO 09/06/17 09:00 09/14/17 08:46 (Xarelto) 15 mg DAILY PO 09/06/17 09:00 09/14/17 08:46 (Cardizem Cd) 180 mg DAILY PO 09/06/17 09:00 09/14/17 08:45 (Ultram) 50 mg Q8HR PRN PO 09/05/17 22:00 09/10/17 11:10 Patient Own Medication PT OWN MED:FYAVOLV 1MG-5... DAILY PO 09/06/17 14:00 09/14/17 08:45 Miscellaneous Information Patient in critical care unit? Ass... Q361D .XX 09/07/17 10:00 09/07/17 10:00 (Protonix) 40 mg DAILY PO 09/07/17 10:00 09/14/17 08:46 (Duoneb Neb) 1 ampule Q2HR NEB PRN NEB 09/07/17 10:00 09/14/17 04:08 (Colace) 100 mg BID PO 09/07/17 14:00 09/14/17 20:02 (Tears Naturale Opth Soln) 1 drop TID EACH EYE 09/09/17 09:00 09/14/17 08:46 (Oscal) 500 mg BID PO 09/09/17 09:00 09/14/17 20:02 (Ferrous Sulfate) 325 mg DAILY PO 09/10/17 09:00 09/14/17 08:46 (KCl) 10 meq DAILY PO 09/12/17 09:00 09/14/17 08:46 (Deltasone) 20 mg DAILY PO 09/16/17 09:00 Objective Vital Signs Date Time Temp Pulse Resp B/P (MAP) Pulse Ox O2 Delivery O2 Flow Rate FiO2 09/15/17 08:20 93 Nasal Cannula 3.00 09/15/17 07:00 92 Nasal Cannula 4.00 09/15/17 04:00 66 09/15/17 03:48 98.1 68 30 141/68 (92) 99 09/15/17 00:00 68 09/14/17 23:47 98.3 68 29 131/65 (87) 98 09/14/17 22:00 92 Nasal Cannula 3.00 09/14/17 20:00 76 09/14/17 19:12 97.8 74 29 115/53 (73) 93 09/14/17 19:00 Nasal Cannula 4.00 09/14/17 16:00 72 09/14/17 16:00 98.1 72 29 118/57 (77) 94 09/14/17 15:30 96 Nasal Cannula 3.00 09/14/17 15:00 68 27 117/55 (75) 99 09/14/17 14:00 72 09/14/17 14:00 72 26 113/56 (75) 93 09/14/17 13:00 70 52 116/54 (74) 95 09/14/17 12:00 97.8 68 34 115/50 (71) 89 09/14/17 12:00 68 09/14/17 11:00 70 28 121/61 (81) 94 09/14/17 10:00 74 32 126/57 (80) 95 09/14/17 10:00 74 I/O 09/14/17 09/14/17 09/14/17 09/15/17 09/15/17 09/15/17 07:00 15:00 23:00 07:00 15:00 23:00 Intake Total 360 ml 800 ml Output Total 650 ml 500 ml 400 ml Balance -290 ml 300 ml -400 ml Intake Oral 360 ml 800 ml Output Urine Total 650 ml 500 ml 400 ml # Bowel Movements 0 1 Neck: Supple without lymphadenopathy or JVD Cardiovascular: Regular rhythm with systolic murmur Lungs: Scattered fibrotic brawls to no wheezes or rhonchi. Good air exchange. Abdomen: Soft, mildly distended, bowel sounds present, no masses palpable, nontender Extremities: The bilateral feet show 1+ edema. No calf tenderness or Homans sign Skin: Intact Result Diagram: 09/15/1752909/15/17529 Assessment and Plan Problem List: (1) Leukocytosis ICD Codes: D72.829 - Elevated white blood cell count, unspecified Status: Acute Plan: The patient's white blood cell count is higher today. Reviewing her most recent studies, there was no evidence of pulmonary infiltrate. Urinalysis reveals occasional yeast. Culture was not indicated. The patient does not have diarrhea so likelihood of C. difficile colitis is low. I'm suspicious patient may have fungal UTI Based on the presence of yeast in her urine. We'll begin fluconazole IV. Will follow with blood cell count. (2) Acute idiopathic pulmonary fibrosis ICD Codes: J84.112 - Idiopathic pulmonary fibrosis Status: Acute Plan: Had decreased oral steroids to prednisone 20 mg daily. Continue with supplement oxygen and nebulizer treatments. Out of bed as much as possible. (3) Paroxysmal atrial fibrillation ICD Codes: I48.0 - Paroxysmal atrial fibrillation Status: Chronic Plan: Patient remains in sinus rhythm. Continue anticoagulation (4) Abnormal LFTs ICD Codes: R94.5 - Abnormal results of liver function studies Status: Chronic Plan: LFTs are little higher. Could be due to some passive congestion. Will follow. (5) Rheumatoid arthritis ICD Codes: M06.9 - Rheumatoid arthritis, unspecified Status: Chronic Plan: Patient has extensive joint deformities and disability. Tylenol and Tramadol prn. (6) Hypertension ICD Codes: I10 - Hypertension Status: Chronic Plan: Blood pressure under adequate control with current medications (7) Hypocalcemia ICD Codes: E83.51 - Hypocalcemia Status: Acute Plan: Calcium level improving. Continue with calcium carbonate. (8) At high risk for deep venous thrombosis ICD Codes: Z91.89 - Other specified personal risk factors, not elsewhere classified Status: Acute Plan: Patient is currently receiving Xarelto (9) Hyperlipidemia ICD Codes: E78.5 - Hyperlipidemia, unspecified Status: Chronic Plan: Statin discontinued due to abnormal LFT's (10) Bacteremia ICD Codes: R78.81 - Bacteremia Status: Resolved Plan: Blood cultures were positive for Staphylococcus capitis which is a skin andrzej and likely contaminant. Problem Qualifiers (1) Leukocytosis: Qualified Codes: D72.829 - Elevated white blood cell count, unspecified (2) Rheumatoid arthritis: (3) Hypertension: Qualified Codes: I10 - Essential (primary) hypertension (4) Hyperlipidemia: Qualified Codes: E78.2 - Mixed hyperlipidemia Riki Duarte MD Sep 15, 2017 09:11
[2017-09-15] MEDS: FERROUS SULFATE 325 MG (65 MG ELEMENTAL IRON) TAB PO SCH (09:16)
[2017-09-15] MEDS: CALCIUM CARBONATE 1.25 GM (CA 500 MG) TAB PO SCH ×2 (09:17→19:39)
[2017-09-15] MEDS: RIVAROXABAN 15 MG TAB PO SCH (09:17)
[2017-09-15] MEDS: DILTIAZEM-CD 180 MG CAP ER PO SCH (09:17)
[2017-09-15] MEDS: POTASSIUM CHLORIDE 10 MEQ CONTROLLED RELEASE TAB PO SCH (09:19)
[2017-09-15] MEDS: METOPROLOL TARTRATE 25 MG TAB PO SCH (09:19)
[2017-09-15] MEDS: PANTOPRAZOLE SOD 40 MG DELAYED RELEASE TAB PO SCH (09:19)
[2017-09-15] MEDS: ARTIFICIAL TEARS OPTH SOLN 15 ML BTL EACH EYE SCH ×3 (09:20→18:08)
[2017-09-15] MEDS: [UNRECOGNIZED DRUG - OTHER] PO SCH (09:20)
[2017-09-15] MEDS: FUROSEMIDE 40 MG TAB PO SCH (09:23)
[2017-09-15] MEDS: FLUCONAZOLE 100 MG PREMIX BAG 50 ML IV SCH (12:33)
--- NOTE | 2017-09-15 17:55 | HHI.PR ---
Subjective Remarks 81 YOWF with PAF,PF,RA,CVA has mild wheezing On 3 LNC Weak, mild sob No fever Up in chair Started Diflucan. Objective Vital Signs Vital Signs Date Time Temp Pulse Resp B/P (MAP) Pulse Ox O2 Delivery O2 Flow Rate FiO2 09/15/17 16:00 98.6 68 27 126/64 (84) 96 09/15/17 16:00 68 09/15/17 12:00 97.8 70 23 117/68 (84) 92 09/15/17 12:00 70 09/15/17 08:20 93 Nasal Cannula 3.00 09/15/17 08:00 98.6 69 28 125/56 (79) 92 09/15/17 08:00 69 09/15/17 07:00 92 Nasal Cannula 4.00 09/15/17 04:00 66 09/15/17 03:48 98.1 68 30 141/68 (92) 99 09/15/17 00:00 68 09/14/17 23:47 98.3 68 29 131/65 (87) 98 09/14/17 22:00 92 Nasal Cannula 3.00 09/14/17 20:00 76 09/14/17 19:12 97.8 74 29 115/53 (73) 93 09/14/17 19:00 Nasal Cannula 4.00 I/O 09/14/17 09/14/17 09/14/17 09/15/17 09/15/17 09/15/17 07:00 15:00 23:00 07:00 15:00 23:00 Intake Total 360 ml 800 ml Output Total 650 ml 500 ml 400 ml Balance -290 ml 300 ml -400 ml Intake Oral 360 ml 800 ml Output Urine Total 650 ml 500 ml 400 ml # Bowel Movements 0 1 Result Diagram: 09/15/17 0530 09/15/17 0530 Objective Remarks GENERAL: frail elderly female, mild sob SKIN: Warm and dry. HEAD: Normocephalic. EYES: No scleral icterus. No injection or drainage. NECK: Supple, trachea midline. No JVD or lymphadenopathy. CARDIOVASCULAR: Regular rate and rhythm without murmurs, gallops, or rubs. RESPIRATORY: Breath sounds equal bilaterally. No accessory muscle use. Insp rales GASTROINTESTINAL: Abdomen soft, non-tender, nondistended. MUSCULOSKELETAL: No cyanosis, or edema. BACK: Nontender without obvious deformity. No CVA tenderness. A/P Assessment and Plan PF COPD RA CVA PAF PLAN: Aerosol nebs Symbicort 2 puffs bid Supplement 02 PO prednisone Xarelto [address] Oscar will FU in Nilson Zepeda MD Sep 15, 2017 17:55
[2017-09-15] MEDS: METOPROLOL TARTRATE 50 MG TAB PO SCH (19:41)
[2017-09-15] MEDS ORDERED: FUROSEMIDE 40 MG/4 ML VIAL ONE (21:23)
[2017-09-15] MEDS ORDERED: LORazepam 2 MG/ML VIAL ONE (21:44)
[2017-09-15] MEDS ORDERED: LORazepam 2 MG/ML VIAL IV ONE (22:15)
[2017-09-15] MEDS ORDERED: methylPREDNISolone SOD SUCC 125 MG/2 ML VIAL IV SCH (23:00)
[2017-09-16] VITALS (19 sets, daily range): BP systolic 94–148; BP diastolic 49–69; PULSE 66–80; RESP 19–50; TEMP 97.1–98; O2SAT 89–100
[2017-09-16] MEDS ORDERED: LORazepam 2 MG/ML VIAL IV PRN (00:15)
[2017-09-16 04:44] LABS: BASOPHIL % 3.6 % (0.0-2.0); HEMATOCRIT 35.6 % (35.0-46.0); HEMOGLOBIN 11.6 GM/DL (11.6-15.3); LYMPH % 1.7 % (9.0-44.0); LYMPHOCYTE # 0.5 TH/MM3 (1.0-4.8); MEAN CELL VOLUME 91.3 FL (80.0-100.0); MEAN CORPUSCULAR HEMOGLOBIN 29.8 PG (27.0-34.0); MEAN CORPUSCULAR HGB CONC 32.7 % (32.0-36.0); MEAN PLATELET VOLUME 8.2 FL (7.0-11.0); MONO % 1.5 % (0.0-8.0); MONOCYTE # 0.4 TH/MM3 (0-0.9); NEUT % 93.2 % (16.0-70.0); PLATELET COUNT 372 TH/MM3 (150-450); RED CELL DISTRIBUTION WIDTH 13.4 % (11.6-17.2); WHITE BLOOD COUNT 28.9 TH/MM3 (4.0-11.0)
[2017-09-16 05:59] LABS: ALBUMIN 1.9 GM/DL (3.4-5.0); BICARBONATE 32.5 MEQ/L (21.0-32.0); CALCIUM 7.4 MG/DL (8.5-10.1); CALCIUM-PROTEIN CORRECTED 8.3 MG/DL (8.5-10.1); CREATININE 0.97 MG/DL (0.50-1.00); TOTAL BILIRUBIN ADULT 1.1 MG/DL (0.2-1.0); TOTAL PROTEIN 5.5 GM/DL (6.4-8.2)
[2017-09-16] MEDS: ARTIFICIAL TEARS OPTH SOLN 15 ML BTL EACH EYE SCH ×3 (08:06→18:00)
[2017-09-16] MEDS: [UNRECOGNIZED DRUG - OTHER] PO SCH (08:06)
[2017-09-16] MEDS: DILTIAZEM-CD 180 MG CAP ER PO SCH (08:07)
[2017-09-16] MEDS: DOCUSATE SODIUM 100 MG CAP PO SCH ×3 (08:07→20:54)
[2017-09-16] MEDS: FERROUS SULFATE 325 MG (65 MG ELEMENTAL IRON) TAB PO SCH (08:08)
[2017-09-16] MEDS: FUROSEMIDE 40 MG TAB PO SCH (08:08)
[2017-09-16] MEDS: CALCIUM CARBONATE 1.25 GM (CA 500 MG) TAB PO SCH ×2 (08:08→20:50)
[2017-09-16] MEDS: POTASSIUM CHLORIDE 10 MEQ CONTROLLED RELEASE TAB PO SCH (08:08)
[2017-09-16] MEDS: RIVAROXABAN 15 MG TAB PO SCH (08:09)
[2017-09-16] MEDS: PANTOPRAZOLE SOD 40 MG DELAYED RELEASE TAB PO SCH (08:09)
[2017-09-16] MEDS: METOPROLOL TARTRATE 25 MG TAB PO SCH (08:11)
--- NOTE | 2017-09-16 08:36 | HHI.PR ---
Subjective Remarks Had recurrent hypoxemia last night. Oxygen saturations decreased to the 70s. Was placed on a nonrebreather mask. Oxygen saturations improved with that level of support oxygen, however, patient refused the mass. High flow oxygen was tried but was inadequate to patient had refused the mask but now is complying. Oxygen saturations 95-99%. Denies any cough or shortness of breath with oxygen in place. Has had no chest pain. BNP stable. She is experiencing lower extremity edema. I did give her additional Lasix 40 mg IV last night. She also received Solu-Medrol 125 mg IV. Patient is hungry this morning. Requesting diet be changed to regular diet as she wants to eat mosley. Blood pressure and heart rate are well controlled. Urine output remains good. Bowels are moving. Denies any pain. Current Medications Medications (Trade) Dose Ordered Sig/Mart Route Start Time Stop Time Status Last Admin (NS Flush) 2 ml UNSCH PRN IVF 09/05/17 13:30 09/12/17 05:52 (Tylenol) 1,000 mg Q6HR PRN PO 09/05/17 20:00 09/13/17 06:38 (Lopressor) 50 mg HS PO 09/05/17 21:00 09/15/17 19:41 (Lopressor) 75 mg DAILY PO 09/06/17 09:00 09/16/17 08:11 (Xarelto) 15 mg DAILY PO 09/06/17 09:00 09/16/17 08:09 (Cardizem Cd) 180 mg DAILY PO 09/06/17 09:00 09/16/17 08:07 (Ultram) 50 mg Q8HR PRN PO 09/05/17 22:00 09/10/17 11:10 Patient Own Medication PT OWN MED:FYAVOLV 1MG-5... DAILY PO 09/06/17 14:00 09/16/17 08:06 Miscellaneous Information Patient in critical care unit? Ass... Q361D .XX 09/07/17 10:00 09/07/17 10:00 (Protonix) 40 mg DAILY PO 09/07/17 10:00 09/16/17 08:09 (Duoneb Neb) 1 ampule Q2HR NEB PRN NEB 09/07/17 10:00 09/14/17 04:08 (Colace) 100 mg BID PO 09/07/17 14:00 09/15/17 19:39 (Tears Naturale Opth Soln) 1 drop TID EACH EYE 09/09/17 09:00 09/16/17 08:06 (Oscal) 500 mg BID PO 09/09/17 09:00 09/16/17 08:08 (Ferrous Sulfate) 325 mg DAILY PO 09/10/17 09:00 09/16/17 08:08 (KCl) 10 meq DAILY PO 09/12/17 09:00 09/16/17 08:08 (Deltasone) 20 mg DAILY PO 09/16/17 09:00 09/16/17 08:08 Fluconazole/ Sodium Chloride 50 ml @ 50 mls/hr Q24H IV 09/15/17 11:00 09/15/17 12:33 (Lasix) 40 mg DAILY PO 09/15/17 10:00 09/16/17 08:08 (Ativan Inj) 0.5 mg Q4H PRN IV 09/16/17 00:15 Objective Vital Signs Date Time Temp Pulse Resp B/P (MAP) Pulse Ox O2 Delivery O2 Flow Rate FiO2 09/16/17 05:00 66 23 114/54 (74) 99 09/16/17 04:00 66 09/16/17 04:00 97.1 66 34 121/52 (75) 100 09/16/17 00:00 97.8 70 29 118/57 (77) 100 09/16/17 00:00 70 09/15/17 23:32 74 24 112/57 (75) 65 09/15/17 23:15 80 High Flow Nasal Cannula 25.00 100 09/15/17 20:45 95 Non-Rebreather 15.00 09/15/17 20:00 70 09/15/17 19:48 97.9 74 29 124/57 (79) 94 09/15/17 19:00 94 Nasal Cannula 6.00 09/15/17 16:00 98.6 68 27 126/64 (84) 96 09/15/17 16:00 68 09/15/17 12:00 97.8 70 23 117/68 (84) 92 09/15/17 12:00 70 I/O 09/15/17 09/15/17 09/15/17 09/16/17/5/18 3/5/18 07:00 15:00 23:00 07:00 15:00 23:00 Intake Total 600 ml Output Total 400 ml 600 ml 750 ml Balance -400 ml 0 ml -750 ml Intake Oral 600 ml Output Urine Total 400 ml 600 ml 750 ml # Voids 3 # Bowel Movements 1 Cardiovascular: Regular rhythm with systolic murmur Lungs: Scattered fibrotic rales but no wheezes or rhonchi. Good air exchange Abdomen: Soft, mildly distended, bowel sounds present, no masses palpable Lower extremities: Bilateral feet reveal 2+ edema. No calf tenderness or Homans sign. Result Diagram: 09/16/1742409/16/17424 Assessment and Plan Problem List: (1) Acute idiopathic pulmonary fibrosis ICD Codes: J84.112 - Idiopathic pulmonary fibrosis Status: Acute Plan: Patient had a recurrence of the severe hypoxemia. No evidence of any pulmonary edema. We'll repeat chest x-ray today. I have resumed IV Solu- Medrol and nebulizer treatments. Patient currently receiving 100% nonrebreather mask with oxygen saturations within acceptable range. (2) Leukocytosis ICD Codes: D72.829 - Elevated white blood cell count, unspecified Status: Acute Plan: White blood cell count has decreased slightly since yesterday. I did start Diflucan IV yesterday. No obvious source of infection. Urine did reveal some yeast, therefore, Diflucan should cover this. Blood cultures are negative. Urinalysis was negative. (3) Paroxysmal atrial fibrillation ICD Codes: I48.0 - Paroxysmal atrial fibrillation Status: Chronic Plan: Patient remains in sinus rhythm. Continue anticoagulation (4) Abnormal LFTs ICD Codes: R94.5 - Abnormal results of liver function studies Status: Chronic Plan: LFTs are little higher. We'll need to evaluate when patient is more stable. (5) Rheumatoid arthritis ICD Codes: M06.9 - Rheumatoid arthritis, unspecified Status: Chronic Plan: Patient has extensive joint deformities and disability. Tylenol and Tramadol prn. (6) Hypertension ICD Codes: I10 - Hypertension Status: Chronic Plan: Blood pressure under adequate control with current medications (7) Hypocalcemia ICD Codes: E83.51 - Hypocalcemia Status: Acute Plan: Calcium level improving. Continue with calcium carbonate. (8) At high risk for deep venous thrombosis ICD Codes: Z91.89 - Other specified personal risk factors, not elsewhere classified Status: Acute Plan: Patient is currently receiving Xarelto (9) Hyperlipidemia ICD Codes: E78.5 - Hyperlipidemia, unspecified Status: Chronic Plan: Statin discontinued due to abnormal LFT's Problem Qualifiers (1) Leukocytosis: Qualified Codes: D72.829 - Elevated white blood cell count, unspecified (2) Rheumatoid arthritis: (3) Hypertension: Qualified Codes: I10 - Essential (primary) hypertension (4) Hyperlipidemia: Qualified Codes: E78.2 - Mixed hyperlipidemia Riki Duarte MD Sep 16, 2017 08:36
[2017-09-16] MEDS: methylPREDNISolone SOD SUCC 40 MG/1 ML VIAL IV PUSH SCH ×4 (09:00→20:50)
[2017-09-16] MEDS ORDERED: predniSONE 20 MG TAB PO SCH (09:00)
[2017-09-16] MEDS: RESP: ALBUTEROL 2.5 MG/IPRATROPIUM 0.5 MG NEB (SCH) NEB ×3 (09:31→21:00)
--- NOTE | 2017-09-16 09:54 | RADRPT ---
EXAM DATE/TIME: 09/16/2017 09:31 [facility] COMPARISON: CHEST SINGLE AP, September 13, 2017, 9:08. INDICATIONS : Short of breath. MEDICAL HISTORY : Congestive heart failure. Hypercholesterolemia. Rheumatoid arthritis. SURGICAL HISTORY : Fusion, cervical. Tubal ligation. Right shoulder. D&C. ENCOUNTER: Subsequent ACUITY: 1 week PAIN SCORE: 0/10 LOCATION: Bilateral chest FINDINGS: Hyperinflation is present with coarse interstitial changes in both lungs and apical pleural thickenin g. Findings are stable in interval. No pneumothorax. Previous surgery about the left shoulder. CONCLUSION: Stable chest Kuldeep Hong MD FACR on September 16, 2017 at 9:52 Board Certified Radiologist. This report was verified electronically.
[2017-09-16] MEDS: traMADol HCL 50 MG TAB PO PRN ×2 (10:13→16:42)
[2017-09-16] MEDS: FLUCONAZOLE 100 MG PREMIX BAG 50 ML IV SCH ×2 (10:14→20:12)
--- NOTE | 2017-09-16 20:29 | HHI.PR ---
Addendum to Inpatient Note Additional Information seen today around 8 pm full note to follow Jennifer Billings MD Sep 16, 2017 20:29
[2017-09-16] MEDS: METOPROLOL TARTRATE 50 MG TAB PO SCH (21:00)
--- NOTE | 2017-09-16 23:55 | HHI.IDPN ---
Subjective Subjective Remarks Deleayd entry Pt was seen earlier today she is afebrile she denies any pain No diarrhea WBC sligfhly better + cough Antibiotics fluconazole Allergies: Coded Allergies: adhesive tape (Verified Allergy, Intermediate, 09/05/17) Uncoded Allergies: narcotics (Allergy, Intermediate, Hives., 09/05/17) Objective . Vital Signs Date Time Temp Pulse Resp B/P (MAP) Pulse Ox O2 Delivery O2 Flow Rate FiO2 09/16/17 22:01 76 24 94/49 (64) 100 09/16/17 21:01 74 24 106/54 (71) 98 09/16/17 21:00 97 Nasal Cannula 3.00 09/16/17 20:00 98.0 76 24 99/52 (68) 100 09/16/17 19:00 80 25 117/61 (79) 89 09/16/17 16:00 98.0 74 48 100/51 (67) 93 09/16/17 16:00 74 09/16/17 15:00 70 50 112/54 (73) 97 09/16/17 14:24 25 09/16/17 14:00 68 25 102/52 (69) 99 09/16/17 13:00 97.9 70 24 104/55 (71) 97 09/16/17 12:00 68 09/16/17 12:00 68 21 115/57 (76) 95 09/16/17 11:00 70 26 123/57 (79) 94 09/16/17 10:00 92 Nasal Cannula 4.00 09/16/17 10:00 74 22 129/65 (86) 92 09/16/17 09:54 94 Nasal Cannula 6.00 09/16/17 09:00 78 19 148/69 (95) 89 09/16/17 08:00 70 09/16/17 08:00 97.6 70 26 118/63 (81) 99 09/16/17 07:00 96 Non-Rebreather 15.00 09/16/17 07:00 68 30 111/52 (71) 100 09/16/17 05:00 66 23 114/54 (74) 99 09/16/17 04:00 66 09/16/17 04:00 97.1 66 34 121/52 (75) 100 09/16/17 00:00 97.8 70 29 118/57 (77) 100 09/16/17 00:00 70 09/16/17 09/16/17 09/17/17 15:00 23:00 07:00 Intake Total 600 ml Output Total 1175 ml Balance -575 ml Intake Oral 600 ml Output Urine Total 1175 ml # Bowel Movements 1 . Laboratory Tests Test 09/15/17 05:30 09/16/17 04:25 White Blood Count 30.4 TH/MM3 28.9 TH/MM3 Red Blood Count 3.47 MIL/MM3 3.90 MIL/MM3 Hemoglobin 11.0 GM/DL 11.6 GM/DL Hematocrit 31.8 % 35.6 % Mean Corpuscular Volume 91.8 FL 91.3 FL Mean Corpuscular Hemoglobin 31.6 PG 29.8 PG Mean Corpuscular Hemoglobin Concent 34.5 % 32.7 % Red Cell Distribution Width 13.9 % 13.4 % Platelet Count 338 TH/MM3 372 TH/MM3 Mean Platelet Volume 8.0 FL 8.2 FL Neutrophils (%) (Auto) 92.0 % 93.2 % Lymphocytes (%) (Auto) 1.1 % 1.7 % Monocytes (%) (Auto) 5.7 % 1.5 % Eosinophils (%) (Auto) 0.0 % 0.0 % Basophils (%) (Auto) 1.2 % 3.6 % Neutrophils # (Auto) 28.0 TH/MM3 27.0 TH/MM3 Lymphocytes # (Auto) 0.3 TH/MM3 0.5 TH/MM3 Monocytes # (Auto) 1.7 TH/MM3 0.4 TH/MM3 Eosinophils # (Auto) 0.0 TH/MM3 0.0 TH/MM3 Basophils # (Auto) 0.4 TH/MM3 1.0 TH/MM3 CBC Comment AUTO DIFF AUTO DIFF Differential Total Cells Counted 100 Neutrophils % (Manual) 93 % Band Neutrophils % 1 % Lymphocytes % 2 % Monocytes % 4 % Neutrophils # (Manual) 28.6 TH/MM3 Differential Comment FINAL DIFF MANUAL AUTO DIFF CONFIRMED Platelet Estimate NORMAL NORMAL Platelet Morphology Comment NORMAL NORMAL Red Cell Morphology Comment NORMAL NORMAL Laboratory Tests Test 09/15/17 05:30 09/15/17 21:27 09/16/17 04:25 Blood Urea Nitrogen 31 MG/DL 34 MG/DL Creatinine 0.73 MG/DL 0.97 MG/DL Random Glucose 100 MG/DL 114 MG/DL Total Protein 5.1 GM/DL 5.5 GM/DL Albumin 1.8 GM/DL 1.9 GM/DL Calcium Level 7.2 MG/DL 7.4 MG/DL Alkaline Phosphatase 58 U/L 62 U/L Aspartate Amino Transf (AST/SGOT) 57 U/L 72 U/L Alanine Aminotransferase (ALT/SGPT) 108 U/L 125 U/L Total Bilirubin 0.8 MG/DL 1.1 MG/DL Sodium Level 141 MEQ/L 138 MEQ/L Potassium Level 4.8 MEQ/L 4.4 MEQ/L Chloride Level 105 MEQ/L 100 MEQ/L Carbon Dioxide Level 29.5 MEQ/L 32.5 MEQ/L Anion Gap 7 MEQ/L 6 MEQ/L Estimat Glomerular Filtration Rate 77 ML/MIN 55 ML/MIN Protein Corrected Calcium 8.3 MG/DL 8.3 MG/DL B-Type Natriuretic Peptide 136 PG/ML Imaging Last Impressions Chest X-Ray 09/16/17 0000 Signed Impressions: Service Date/Time: Saturday, September 16, 2017 09:31 - CONCLUSION: Stable chest Kuldeep Hong MD FACR Chest CT 09/05/17 0000 Signed Impressions: Service Date/Time: August 22:57 - CONCLUSION: 1. Moderate to severe nonspecific chronic interstitial lung disease. 2. Trace bilateral pleural effusions. 3. Upper limits of normal to slightly enlarged mediastinal lymph nodes. 4. Tortuous and atherosclerotic thoracic aorta. No aneurysm. 5. Left atrial enlargement. There is aortic and mitral valve calcification. 6. Increased density liver. Differential includes side effects from medication such as amiodarone and mineral deposition. If the patient has a history of amiodarone use, this may also explain the pulmonary fibrosis findings. Bg Haley MD Physical Exam CONSTITUTIONAL/GENERAL: This is an adequately nourished frail elderly chronically ill appearing female patient, in no apparent distress. TUBES/LINES/DRAINS: SKIN: No jaundice, rashes, or lesions. Ecchymoses on upper extremities. + skin tear, not infected L lower leg Skin temperature appropriate. Not diaphoretic. CARDIOVASCULAR: Regular rate and rhythm without murmurs, gallops, or rubs. No JVD. Peripheral pulses symmetric. RESPIRATORY/CHEST: Symmetric, unlabored respirations. Clear to auscultation. Breath sounds equal bilaterally. No wheezes, rales, or rhonchi. GASTROINTESTINAL: Abdomen soft, non-tender, nondistended. No hepato-splenomegaly , or palpable masses. No guarding. Bowel sounds present. GENITOURINARY: Without palpable bladder distension. External catheter in place with clear yellow MUSCULOSKELETAL: Extremities without clubbing, cyanosis, or edema. No joint tenderness or effusion noted. No calf tenderness. No mottling or clubbing. LYMPHATICS: No palpable cervical or supraclavicular adenopathy. NEUROLOGICAL: Awake and alert. Oriented x 3 Motor and sensory grossly within normal limits. Follows commands. Clear speech. Moves all extremities. 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
[2017-09-17] VITALS (15 sets, daily range): BP systolic 104–128; BP diastolic 55–64; PULSE 75–84; RESP 17–24; TEMP 97.7–98.3; O2SAT 90–100
[2017-09-17] MEDS: RESP: ALBUTEROL 2.5 MG/IPRATROPIUM 0.5 MG NEB (SCH) NEB ×4 (03:02→21:06)
[2017-09-17] MEDS: methylPREDNISolone SOD SUCC 40 MG/1 ML VIAL IV PUSH SCH (04:12)
[2017-09-17 05:03] LABS: AUTOMATED NEUTROPHIL # 38.3 TH/MM3 (1.8-7.7); BASOPHIL # 0.4 TH/MM3 (0-0.2); BASOPHIL % 1.1 % (0.0-2.0); HEMATOCRIT 29.9 % (35.0-46.0); HEMOGLOBIN 10.5 GM/DL (11.6-15.3); LYMPH % 1.1 % (9.0-44.0); LYMPHOCYTE # 0.4 TH/MM3 (1.0-4.8); MEAN CELL VOLUME 91.7 FL (80.0-100.0); MEAN CORPUSCULAR HEMOGLOBIN 32.2 PG (27.0-34.0); MEAN CORPUSCULAR HGB CONC 35.1 % (32.0-36.0); MEAN PLATELET VOLUME 8.1 FL (7.0-11.0); MONO % 2.2 % (0.0-8.0); MONOCYTE # 0.9 TH/MM3 (0-0.9); NEUT % 95.6 % (16.0-70.0); PLATELET COUNT 330 TH/MM3 (150-450); RED BLOOD COUNT 3.26 MIL/MM3 (4.00-5.30); RED CELL DISTRIBUTION WIDTH 13.9 % (11.6-17.2)
[2017-09-17 07:19] LABS: BANDS 2 % (0-6); LYMPHOCYTES 1 % (9-44); MONOCYTES 3 % (0-8); NEUTROPHIL # MANUAL DIFF 38.4 TH/MM3 (1.8-7.7); POLYS (SEG NEUTROPHILS) 94 % (16-70)
--- NOTE | 2017-09-17 08:31 | HHI.PR ---
Subjective Remarks Uneventful night. O2 has been weaned to 3 l/min NC. O2 sats 94-97%. denies SOB. Occasional cough. No abdominal pain, diarrhea, nausea or emesis. Appetite good. Current Medications Medications (Trade) Dose Ordered Sig/Mart Route Start Time Stop Time Status Last Admin (NS Flush) 2 ml UNSCH PRN IVF 09/05/17 13:30 09/12/17 05:52 (Tylenol) 1,000 mg Q6HR PRN PO 09/05/17 20:00 09/13/17 06:38 (Lopressor) 50 mg HS PO 09/05/17 21:00 09/15/17 19:41 (Lopressor) 75 mg DAILY PO 09/06/17 09:00 09/16/17 08:11 (Xarelto) 15 mg DAILY PO 09/06/17 09:00 09/16/17 08:09 (Cardizem Cd) 180 mg DAILY PO 09/06/17 09:00 09/16/17 08:07 (Ultram) 50 mg Q8HR PRN PO 09/05/17 22:00 09/16/17 16:42 Patient Own Medication PT OWN MED:FYAVOLV 1MG-5... DAILY PO 09/06/17 14:00 09/16/17 08:06 Miscellaneous Information Patient in critical care unit? Ass... Q361D .XX 09/07/17 10:00 09/07/17 10:00 (Protonix) 40 mg DAILY PO 09/07/17 10:00 09/16/17 08:09 (Duoneb Neb) 1 ampule Q2HR NEB PRN NEB 09/07/17 10:00 09/14/17 04:08 (Colace) 100 mg BID PO 09/07/17 14:00 09/15/17 19:39 (Tears Naturale Opth Soln) 1 drop TID EACH EYE 09/09/17 09:00 09/16/17 08:06 (Oscal) 500 mg BID PO 09/09/17 09:00 09/16/17 20:50 (Ferrous Sulfate) 325 mg DAILY PO 09/10/17 09:00 09/16/17 08:08 (KCl) 10 meq DAILY PO 09/12/17 09:00 09/16/17 08:08 Fluconazole/ Sodium Chloride 50 ml @ 50 mls/hr Q24H IV 09/15/17 11:00 09/16/17 20:12 (Lasix) 40 mg DAILY PO 09/15/17 10:00 09/16/17 08:08 (Ativan Inj) 0.5 mg Q4H PRN IV 09/16/17 00:15 (SoluMEDROL INJ) 40 mg Q6H IV PUSH 09/16/17 09:00 09/17/17 04:12 (Duoneb Neb) 1 ampule Q6HR NEB NEB 09/16/17 10:00 09/17/17 03:02 Objective Vital Signs Date Time Temp Pulse Resp B/P (MAP) Pulse Ox O2 Delivery O2 Flow Rate FiO2 09/17/17 04:16 98.3 84 18 109/64 (79) 95 09/17/17 04:00 80 09/17/17 02:01 78 19 105/57 (73) 93 09/17/17 00:00 76 09/17/17 00:00 97.7 76 22 104/56 (72) 96 09/16/17 22:01 76 24 94/49 (64) 100 09/16/17 21:01 74 24 106/54 (71) 98 09/16/17 21:00 97 Nasal Cannula 3.00 09/16/17 20:00 98.0 76 24 99/52 (68) 100 09/16/17 20:00 93 Nasal Cannula 3.00 09/16/17 20:00 74 09/16/17 19:00 80 25 117/61 (79) 89 09/16/17 16:00 98.0 74 48 100/51 (67) 93 09/16/17 16:00 74 09/16/17 15:00 70 50 112/54 (73) 97 09/16/17 14:24 25 09/16/17 14:00 68 25 102/52 (69) 99 09/16/17 13:00 97.9 70 24 104/55 (71) 97 09/16/17 12:00 68 09/16/17 12:00 68 21 115/57 (76) 95 09/16/17 11:00 70 26 123/57 (79) 94 09/16/17 10:00 92 Nasal Cannula 4.00 3/5/18 10:00 74 22 129/65 (86) 92 09/16/17 09:54 94 Nasal Cannula 6.00 09/16/17 09:00 78 19 148/69 (95) 89 I/O 09/16/17 09/16/17 09/16/17 09/17/17 09/17/17 09/17/17 07:00 15:00 23:00 07:00 15:00 23:00 Intake Total 600 ml 200 ml Output Total 750 ml 1175 ml 500 ml Balance -750 ml -575 ml -300 ml Intake Oral 600 ml 200 ml Output Urine Total 750 ml 1175 ml 500 ml # Bowel Movements 1 0 CV: RRR with systolic murmur Lungs: scattered fibrotic rales otherwise no wheezes or rhonchi. Abd: soft, NT, ND, +BS Ext: No edema with knee high PETR hose in place Result Diagram: 09/17/17 0445 09/16/17 0425 Imaging Last 48 hours Impressions Chest X-Ray 09/16/17 0000 Signed Impressions: Service Date/Time: Saturday, September 16, 2017 09:31 - CONCLUSION: Stable chest Kuldeep Hong MD FACR Assessment and Plan Problem List: (1) Acute idiopathic pulmonary fibrosis ICD Codes: J84.112 - Idiopathic pulmonary fibrosis Status: Acute Plan: Improved with increased steroids. Will need to wean steroids slowly. Transition to po steroids today. Cont O2 and nebs (2) Leukocytosis ICD Codes: D72.829 - Elevated white blood cell count, unspecified Status: Acute Plan: WBC higher today. No evidence of infection. ID believes it is related to steroids. Will follow (3) Paroxysmal atrial fibrillation ICD Codes: I48.0 - Paroxysmal atrial fibrillation Status: Chronic Plan: Patient remains in sinus rhythm. Continue anticoagulation (4) Abnormal LFTs ICD Codes: R94.5 - Abnormal results of liver function studies Status: Chronic Plan: LFTs are little higher. We'll need to evaluate when patient is more stable. (5) Rheumatoid arthritis ICD Codes: M06.9 - Rheumatoid arthritis, unspecified Status: Chronic Plan: Patient has extensive joint deformities and disability. Tylenol and Tramadol prn. (6) Hypertension ICD Codes: I10 - Hypertension Status: Chronic Plan: Blood pressure under adequate control with current medications (7) Hypocalcemia ICD Codes: E83.51 - Hypocalcemia Status: Acute Plan: Calcium level improving. Continue with calcium carbonate. (8) At high risk for deep venous thrombosis ICD Codes: Z91.89 - Other specified personal risk factors, not elsewhere classified Status: Acute Plan: Patient is currently receiving Xarelto (9) Hyperlipidemia ICD Codes: E78.5 - Hyperlipidemia, unspecified Status: Chronic Plan: Statin discontinued due to abnormal LFT's Problem Qualifiers (1) Leukocytosis: Qualified Codes: D72.829 - Elevated white blood cell count, unspecified (2) Rheumatoid arthritis: (3) Hypertension: Qualified Codes: I10 - Essential (primary) hypertension (4) Hyperlipidemia: Qualified Codes: E78.2 - Mixed hyperlipidemia Riki Duarte MD Sep 17, 2017 08:31
[2017-09-17] MEDS: DOCUSATE SODIUM 100 MG CAP PO SCH ×2 (09:00→20:59)
[2017-09-17] MEDS: CALCIUM CARBONATE 1.25 GM (CA 500 MG) TAB PO SCH ×2 (09:00→20:59)
[2017-09-17] MEDS: FERROUS SULFATE 325 MG (65 MG ELEMENTAL IRON) TAB PO SCH (09:29)
[2017-09-17] MEDS: DILTIAZEM-CD 180 MG CAP ER PO SCH (09:30)
[2017-09-17] MEDS: FUROSEMIDE 40 MG TAB PO SCH (09:31)
[2017-09-17] MEDS: POTASSIUM CHLORIDE 10 MEQ CONTROLLED RELEASE TAB PO SCH (09:44)
[2017-09-17] MEDS: RIVAROXABAN 15 MG TAB PO SCH (09:45)
[2017-09-17] MEDS: PANTOPRAZOLE SOD 40 MG DELAYED RELEASE TAB PO SCH (09:46)
[2017-09-17] MEDS: METOPROLOL TARTRATE 25 MG TAB PO SCH (09:47)
[2017-09-17] MEDS: ARTIFICIAL TEARS OPTH SOLN 15 ML BTL EACH EYE SCH ×3 (09:49→17:53)
[2017-09-17] MEDS: [UNRECOGNIZED DRUG - OTHER] PO SCH (09:51)
[2017-09-17] MEDS: predniSONE 50 MG TAB PO SCH ×2 (10:06→20:59)
[2017-09-17] MEDS: FLUCONAZOLE 100 MG PREMIX BAG 50 ML IV SCH (11:14)
[2017-09-17] MEDS: traMADol HCL 50 MG TAB PO PRN (11:29)
--- NOTE | 2017-09-17 18:14 | HHI.IDPN ---
Subjective Subjective Remarks No fever Breathing is doing ok. No cough Swallowing ok Antibiotics fluconazole Allergies: Coded Allergies: adhesive tape (Verified Allergy, Intermediate, 09/05/17) Uncoded Allergies: narcotics (Allergy, Intermediate, Hives., 09/05/17) Review of Systems Constitutional Constitutional Remarks No fevers Objective . Vital Signs Date Time Temp Pulse Resp B/P (MAP) Pulse Ox O2 Delivery O2 Flow Rate FiO2 09/17/17 16:33 75 09/17/17 16:13 95 Nasal Cannula 3.00 09/17/17 16:00 98.0 75 18 128/59 (82) 94 09/17/17 12:00 97.7 78 17 123/62 (82) 90 09/17/17 09:00 81 09/17/17 09:00 Nasal Cannula 3.00 100 09/17/17 08:00 98.0 82 21 123/62 (82) 97 09/17/17 04:16 98.3 84 18 109/64 (79) 95 09/17/17 04:00 80 09/17/17 02:01 78 19 105/57 (73) 93 09/17/17 00:00 76 09/17/17 00:00 97.7 76 22 104/56 (72) 96 09/16/17 22:01 76 24 94/49 (64) 100 09/16/17 21:01 74 24 106/54 (71) 98 09/16/17 21:00 97 Nasal Cannula 3.00 09/16/17 20:00 98.0 76 24 99/52 (68) 100 09/16/17 20:00 93 Nasal Cannula 3.00 09/16/17 20:00 74 09/16/17 19:00 80 25 117/61 (79) 89 09/17/17 09/17/17 09/18/17 15:00 23:00 07:00 Output Total 825 ml Balance -825 ml Output Urine Total 825 ml . Laboratory Tests Test 09/16/17 04:25 09/17/17 04:45 White Blood Count 28.9 TH/MM3 40.0 TH/MM3 Red Blood Count 3.90 MIL/MM3 3.26 MIL/MM3 Hemoglobin 11.6 GM/DL 10.5 GM/DL Hematocrit 35.6 % 29.9 % Mean Corpuscular Volume 91.3 FL 91.7 FL Mean Corpuscular Hemoglobin 29.8 PG 32.2 PG Mean Corpuscular Hemoglobin Concent 32.7 % 35.1 % Red Cell Distribution Width 13.4 % 13.9 % Platelet Count 372 TH/MM3 330 TH/MM3 Mean Platelet Volume 8.2 FL 8.1 FL Neutrophils (%) (Auto) 93.2 % 95.6 % Lymphocytes (%) (Auto) 1.7 % 1.1 % Monocytes (%) (Auto) 1.5 % 2.2 % Eosinophils (%) (Auto) 0.0 % 0.0 % Basophils (%) (Auto) 3.6 % 1.1 % Neutrophils # (Auto) 27.0 TH/MM3 38.3 TH/MM3 Lymphocytes # (Auto) 0.5 TH/MM3 0.4 TH/MM3 Monocytes # (Auto) 0.4 TH/MM3 0.9 TH/MM3 Eosinophils # (Auto) 0.0 TH/MM3 0.0 TH/MM3 Basophils # (Auto) 1.0 TH/MM3 0.4 TH/MM3 CBC Comment AUTO DIFF AUTO DIFF Differential Comment AUTO DIFF CONFIRMED FINAL DIFF MANUAL Platelet Estimate NORMAL NORMAL Platelet Morphology Comment NORMAL NORMAL Red Cell Morphology Comment NORMAL NORMAL Differential Total Cells Counted 100 Neutrophils % (Manual) 94 % Band Neutrophils % 2 % Lymphocytes % 1 % Monocytes % 3 % Neutrophils # (Manual) 38.4 TH/MM3 Laboratory Tests Test 09/15/17 21:27 09/16/17 04:25 B-Type Natriuretic Peptide 136 PG/ML Blood Urea Nitrogen 34 MG/DL Creatinine 0.97 MG/DL Random Glucose 114 MG/DL Total Protein 5.5 GM/DL Albumin 1.9 GM/DL Calcium Level 7.4 MG/DL Alkaline Phosphatase 62 U/L Aspartate Amino Transf (AST/SGOT) 72 U/L Alanine Aminotransferase (ALT/SGPT) 125 U/L Total Bilirubin 1.1 MG/DL Sodium Level 138 MEQ/L Potassium Level 4.4 MEQ/L Chloride Level 100 MEQ/L Carbon Dioxide Level 32.5 MEQ/L Anion Gap 6 MEQ/L Estimat Glomerular Filtration Rate 55 ML/MIN Protein Corrected Calcium 8.3 MG/DL Imaging Last Impressions Chest X-Ray 09/16/17 0000 Signed Impressions: Service Date/Time: Saturday, September 16, 2017 09:31 - CONCLUSION: Stable chest Kuldeep Hong MD FACR Chest CT 09/05/17 0000 Signed Impressions: Service Date/Time: August 22:57 - CONCLUSION: 1. Moderate to severe nonspecific chronic interstitial lung disease. 2. Trace bilateral pleural effusions. 3. Upper limits of normal to slightly enlarged mediastinal lymph nodes. 4. Tortuous and atherosclerotic thoracic aorta. No aneurysm. 5. Left atrial enlargement. There is aortic and mitral valve calcification. 6. Increased density liver. Differential includes side effects from medication such as amiodarone and mineral deposition. If the patient has a history of amiodarone use, this may also explain the pulmonary fibrosis findings. Bg Haley MD Physical Exam CONSTITUTIONAL/GENERAL: This is an adequately nourished frail elderly chronically ill appearing female patient, in no apparent distress. SKIN: No jaundice, rashes, or lesions. Ecchymoses on upper extremities. + skin tear, not infected L lower leg Skin temperature appropriate. Not diaphoretic. CARDIOVASCULAR: Regular rate and rhythm without murmurs, gallops, or rubs. No JVD. Peripheral pulses symmetric. RESPIRATORY/CHEST: Symmetric, unlabored respirations. . Breath sounds equal bilaterally decreased GASTROINTESTINAL: Abdomen soft, non-tender, nondistended. No hepato-splenomegaly , or palpable masses. No guarding. Bowel sounds present. GENITOURINARY: Without palpable bladder distension. External catheter in place with clear yellow MUSCULOSKELETAL: Deformities of toes LYMPHATICS: No palpable cervical or supraclavicular adenopathy. NEUROLOGICAL: Awake and alert. Oriented x 3 Motor and sensory grossly within normal limits. Follows commands. Clear speech. Moves all extremities. 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
--- NOTE | 2017-09-17 19:13 | HHI.PR ---
Subjective Remarks no SOB now on O2 3L/NC SEEMS COMFORTABLE Objective Vital Signs Date Time Temp Pulse Resp B/P (MAP) Pulse Ox O2 Delivery O2 Flow Rate FiO2 09/17/17 16:33 75 09/17/17 16:13 95 Nasal Cannula 3.00 09/17/17 16:00 98.0 75 18 128/59 (82) 94 09/17/17 12:00 97.7 78 17 123/62 (82) 90 09/17/17 09:00 81 09/17/17 09:00 Nasal Cannula 3.00 100 09/17/17 08:00 98.0 82 21 123/62 (82) 97 09/17/17 04:16 98.3 84 18 109/64 (79) 95 09/17/17 04:00 80 09/17/17 02:01 78 19 105/57 (73) 93 09/17/17 00:00 76 09/17/17 00:00 97.7 76 22 104/56 (72) 96 09/16/17 22:01 76 24 94/49 (64) 100 09/16/17 21:01 74 24 106/54 (71) 98 09/16/17 21:00 97 Nasal Cannula 3.00 09/16/17 20:00 98.0 76 24 99/52 (68) 100 09/16/17 20:00 93 Nasal Cannula 3.00 09/16/17 20:00 74 I/O 09/16/17 09/16/17 09/16/17 09/17/17 09/17/17 09/17/17 07:00 15:00 23:00 07:00 15:00 23:00 Intake Total 600 ml 200 ml Output Total 750 ml 1175 ml 500 ml 825 ml Balance -750 ml -575 ml -300 ml -825 ml Intake Oral 600 ml 200 ml Output Urine Total 750 ml 1175 ml 500 ml 825 ml # Bowel Movements 1 0 0 Result Diagram: 09/17/17 0445 09/16/17 042 Objective Remarks GENERAL: SKIN: Warm and dry. HEAD: Atraumatic. Normocephalic. EYES: Pupils equal and round. No scleral icterus. No injection or drainage. ENT: No nasal bleeding or discharge. Mucous membranes pink and moist. NECK: Trachea midline. No JVD. CARDIOVASCULAR: Regular rate and rhythm. RESPIRATORY: No accessory muscle use. bilateral rhonchi. GASTROINTESTINAL: Abdomen soft, non-tender, nondistended. Hepatic and splenic margins not palpable. MUSCULOSKELETAL: Extremities without clubbing, cyanosis, or edema. No obvious deformities. NEUROLOGICAL: Awake and alert. No obvious cranial nerve deficits. Motor grossly within normal limits. Five out of 5 muscle strength in the arms and legs. Normal speech. PSYCHIATRIC: Appropriate mood and affect; insight and judgment normal. Assessment and Plan Assessment and Plan respiratory filure copd pulm fibrosis improving plan O2 NEEDED BRONCHODILATORS PO STEROIDS INCREASE ACTIVITY OK FOR MED FLOOR Dayne Oscar MD Sep 17, 2017 19:13
[2017-09-17] MEDS: METOPROLOL TARTRATE 50 MG TAB PO SCH (20:59)
[2017-09-17] MEDS: DOXYCYCLINE HYCLATE 100 MG TAB PO SCH (20:59)
[2017-09-18] VITALS (19 sets, daily range): BP systolic 118–135; BP diastolic 51–65; PULSE 70–80; RESP 20–31; TEMP 97.1–97.9; O2SAT 89–100
[2017-09-18] MEDS: RESP: ALBUTEROL 2.5 MG/IPRATROPIUM 0.5 MG NEB (SCH) NEB ×4 (03:29→22:15)
[2017-09-18] MEDS ORDERED: OXYGENDME NAS.CANULA (08:20)
--- NOTE | 2017-09-18 08:24 | HHI.PR ---
Subjective Remarks Patient is comfortable on oxygen at 4 L/m per nasal cannula. Oxygen saturations 93-99%. She refused to get out of bed yesterday. Refuse physical therapy. Appetite is good. Urine output good. No bowel movement yesterday but will likely have one today. Denies any chest pain, palpitations, nausea or vomiting. Denies any pain. Edema has improved with knee-high support stockings. Current Medications Medications (Trade) Dose Ordered Sig/Mart Route Start Time Stop Time Status Last Admin (NS Flush) 2 ml UNSCH PRN IVF 09/05/17 13:30 09/12/17 05:52 (Tylenol) 1,000 mg Q6HR PRN PO 09/05/17 20:00 09/13/17 06:38 (Lopressor) 50 mg HS PO 09/05/17 21:00 09/17/17 20:59 (Lopressor) 75 mg DAILY PO 09/06/17 09:00 09/17/17 09:47 (Xarelto) 15 mg DAILY PO 09/06/17 09:00 09/17/17 09:45 (Cardizem Cd) 180 mg DAILY PO 09/06/17 09:00 09/17/17 09:30 (Ultram) 50 mg Q8HR PRN PO 09/05/17 22:00 09/17/17 11:29 Patient Own Medication PT OWN MED:FYAVOLV 1MG-5... DAILY PO 09/06/17 14:00 09/17/17 09:51 Miscellaneous Information Patient in critical care unit? Ass... Q361D .XX 09/07/17 10:00 09/07/17 10:00 (Protonix) 40 mg DAILY PO 09/07/17 10:00 09/17/17 09:46 (Duoneb Neb) 1 ampule Q2HR NEB PRN NEB 09/07/17 10:00 09/14/17 04:08 (Colace) 100 mg BID PO 09/07/17 14:00 09/17/17 20:59 (Tears Naturale Opth Soln) 1 drop TID EACH EYE 09/09/17 09:00 09/17/17 13:24 (Oscal) 500 mg BID PO 09/09/17 09:00 09/17/17 20:59 (Ferrous Sulfate) 325 mg DAILY PO 09/10/17 09:00 09/17/17 09:29 (KCl) 10 meq DAILY PO 09/12/17 09:00 09/17/17 09:44 Fluconazole/ Sodium Chloride 50 ml @ 50 mls/hr Q24H IV 09/15/17 11:00 09/17/17 11:14 (Lasix) 40 mg DAILY PO 09/15/17 10:00 09/17/17 09:31 (Ativan Inj) 0.5 mg Q4H PRN IV 09/16/17 00:15 (Duoneb Neb) 1 ampule Q6HR NEB NEB 09/16/17 10:00 09/18/17 03:29 (Deltasone) 50 mg BID PO 09/17/17 09:00 09/17/17 20:59 (Vibratab) 100 mg BID PO 09/17/17 21:00 09/17/17 20:59 Objective Vital Signs Date Time Temp Pulse Resp B/P (MAP) Pulse Ox O2 Delivery O2 Flow Rate FiO2 09/18/17 04:00 97.9 74 20 131/62 (85) 98 09/18/17 04:00 74 09/18/17 02:00 72 24 129/63 (85) 100 09/18/17 00:00 97.5 76 22 125/56 (79) 100 09/18/17 00:00 76 09/17/17 22:00 76 22 123/63 (83) 100 09/17/17 21:06 93 Nasal Cannula 4.00 09/17/17 20:00 75 09/17/17 20:00 96 Nasal Cannula 3.00 32 09/17/17 19:38 97.7 76 24 118/55 (76) 96 09/17/17 19:30 99 Nasal Cannula 3.00 09/17/17 16:33 75 09/17/17 16:13 95 Nasal Cannula 3.00 09/17/17 16:00 98.0 75 18 128/59 (82) 94 09/17/17 12:00 97.7 78 17 123/62 (82) 90 09/17/17 09:00 81 09/17/17 09:00 Nasal Cannula 3.00 100 I/O 09/17/17 09/17/17 09/17/17 09/18/17 09/18/1709/18/18 07:00 15:00 23:00 07:00 15:00 23:00 Intake Total 200 ml 240 ml Output Total 500 ml 825 ml 350 ml Balance -300 ml -825 ml -110 ml Intake Oral 200 ml 240 ml Output Urine Total 500 ml 825 ml 350 ml # Bowel Movements 0 0 0 Cardiovascular: Regular rate and rhythm with systolic murmur Lungs: Scattered fibrotic brawls to no wheezes or rhonchi. Good air exchange. Abdomen: Soft, nontender, mild distention with bowel sounds present Extremities: No edema, calf tenderness or Homans sign. Bilateral knee-high support stockings in place Result Diagram: 09/17/17 0445 09/16/17 0425 Assessment and Plan Problem List: (1) Acute idiopathic pulmonary fibrosis ICD Codes: J84.112 - Idiopathic pulmonary fibrosis Status: Acute Plan: Respiratory status stable with oral steroids. Will need to wean steroids very slowly. Continue with supple oxygen and nebulizer treatments. (2) Leukocytosis ICD Codes: D72.829 - Elevated white blood cell count, unspecified Status: Acute Plan: The patient initially refused blood draw this morning. She now agrees. Will await repeat white blood cell count. Continue with Diflucan. Agree with adding doxycycline as per infectious disease tanning consultant. No evidence of any infection at this time. (3) Paroxysmal atrial fibrillation ICD Codes: I48.0 - Paroxysmal atrial fibrillation Status: Chronic Plan: Patient remains in sinus rhythm. Continue anticoagulation (4) Abnormal LFTs ICD Codes: R94.5 - Abnormal results of liver function studies Status: Chronic Plan: LFTs are little higher. We'll need to evaluate when patient is more stable. (5) Rheumatoid arthritis ICD Codes: M06.9 - Rheumatoid arthritis, unspecified Status: Chronic Plan: Patient has extensive joint deformities and disability. Tylenol and Tramadol prn. (6) Hypertension ICD Codes: I10 - Hypertension Status: Chronic Plan: Blood pressure under adequate control with current medications (7) Hypocalcemia ICD Codes: E83.51 - Hypocalcemia Status: Acute Plan: Calcium level improving. Continue with calcium carbonate. (8) At high risk for deep venous thrombosis ICD Codes: Z91.89 - Other specified personal risk factors, not elsewhere classified Status: Acute Plan: Patient is currently receiving Xarelto (9) Hyperlipidemia ICD Codes: E78.5 - Hyperlipidemia, unspecified Status: Chronic Plan: Statin discontinued due to abnormal LFT's Discharge Planning Anticipate discharge home on Saturday morning if white blood cell count decreasing and respiratory status stable. I have requested case management to finalize plans for supplemental oxygen at home. Patient is already established with [facility] will resume services upon discharge. Problem Qualifiers (1) Leukocytosis: Qualified Codes: D72.829 - Elevated white blood cell count, unspecified (2) Rheumatoid arthritis: (3) Hypertension: Qualified Codes: I10 - Essential (primary) hypertension (4) Hyperlipidemia: Qualified Codes: E78.2 - Mixed hyperlipidemia Riki Duarte MD Sep 18, 2017 08:24
[2017-09-18] MEDS: DILTIAZEM-CD 180 MG CAP ER PO SCH (09:00)
[2017-09-18] MEDS: DOXYCYCLINE HYCLATE 100 MG TAB PO SCH ×2 (09:00→21:29)
[2017-09-18] MEDS: ARTIFICIAL TEARS OPTH SOLN 15 ML BTL EACH EYE SCH ×3 (09:53→17:17)
[2017-09-18] MEDS: RIVAROXABAN 15 MG TAB PO SCH (09:53)
[2017-09-18] MEDS: FERROUS SULFATE 325 MG (65 MG ELEMENTAL IRON) TAB PO SCH (09:53)
[2017-09-18] MEDS: DOCUSATE SODIUM 100 MG CAP PO SCH ×2 (09:54→21:29)
[2017-09-18] MEDS: predniSONE 50 MG TAB PO SCH ×2 (09:54→21:29)
[2017-09-18] MEDS: PANTOPRAZOLE SOD 40 MG DELAYED RELEASE TAB PO SCH (09:54)
[2017-09-18] MEDS: FUROSEMIDE 40 MG TAB PO SCH (09:55)
[2017-09-18] MEDS: POTASSIUM CHLORIDE 10 MEQ CONTROLLED RELEASE TAB PO SCH (09:55)
[2017-09-18] MEDS: CALCIUM CARBONATE 1.25 GM (CA 500 MG) TAB PO SCH ×2 (09:56→21:29)
[2017-09-18] MEDS: METOPROLOL TARTRATE 25 MG TAB PO SCH (09:56)
[2017-09-18] MEDS: [UNRECOGNIZED DRUG - OTHER] PO SCH (09:57)
[2017-09-18 10:44] LABS: HEMATOCRIT 32.5 % (35.0-46.0); HEMOGLOBIN 11.5 GM/DL (11.6-15.3); MEAN CELL VOLUME 91.2 FL (80.0-100.0); MEAN CORPUSCULAR HEMOGLOBIN 32.4 PG (27.0-34.0); MEAN CORPUSCULAR HGB CONC 35.5 % (32.0-36.0); PLATELET COUNT 326 TH/MM3 (150-450); RED BLOOD COUNT 3.56 MIL/MM3 (4.00-5.30); RED CELL DISTRIBUTION WIDTH 14.1 % (11.6-17.2); WHITE BLOOD COUNT 36.7 TH/MM3 (4.0-11.0)
[2017-09-18 10:53] LABS: CHLORIDE 99 MEQ/L (98-107); SODIUM (NA) 138 MEQ/L (136-145)
[2017-09-18 10:56] LABS: CALCIUM 7.7 MG/DL (8.5-10.1)
[2017-09-18 10:57] LABS: BICARBONATE 29.4 MEQ/L (21.0-32.0); BLOOD UREA NITROGEN 32 MG/DL (7-18); GLUCOSE,RANDOM 190 MG/DL (74-106)
[2017-09-18 11:00] LABS: ALT (GPT) 146 U/L (10-53); AST (GOT) 67 U/L (15-37); GLOMERULAR FILTRATION RATE 48 ML/MIN (>89)
[2017-09-18 11:02] LABS: TOTAL BILIRUBIN ADULT 0.8 MG/DL (0.2-1.0); TOTAL PROTEIN 5.6 GM/DL (6.4-8.2)
[2017-09-18 11:03] LABS: ALKALINE PHOSPHATASE 71 U/L (45-117)
[2017-09-18 11:27] LABS: BANDS 5 % (0-6); LYMPHOCYTES 2 % (9-44); METAMYELOCYTES 1 % (0-1); MONOCYTES 2 % (0-8); NEUTROPHIL # MANUAL DIFF 35.2 TH/MM3 (1.8-7.7); POLYS (SEG NEUTROPHILS) 90 % (16-70)
[2017-09-18] MEDS: FLUCONAZOLE 100 MG PREMIX BAG 50 ML IV SCH (12:34)
--- NOTE | 2017-09-18 19:10 | HHI.PR ---
Subjective Remarks 81 YOWF with PAF,PF,RA,CVA has mild wheezing On 3 LNC Weak, mild sob No fever Appetite poor Objective Vital Signs Vital Signs Date Time Temp Pulse Resp B/P (MAP) Pulse Ox O2 Delivery O2 Flow Rate FiO2 09/18/17 16:28 97.5 72 23 135/63 (87) 89 09/18/17 16:00 70 09/18/17 15:27 70 27 127/62 (83) 98 09/18/17 14:00 72 09/18/17 12:00 97.1 09/18/17 12:00 74 09/18/17 11:38 76 31 118/55 (76) 94 09/18/17 10:00 80 09/18/17 09:44 76 24 120/51 (74) 100 09/18/17 09:40 96 Nasal Cannula 4.00 09/18/17 09:09 4.00 09/18/17 08:00 Nasal Cannula 4.00 32 09/18/17 08:00 76 09/18/17 07:38 72 22 126/58 (80) 100 09/18/17 07:00 97.7 09/18/17 04:00 97.9 74 20 131/62 (85) 98 09/18/17 04:00 74 09/18/17 02:00 72 24 129/63 (85) 100 09/18/17 00:00 97.5 76 22 125/56 (79) 100 09/18/17 00:00 76 09/17/17 22:00 76 22 123/63 (83) 100 09/17/17 21:06 93 Nasal Cannula 4.00 09/17/17 20:00 75 09/17/17 20:00 96 Nasal Cannula 3.00 32 09/17/17 19:38 97.7 76 24 118/55 (76) 96 09/17/17 19:30 99 Nasal Cannula 3.00 I/O 09/17/17 09/17/17 09/17/17 09/18/17 09/18/17 09/18/17 07:00 15:00 23:00 07:00 15:00 23:00 Intake Total 200 ml 240 ml Output Total 500 ml 825 ml 350 ml Balance -300 ml -825 ml -110 ml Intake Oral 200 ml 240 ml Output Urine Total 500 ml 825 ml 350 ml # Bowel Movements 0 0 0 Result Diagram: 09/18/17 1030 09/18/17 1030 Objective Remarks GENERAL: frail elderly female, mild sob SKIN: Warm and dry. HEAD: Normocephalic. EYES: No scleral icterus. No injection or drainage. NECK: Supple, trachea midline. No JVD or lymphadenopathy. CARDIOVASCULAR: Regular rate and rhythm without murmurs, gallops, or rubs. RESPIRATORY: Breath sounds equal bilaterally. No accessory muscle use. Insp rales GASTROINTESTINAL: Abdomen soft, non-tender, nondistended. MUSCULOSKELETAL: No cyanosis, or edema. BACK: Nontender without obvious deformity. No CVA tenderness. A/P Assessment and Plan PF COPD RA CVA PAF PLAN: Aerosol nebs Symbicort 2 puffs bid Supplement 02 PO prednisone Xarelto 15 mg daily. Nilson Zepeda MD Sep 18, 2017 19:10
[2017-09-18] MEDS: METOPROLOL TARTRATE 50 MG TAB PO SCH (21:29)
[2017-09-19] VITALS (16 sets, daily range): BP systolic 119–144; BP diastolic 58–69; PULSE 72–81; RESP 19–34; TEMP 97.6–98.4; O2SAT 88–100
[2017-09-19] MEDS: RESP: ALBUTEROL 2.5 MG/IPRATROPIUM 0.5 MG NEB (SCH) NEB ×5 (03:13→21:15)
[2017-09-19 04:35] LABS: AUTOMATED NEUTROPHIL # 29.5 TH/MM3 (1.8-7.7); BASOPHIL % 0.1 % (0.0-2.0); EOSINOPHIL # 0.1 TH/MM3 (0-0.4); EOSINOPHIL % 0.3 % (0.0-4.0); HEMATOCRIT 33.1 % (35.0-46.0); HEMOGLOBIN 11.4 GM/DL (11.6-15.3); LYMPHOCYTE # 0.3 TH/MM3 (1.0-4.8); MEAN CELL VOLUME 92.9 FL (80.0-100.0); MEAN CORPUSCULAR HEMOGLOBIN 32.1 PG (27.0-34.0); MEAN CORPUSCULAR HGB CONC 34.5 % (32.0-36.0); MEAN PLATELET VOLUME 7.8 FL (7.0-11.0); MONO % 3.9 % (0.0-8.0); MONOCYTE # 1.2 TH/MM3 (0-0.9); NEUT % 94.7 % (16.0-70.0); PLATELET COUNT 280 TH/MM3 (150-450); RED BLOOD COUNT 3.57 MIL/MM3 (4.00-5.30); RED CELL DISTRIBUTION WIDTH 14.9 % (11.6-17.2); WHITE BLOOD COUNT 31.1 TH/MM3 (4.0-11.0)
[2017-09-19 04:51] LABS: HYPERSEGMENTED POLYS 2+ (NORMAL); LYMPHOCYTES 2 % (9-44); MONOCYTES 3 % (0-8); NEUTROPHIL # MANUAL DIFF 29.5 TH/MM3 (1.8-7.7); POLYS (SEG NEUTROPHILS) 95 % (16-70)
[2017-09-19 05:00] LABS: ALBUMIN 1.8 GM/DL (3.4-5.0); BICARBONATE 28.1 MEQ/L (21.0-32.0); CALCIUM 7.4 MG/DL (8.5-10.1); CALCIUM-PROTEIN CORRECTED 8.4 MG/DL (8.5-10.1); CREATININE 0.89 MG/DL (0.50-1.00); TOTAL BILIRUBIN ADULT 0.8 MG/DL (0.2-1.0); TOTAL PROTEIN 5.3 GM/DL (6.4-8.2)
--- NOTE | 2017-09-19 08:31 | HHI.PR ---
Subjective Remarks Patient had an uneventful night. Remains on oxygen at 4 L/m per nasal cannula. Oxygen saturations are adequate. Taking by mouth well. Bowels moving. Urine output good. Denies pain. Denies chest pain, nausea or vomiting. She is out of bed and stretcher chair every day. She is working with physical therapy. She remains very weak. White blood cell count is lower today. Current Medications Medications (Trade) Dose Ordered Sig/Mart Route Start Time Stop Time Status Last Admin (NS Flush) 2 ml UNSCH PRN IVF 09/05/17 13:30 09/12/17 05:52 (Tylenol) 1,000 mg Q6HR PRN PO 09/05/17 20:00 09/13/17 06:38 (Lopressor) 50 mg HS PO 09/05/17 21:00 09/18/17 21:29 (Lopressor) 75 mg DAILY PO 09/06/17 09:00 09/18/17 09:56 (Xarelto) 15 mg DAILY PO 09/06/17 09:00 09/18/17 09:53 (Cardizem Cd) 180 mg DAILY PO 09/06/17 09:00 09/18/17 09:00 (Ultram) 50 mg Q8HR PRN PO 09/05/17 22:00 09/17/17 11:29 Patient Own Medication PT OWN MED:FYAVOLV 1MG-5... DAILY PO 09/06/17 14:00 09/18/17 09:57 Miscellaneous Information Patient in critical care unit? Ass... Q361D .XX 09/07/17 10:00 09/07/17 10:00 (Protonix) 40 mg DAILY PO 09/07/17 10:00 09/18/17 09:54 (Duoneb Neb) 1 ampule Q2HR NEB PRN NEB 09/07/17 10:00 09/14/17 04:08 (Colace) 100 mg BID PO 09/07/17 14:00 09/18/17 21:29 (Tears Naturale Opth Soln) 1 drop TID EACH EYE 09/09/17 09:00 09/18/17 17:17 (Oscal) 500 mg BID PO 09/09/17 09:00 09/18/17 21:29 (Ferrous Sulfate) 325 mg DAILY PO 09/10/17 09:00 09/18/17 09:53 (KCl) 10 meq DAILY PO 09/12/17 09:00 09/18/17 09:55 Fluconazole/ Sodium Chloride 50 ml @ 50 mls/hr Q24H IV 09/15/17 11:00 09/18/17 12:34 (Lasix) 40 mg DAILY PO 09/15/17 10:00 09/18/17 09:55 (Ativan Inj) 0.5 mg Q4H PRN IV 09/16/17 00:15 (Duoneb Neb) 1 ampule Q6HR NEB NEB 09/16/17 10:00 09/19/17 03:13 (Deltasone) 50 mg BID PO 09/17/17 09:00 09/18/17 21:29 (Vibratab) 100 mg BID PO 09/17/17 21:00 09/18/17 21:29 Objective Vital Signs Date Time Temp Pulse Resp B/P (MAP) Pulse Ox O2 Delivery O2 Flow Rate FiO2 09/19/17 04:00 75 09/19/17 04:00 75 09/19/17 03:43 97.8 74 19 134/63 (86) 88 09/19/17 03:38 72 20 136/63 (87) 90 09/19/17 00:00 74 24 126/61 (82) 100 09/19/17 00:00 75 09/18/17 22:15 95 Nasal Cannula 4.00 09/18/17 20:00 97.5 75 20 98 09/18/17 20:00 75 09/18/17 19:38 97.5 72 26 123/53 (76) 95 09/18/17 19:13 74 31 127/65 (85) 98 09/18/17 19:00 96 Nasal Cannula 2.00 09/18/17 16:28 97.5 72 23 135/63 (87) 89 09/18/17 16:00 70 09/18/17 15:27 70 27 127/62 (83) 98 09/18/17 14:00 72 09/18/17 12:00 97.1 09/18/17 12:00 74 09/18/17 11:38 76 31 118/55 (76) 94 09/18/17 10:00 80 09/18/17 09:44 76 24 120/51 (74) 100 09/18/17 09:40 96 Nasal Cannula 4.00 09/18/17 09:09 4.00 I/O 09/18/17 09/18/17 09/18/17 09/19/17 09/19/17 09/19/17 07:00 15:00 23:00 07:00 15:00 23:00 Intake Total 240 ml 60 ml Output Total 350 ml 900 ml 200 ml Balance -110 ml -900 ml -140 ml Intake Oral 240 ml 60 ml Output Urine Total 350 ml 900 ml 200 ml # Bowel Movements 0 0 Cardiovascular: Regular rate and rhythm with systolic murmur Lungs: Fibrotic rales but no wheezes or rhonchi. Abdomen: Soft, nontender, mild distention with bowel sounds present Extremities: Trace edema in the bilateral feet. No calf tenderness or Homans sign. Result Diagram: 09/19/1741009/19/17410 Assessment and Plan Problem List: (1) Acute idiopathic pulmonary fibrosis ICD Codes: J84.112 - Idiopathic pulmonary fibrosis Status: Acute Plan: Patient remained stable from a respiratory standpoint. We'll continue with oral steroids and wean very slowly over the next several months. We'll continue with supplemental oxygen and nebulizer treatments. (2) Leukocytosis ICD Codes: D72.829 - Elevated white blood cell count, unspecified Status: Acute Plan: White blood cell count is lower today. No evidence of any infection. Leukocytosis likely due to steroids. Should continue to see decrease as we wean the steroids. Will follow closely as an outpatient (3) Paroxysmal atrial fibrillation ICD Codes: I48.0 - Paroxysmal atrial fibrillation Status: Chronic Plan: Patient remains in sinus rhythm. Continue anticoagulation (4) Abnormal LFTs ICD Codes: R94.5 - Abnormal results of liver function studies Status: Chronic Plan: T stable. Will evaluate when patient is more stable. (5) Rheumatoid arthritis ICD Codes: M06.9 - Rheumatoid arthritis, unspecified Status: Chronic Plan: Patient has extensive joint deformities and disability. Tylenol and Tramadol prn. (6) Hypertension ICD Codes: I10 - Hypertension Status: Chronic Plan: Blood pressure under adequate control with current medications (7) Hypocalcemia ICD Codes: E83.51 - Hypocalcemia Status: Acute Plan: Calcium level improving. Continue with calcium carbonate. (8) At high risk for deep venous thrombosis ICD Codes: Z91.89 - Other specified personal risk factors, not elsewhere classified Status: Acute Plan: Patient is currently receiving Xarelto (9) Hyperlipidemia ICD Codes: E78.5 - Hyperlipidemia, unspecified Status: Chronic Plan: Statin discontinued due to abnormal LFT's Discharge Planning Plan to discharge patient back to the [facility] tomorrow. Will need home health to follow. Problem Qualifiers (1) Leukocytosis: Qualified Codes: D72.829 - Elevated white blood cell count, unspecified (2) Rheumatoid arthritis: (3) Hypertension: Qualified Codes: I10 - Essential (primary) hypertension (4) Hyperlipidemia: Qualified Codes: E78.2 - Mixed hyperlipidemia Riki Duarte MD Sep 19, 2017 08:31
[2017-09-19] MEDS: RIVAROXABAN 15 MG TAB PO SCH (09:59)
[2017-09-19] MEDS: DOXYCYCLINE HYCLATE 100 MG TAB PO SCH ×2 (09:59→19:58)
[2017-09-19] MEDS: METOPROLOL TARTRATE 25 MG TAB PO SCH (09:59)
[2017-09-19] MEDS: DILTIAZEM-CD 180 MG CAP ER PO SCH (09:59)
[2017-09-19] MEDS: CALCIUM CARBONATE 1.25 GM (CA 500 MG) TAB PO SCH ×2 (10:00→19:59)
[2017-09-19] MEDS: DOCUSATE SODIUM 100 MG CAP PO SCH ×2 (10:00→19:58)
[2017-09-19] MEDS: POTASSIUM CHLORIDE 10 MEQ CONTROLLED RELEASE TAB PO SCH (10:00)
[2017-09-19] MEDS: FLUCONAZOLE 100 MG TAB PO SCH (10:00)
[2017-09-19] MEDS: FUROSEMIDE 40 MG TAB PO SCH (10:00)
[2017-09-19] MEDS: PANTOPRAZOLE SOD 40 MG DELAYED RELEASE TAB PO SCH (10:00)
[2017-09-19] MEDS: FERROUS SULFATE 325 MG (65 MG ELEMENTAL IRON) TAB PO SCH (10:00)
[2017-09-19] MEDS: predniSONE 50 MG TAB PO SCH ×2 (10:00→19:58)
[2017-09-19] MEDS: [UNRECOGNIZED DRUG - OTHER] PO SCH (10:01)
[2017-09-19] MEDS: ARTIFICIAL TEARS OPTH SOLN 15 ML BTL EACH EYE SCH ×3 (10:01→17:51)
--- NOTE | 2017-09-19 13:43 | HHI.PR ---
Subjective Remarks no SOB now on O2 3L/NC SEEMS COMFORTABLE Objective Vital Signs Date Time Temp Pulse Resp B/P (MAP) Pulse Ox O2 Delivery O2 Flow Rate FiO2 09/19/17 13:27 4.00 09/19/17 09:55 98 Nasal Cannula 4.00 09/19/17 08:18 98.4 74 34 128/60 (82) 98 09/19/17 08:00 72 09/19/17 07:00 93 Nasal Cannula 3.00 09/19/17 04:00 75 09/19/17 04:00 75 09/19/17 03:43 97.8 74 19 134/63 (86) 88 09/19/17 03:38 72 20 136/63 (87) 90 09/19/17 00:00 74 24 126/61 (82) 100 09/19/17 00:00 75 09/18/17 22:15 95 Nasal Cannula 4.00 09/18/17 20:00 97.5 75 20 98 09/18/17 20:00 75 09/18/17 19:38 97.5 72 26 123/53 (76) 95 09/18/17 19:13 74 31 127/65 (85) 98 09/18/17 19:00 96 Nasal Cannula 2.00 09/18/17 16:28 97.5 72 23 135/63 (87) 89 09/18/17 16:00 70 09/18/17 15:27 70 27 127/62 (83) 98 09/18/17 14:00 72 I/O 09/18/17 09/18/17 09/18/17 09/19/17 09/19/17 09/19/17 07:00 15:00 23:00 07:00 15:00 23:00 Intake Total 240 ml 60 ml Output Total 350 ml 900 ml 200 ml Balance -110 ml -900 ml -140 ml Intake Oral 240 ml 60 ml Output Urine Total 350 ml 900 ml 200 ml # Bowel Movements 0 0 Result Diagram: 09/19/1741009/19/17410 Objective Remarks GENERAL: SKIN: Warm and dry. HEAD: Atraumatic. Normocephalic. EYES: Pupils equal and round. No scleral icterus. No injection or drainage. ENT: No nasal bleeding or discharge. Mucous membranes pink and moist. NECK: Trachea midline. No JVD. CARDIOVASCULAR: Regular rate and rhythm. RESPIRATORY: No accessory muscle use. bilateral rhonchi. GASTROINTESTINAL: Abdomen soft, non-tender, nondistended. Hepatic and splenic margins not palpable. MUSCULOSKELETAL: Extremities without clubbing, cyanosis, or edema. No obvious deformities. NEUROLOGICAL: Awake and alert. No obvious cranial nerve deficits. Motor grossly within normal limits. Five out of 5 muscle strength in the arms and legs. Normal speech. PSYCHIATRIC: Appropriate mood and affect; insight and judgment normal. Assessment and Plan Assessment and Plan respiratory filure copd pulm fibrosis improving plan O2 NEEDED BRONCHODILATORS PO STEROIDS INCREASE ACTIVITY OK FOR MED FLOOR home in AM if all well Dayne Oscar MD Sep 19, 2017 13:43
[2017-09-19] MEDS: METOPROLOL TARTRATE 50 MG TAB PO SCH (19:58)
[2017-09-20] VITALS (7 sets, daily range): BP systolic 146–153; BP diastolic 65–71; PULSE 70–74; RESP 21–30; TEMP 97.6–98.2; O2SAT 93–100
[2017-09-20] MEDS: RESP: ALBUTEROL 2.5 MG/IPRATROPIUM 0.5 MG NEB (SCH) NEB (03:40)
[2017-09-20 05:25] LABS: AUTOMATED NEUTROPHIL # 28.6 TH/MM3 (1.8-7.7); BASOPHIL # 0.1 TH/MM3 (0-0.2); BASOPHIL % 0.2 % (0.0-2.0); HEMATOCRIT 33.8 % (35.0-46.0); HEMOGLOBIN 10.8 GM/DL (11.6-15.3); LYMPH % 1.4 % (9.0-44.0); LYMPHOCYTE # 0.4 TH/MM3 (1.0-4.8); MEAN CELL VOLUME 92.4 FL (80.0-100.0); MEAN CORPUSCULAR HEMOGLOBIN 29.4 PG (27.0-34.0); MEAN CORPUSCULAR HGB CONC 31.8 % (32.0-36.0); MEAN PLATELET VOLUME 8.2 FL (7.0-11.0); MONO % 2.5 % (0.0-8.0); MONOCYTE # 0.7 TH/MM3 (0-0.9); NEUT % 95.9 % (16.0-70.0); PLATELET COUNT 291 TH/MM3 (150-450); RED BLOOD COUNT 3.66 MIL/MM3 (4.00-5.30); RED CELL DISTRIBUTION WIDTH 13.7 % (11.6-17.2); WHITE BLOOD COUNT 29.8 TH/MM3 (4.0-11.0)
[2017-09-20 05:51] LABS: ALBUMIN 1.9 GM/DL (3.4-5.0); BICARBONATE 30.7 MEQ/L (21.0-32.0); CALCIUM 7.3 MG/DL (8.5-10.1); CALCIUM-PROTEIN CORRECTED 8.2 MG/DL (8.5-10.1); CREATININE 0.87 MG/DL (0.50-1.00); TOTAL PROTEIN 5.4 GM/DL (6.4-8.2)
[2017-09-20 06:04] LABS: TOTAL BILIRUBIN ADULT 0.7 MG/DL (0.2-1.0)
--- NOTE | 2017-09-20 08:52 | HHI.PR ---
Subjective Remarks Patient is stable. Oxygen saturations good on O2 at 4 L/m per nasal cannula. Minimal cough. Appetite good. Bowels moving well. Urine output adequate. Current Medications Medications (Trade) Dose Ordered Sig/Mart Route Start Time Stop Time Status Last Admin (NS Flush) 2 ml UNSCH PRN IVF 09/05/17 13:30 09/12/17 05:52 (Tylenol) 1,000 mg Q6HR PRN PO 09/05/17 20:00 09/13/17 06:38 (Lopressor) 50 mg HS PO 09/05/17 21:00 09/19/17 19:58 (Lopressor) 75 mg DAILY PO 09/06/17 09:00 09/19/17 09:59 (Xarelto) 15 mg DAILY PO 09/06/17 09:00 09/19/17 09:59 (Cardizem Cd) 180 mg DAILY PO 09/06/17 09:00 09/19/17 09:59 (Ultram) 50 mg Q8HR PRN PO 09/05/17 22:00 09/17/17 11:29 Patient Own Medication PT OWN MED:FYAVOLV 1MG-5... DAILY PO 09/06/17 14:00 09/19/17 10:01 Miscellaneous Information Patient in critical care unit? Ass... Q361D .XX 09/07/17 10:00 09/07/17 10:00 (Protonix) 40 mg DAILY PO 09/07/17 10:00 09/19/17 10:00 (Duoneb Neb) 1 ampule Q2HR NEB PRN NEB 09/07/17 10:00 09/14/17 04:08 (Colace) 100 mg BID PO 09/07/17 14:00 09/19/17 19:58 (Tears Naturale Opth Soln) 1 drop TID EACH EYE 09/09/17 09:00 09/19/17 17:51 (Oscal) 500 mg BID PO 09/09/17 09:00 09/19/17 19:59 (Ferrous Sulfate) 325 mg DAILY PO 09/10/17 09:00 09/19/17 10:00 (KCl) 10 meq DAILY PO 09/12/17 09:00 09/19/17 10:00 (Lasix) 40 mg DAILY PO 09/15/17 10:00 09/19/17 10:00 (Ativan Inj) 0.5 mg Q4H PRN IV 09/16/17 00:15 (Duoneb Neb) 1 ampule Q6HR NEB NEB 09/16/17 10:00 09/19/17 03:13 (Deltasone) 50 mg BID PO 09/17/17 09:00 09/19/17 19:58 (Vibratab) 100 mg BID PO 09/17/17 21:00 09/19/17 19:58 (Diflucan) 100 mg DAILY PO 09/19/17 09:00 09/19/17 10:00 Objective Vital Signs Date Time Temp Pulse Resp B/P (MAP) Pulse Ox O2 Delivery O2 Flow Rate FiO2 09/20/17 07:32 98 4.00 09/20/17 04:00 72 09/20/17 03:50 97.6 70 146/65 (92) 100 09/20/17 00:00 72 09/19/17 23:34 97.6 72 25 144/69 (94) 99 09/19/17 21:15 95 Nasal Cannula 4.00 09/19/17 20:00 74 09/19/17 19:07 97.6 72 27 119/58 (78) 96 09/19/17 19:00 Nasal Cannula 3.00 09/19/17 16:00 74 31 126/58 (80) 94 09/19/17 16:00 81 09/19/17 13:38 74 31 126/58 (80) 94 09/19/17 13:27 4.00 09/19/17 12:00 72 09/19/17 11:38 98.2 72 25 138/60 (86) 96 09/19/17 11:36 72 24 138/60 (86) 96 09/19/17 09:55 98 Nasal Cannula 4.00 I/O 09/19/17 09/19/17 09/19/17 09/20/17 09/20/17 09/20/17 07:00 15:00 23:00 07:00 15:00 23:00 Intake Total 60 ml Output Total 200 ml 1000 ml 450 ml Balance -140 ml -1000 ml -450 ml Intake Oral 60 ml Output Urine Total 200 ml 1000 ml 450 ml # Bowel Movements 0 1 Cardiovascular: Regular rate and rhythm with systolic murmur Lungs: Scattered fibrotic rales without wheezes or rhonchi Abdomen: Soft, nontender, mild distention with bowel sounds present Result Diagram: 09/20/1742609/20/17426 Assessment and Plan Problem List: (1) Acute idiopathic pulmonary fibrosis ICD Codes: J84.112 - Idiopathic pulmonary fibrosis Status: Acute Plan: The patient's respiratory status is stable with oxygen at 4 L/m per nasal cannula. Will wean steroids very slowly over next several months. Continue with nebulizer treatments and supplemental oxygen. (2) Leukocytosis ICD Codes: D72.829 - Elevated white blood cell count, unspecified Status: Acute Plan: White blood count continues to decrease. No evidence of any infection at this time. Patient has been empirically placed on Diflucan and doxycycline. We'll complete courses of these medications. Anticipate continued decrease in white blood cell count as we wean the steroids. (3) Paroxysmal atrial fibrillation ICD Codes: I48.0 - Paroxysmal atrial fibrillation Status: Chronic Plan: Patient remains in sinus rhythm. Continue anticoagulation (4) Abnormal LFTs ICD Codes: R94.5 - Abnormal results of liver function studies Status: Chronic Plan: The patient has had abnormal liver function studies for years. Will try to obtain prior medical records to see what evaluation has been done in the past. Hepatitis titers are negative. JAUN is negative. When patient is more stable, will consider ultrasound of the liver. (5) Rheumatoid arthritis ICD Codes: M06.9 - Rheumatoid arthritis, unspecified Status: Chronic Plan: Patient has extensive joint deformities and disability. Tylenol and Tramadol prn. (6) Hypertension ICD Codes: I10 - Hypertension Status: Chronic Plan: Blood pressure under adequate control with current medications (7) Hypocalcemia ICD Codes: E83.51 - Hypocalcemia Status: Acute Plan: Calcium level improving. Continue with calcium carbonate. (8) At high risk for deep venous thrombosis ICD Codes: Z91.89 - Other specified personal risk factors, not elsewhere classified Status: Acute Plan: Patient is currently receiving Xarelto (9) Hyperlipidemia ICD Codes: E78.5 - Hyperlipidemia, unspecified Status: Chronic Plan: Statin discontinued due to abnormal LFT's Discharge Planning Discharge to assisted living facility today with home health following. The undersigned physician will see the patient at the facility within the next week. Problem Qualifiers (1) Leukocytosis: Qualified Codes: D72.829 - Elevated white blood cell count, unspecified (2) Rheumatoid arthritis: (3) Hypertension: Qualified Codes: I10 - Essential (primary) hypertension (4) Hyperlipidemia: Qualified Codes: E78.2 - Mixed hyperlipidemia Riki Duarte MD Sep 20, 2017 08:52
[2017-09-20] MEDS: DOCUSATE SODIUM 100 MG CAP PO SCH (09:00)
[2017-09-20] MEDS: ARTIFICIAL TEARS OPTH SOLN 15 ML BTL EACH EYE SCH (09:00)
[2017-09-20] MEDS ORDERED: METO50TA PO (09:20)
[2017-09-20] MEDS ORDERED: Albuterol-Ipratropium Neb NEB (09:20)
[2017-09-20] MEDS ORDERED: METO-426 PO (09:20)
[2017-09-20] MEDS ORDERED: FURO40TA PO (09:20)
[2017-09-20] MEDS ORDERED: CALC500 PO (09:20)
[2017-09-20] MEDS ORDERED: PANT40TA3 PO (09:20)
[2017-09-20] MEDS ORDERED: TRAM50 PO (09:20)
[2017-09-20] MEDS ORDERED: DIFL100T PO (09:20)
[2017-09-20] MEDS ORDERED: FERR325T20 PO (09:20)
[2017-09-20] MEDS ORDERED: PRED50 PO (09:20)
[2017-09-20] MEDS ORDERED: DOXY100T PO (09:20)
[2017-09-20] MEDS: [UNRECOGNIZED DRUG - OTHER] PO SCH (10:19)
[2017-09-20] MEDS: RIVAROXABAN 15 MG TAB PO SCH (10:19)
[2017-09-20] MEDS: DILTIAZEM-CD 180 MG CAP ER PO SCH (10:20)
[2017-09-20] MEDS: predniSONE 50 MG TAB PO SCH (10:20)
[2017-09-20] MEDS: FLUCONAZOLE 100 MG TAB PO SCH (10:21)
[2017-09-20] MEDS: FERROUS SULFATE 325 MG (65 MG ELEMENTAL IRON) TAB PO SCH (10:22)
[2017-09-20] MEDS: POTASSIUM CHLORIDE 10 MEQ CONTROLLED RELEASE TAB PO SCH (10:22)
[2017-09-20] MEDS: DOXYCYCLINE HYCLATE 100 MG TAB PO SCH (10:22)
[2017-09-20] MEDS: PANTOPRAZOLE SOD 40 MG DELAYED RELEASE TAB PO SCH (10:24)
[2017-09-20] MEDS: CALCIUM CARBONATE 1.25 GM (CA 500 MG) TAB PO SCH (10:24)
[2017-09-20] MEDS: FUROSEMIDE 40 MG TAB PO SCH (10:24)
[2017-09-20] MEDS: METOPROLOL TARTRATE 25 MG TAB PO SCH (10:24)
== END 2017-09-20 12:03 | DRG 189 ==
LOC: PHED 13:08 → PHEDA 15:02 → PH3A 16:00 → PHICU 09-07 08:45
PROVIDERS: ADMIT Family Medicine; ATTEND Family Medicine
DX: J96.01 Acute respiratory failure with hypoxia (principal); I27.20 Pulmonary hypertension, unspecified; J84.112 Idiopathic pulmonary fibrosis; J44.1 Chronic obstructive pulmonary disease with (acute) exacerbation; E83.51 Hypocalcemia; I48.0 Paroxysmal atrial fibrillation; E86.0 Dehydration; I10 Essential (primary) hypertension; E78.2 Mixed hyperlipidemia; T46.2X5A Adverse effect of other antidysrhythmic drugs, initial encounter; F10.10 Alcohol abuse, uncomplicated; I73.9 Peripheral vascular disease, unspecified; J30.9 Allergic rhinitis, unspecified; M06.9 Rheumatoid arthritis, unspecified; M81.0 Age-related osteoporosis without current pathological fracture; R94.5 Abnormal results of liver function studies; Y90.9 Presence of alcohol in blood, level not specified; R19.7 Diarrhea, unspecified; Z79.01 Long term (current) use of anticoagulants; Z79.51 Long term (current) use of inhaled steroids; Z87.891 Personal history of nicotine dependence; Z86.73 Personal history of transient ischemic attack (TIA), and cerebral infarction without residual deficits; T38.0X5A Adverse effect of glucocorticoids and synthetic analogues, initial encounter; Z66 Do not resuscitate
CPT/HCPCS: 36600; 71045; 71250; 76937; 80048; 80053; 80074; 80202; 81001; 82140; 82728; 82805; 83540; 83735; 83880; 84145; 84155; 84443; 84484; 85007; 85025; 85027; 85610; 85730; 86038; 86403; 87040; 87077; 87086; 87186; 87205; 87641; 87804; 93005; 93306; 94150; 94618; 94640; 94664; J0696; J1450; J1940; J2060; J2920; J2930; J3370; J7030; J7050; J7512